=== PATIENT | female | born 1955 | race Caucasian/White ===

== ENCOUNTER 2020-08-23 07:50 | Outpatient (REF) | payer MEDICAID, SELFPAY ==
[2020-08-23 11:45] LABS: Alanine Aminotransferase 13 U/L (0-31); Anion Gap 12 (12-20); Aspartate Amino Transferase 21 U/L (5-31); Blood Urea Nitrogen 14 mg/dL (9-16); Calcium 9.2 mg/dL (8.4-10.2); Carbon Dioxide 29 mmol/L (22-29); Chloride 105 mmol/L (96-108); Cholesterol 177 mg/dL; Estimated Glomerular Filt Rate > 60; Glucose Fasting 96 mg/dL (60-99); HDL Cholesterol 68 mg/dL; LDL Cholesterol Calculated 92 mg/dl; Potassium 4.4 mmol/l (3.3-5.1); Sodium 142 mmol/L (135-145); Triglycerides 87 mg/dL
== END 2020-08-23 07:51 | disposition home or self-care (01) ==
LOC: HO.HMGCLDS 07:50
PROVIDERS: PCP Internal Medicine; Visit Provider Internal Medicine
DX: I10 Essential (primary) hypertension (principal); I69.30 Unspecified sequelae of cerebral infarction; I35.0 Nonrheumatic aortic (valve) stenosis; E78.5 Hyperlipidemia, unspecified
CPT/HCPCS: 80048; 80061; 84450; 84460

== ENCOUNTER → 2020-10-04 08:27 | Outpatient (REF) | payer MEDICAID, SELFPAY | LOC: HO.CARD 08:27 | PROVIDERS: Visit Provider Internal Medicine Cardiovascular Disease | DX: Z13.89 Encounter for screening for other disorder (principal) ==

== ENCOUNTER → 2020-10-11 08:53 | Outpatient (BNVA) | payer MEDICAID, SELFPAY | PROVIDERS: PCP Internal Medicine; Visit Provider Internal Medicine Cardiovascular Disease | DX: R07.9 Chest pain, unspecified (principal); I35.0 Nonrheumatic aortic (valve) stenosis | CPT/HCPCS: 99212 ==

== ENCOUNTER → 2021-01-16 09:52 | Outpatient (BNVA) | payer MEDICAID, SELFPAY | PROVIDERS: PCP Internal Medicine; Visit Provider Internal Medicine Cardiovascular Disease | DX: I10 Essential (primary) hypertension (principal); I97.89 Other postprocedural complications and disorders of the circulatory system, not elsewhere classified; I48.91 Unspecified atrial fibrillation; Z95.2 Presence of prosthetic heart valve; Z79.899 Other long term (current) drug therapy | CPT/HCPCS: 99212 ==

== ENCOUNTER 2021-02-06 08:11 | Outpatient (REF) | payer MEDICAID, SELFPAY ==
[2021-02-06 12:07] LABS: Alanine Aminotransferase 12 U/L (0-31); Anion Gap 14 (12-20); Aspartate Amino Transferase 17 U/L (5-31); Blood Urea Nitrogen 13 mg/dL (9-16); Calcium 9.2 mg/dL (8.4-10.2); Carbon Dioxide 27 mmol/L (22-29); Chloride 104 mmol/L (96-108); Cholesterol 150 mg/dL; Estimated Glomerular Filt Rate > 60; Glucose Fasting 98 mg/dL (60-99); HDL Cholesterol 63 mg/dL; LDL Cholesterol Calculated 70 mg/dl; Potassium 4.2 mmol/L (3.3-5.1); Sodium 141 mmol/L (135-145); Triglycerides 87 mg/dL
[2021-02-06 12:08] LABS: Vitamin D 25-OH Total 24.4 ng/mL (>30)
== END 2021-02-06 08:12 | disposition home or self-care (01) ==
LOC: HO.HMGCLDS 08:11
PROVIDERS: Visit Provider Internal Medicine
DX: E78.5 Hyperlipidemia, unspecified (principal); I10 Essential (primary) hypertension; I35.0 Nonrheumatic aortic (valve) stenosis; Z78.0 Asymptomatic menopausal state
CPT/HCPCS: 36415; 80048; 80061; 82306; 84450; 84460

== ENCOUNTER → 2021-02-23 08:15 | Outpatient (REF) | payer MEDICAID, SELFPAY ==
--- NOTE | 2021-02-23 08:22 | CA_ITS ---
Transthoracic Echocardiogram Patient (Last, First, Middle): Carrie Gonzales M Gender: Female Date of : 1955 Age: 65 Procedure Date: 02/23/2021 Procedure Type: Transthoracic Echocardiogram Location: OP Height: 154.94 cm Weight: 61.24 kg BSA: 1.60 m2 Heart Rate: bpm BP: 160 / 98 mmHg Key Carrier: ERIN Referring MD: Levon Reardon MD Television Writer: Levon Reardon MD Symptoms: Z95.2 - Presence of prosthetic heart valve Study Quality: Fair ECG Rhythm: Sinus Conclusions: - 1. Normal LV systolic function with impaired relaxation filling pattern 2. Normally function bioprosthetic aortic valve with mean gradient of 10 mm of mercury 3. Normal RV systolic pressure next 4. No pericardial effusion Findings Left Ventricle Normal left ventricular size, thickness, and systolic function. The visually estimated ejection fraction is between 60-65%. Spectral Doppler is indicative of an impaired relaxation filling pattern. E/E prime ratio is between 8 and 15 consistent with indeterminate filling pressures. There is mild septal asymmetric hypertrophy. Right Ventricle Normal right ventricular cavity size and systolic function. Atria Both atria are normal in size. There is no evidence of interatrial shunt. Aortic Valve A bioprosthetic aortic valve is present. The prosthetic aortic valve appears to be functioning normally. The mean gradient is 10 mmHg. There is no aortic valve regurgitation. A stented bioprosthesis in aortic position, well seated without abnormal rocking motion. Mitral Valve Normal mitral valve structure and function. There is trace mitral valve regurgitation. There is no mitral valve stenosis. Pulmonic Valve The pulmonic valve is likely normal. There is trace pulmonic valve regurgitation. Tricuspid Valve Normal tricuspid valve structure. There is trace tricuspid valve regurgitation. The right ventricular systolic pressure is normal. The right ventricular systolic pressure is 22 mmHg. Normal right atrial pressure. There is no evidence of pulmonary hypertension. Great Vessels All visible segments of the aorta are normal in size. The pulmonary artery was not well visualized. Venous The inferior vena cava is normal in size and collapses greater than 50% with inspiration. Pericardium/Pleural There is no evidence of pericardial effusion. Prior Study Comparison Changes noted compared to prior study dated: 06/02/2020. A normally functioning bioprosthetic aortic valve is present in place of severe aortic stenosis Measurements M-Mode Liner Measurements Normals - Women/Men AOV Cusps: 1.20 1.5-2.6 cm/m2 2D Linear Measurements IVSd: 1.30 0.6-0.9/0.6-1.0 cm LVIDd: 4.71 3.9-5.3/4.2-5.9 cm LVIDd Index: 2.94 2.4-3.2/2.2-3.1 cm/m2 LVIDs: 3.21 2.0-3.6 cm LVPWd: 0.93 0.7-1.1 cm Ao Root: 2.60 2.1-3.5 cm LA Diam: 3.30 2.7-3.8/3.0-4.0 cm LAIDs Index: 2.06 1.5-2.3 cm/m2 LV Mass: 253.89 67-162/88-224 g LV Mass Index: 158.68 43-95/49-115 g/m2 LVOT Diam: 2.20 3.0+(-)1.3 cm 2D Systolic Function EF 4C: 63.80 >55% EF 2C: 62.60 >55% EF BiP: 64.90 >55% Mitral Valve MV Pk E: 0.79 MV PK A: 0.99 MV Decel Time: 282.00 E/A: 0.80 E'Lateral: 10.10 E'Medial: 4.35 E/E' Med: 18.20 E/E' Lat: 7.80 PHT: 83.00 MVA PHT: 2.65 Decel Ritchie: 2.81 Aortic Valve AoV Pk Suman: 2.08 AoV Mn Suman: 1.45 AoV VTI: 0.50 AoV Pk Grad: 17.00 Aov Mn Grad: 10.00 [place] Cont.VTI: 1.15 LVOT LVOT Pk Suman: 0.74 LVOT Mn Suman: 0.49 LVOT VTI: 0.15 LVOT Pk Grad: 2.00 LVOT Mn Grad: 1.00 LVOT Diam: 2.20 LVOT Area: 3.80 Diastolic Function MV Pk E: 0.79 MV Pk A: 0.99 E/A: 0.80 E'Medial: 4.35 E/E' Med: 18.20 E' Laterial: 10.10 E/E' Lat: 7.80 Tricuspid Valve TR Pk Suman: 2.19 TR Pk Grad: 19.00 RA Press: 3.00 RVSP: 22.00 Great Vessels Aorta Ao Root-2D: 2.60 2.0-3.7 cm Ao Asc: 3.70 2.1-3.4 cm Ao Arch: 2.90 Pulmonary Valve PV Pk Suman: 1.13 Peak PV Grad: 5.00 Updated in Other Vendor System with Status of Final Levon Reardon MD electronically signed on 02/24/2021 11:39:58 AM with status of Final
--- NOTE | 2021-02-23 08:30 | ECG_ITS ---
Hook-up date: 2021-02-23 09:40:00 Duration: 26:15:00 Test Indications: PVC Medications: 13682 QRS complexes 29 Ventricular ectopics which represent <1 % of total QRS comp. 20 Supraventricular ectopics which represent <1 % of total QRS comp. * Paced QRS complexs which represent % of total QRS comp. VENTRICULAR ECTOPY 29 Isolated 0 Bigeminal Cycles 0 Couplets 0 Runs 0 Beats in Runs * Beats LONGEST at * BPM at :: -- * Beats FASTEST at * BPM at :: -- SUPRAVENTRICULAR ECTOPY 12 Isolated 4 Couplets 0 Runs 0 Beats in Runs * Beats LONGEST at * BPM at :: -- * Beats FASTEST at * BPM at :: -- HEART RATES 41 MIN at 23:04:20 2021-02-23 58 AVG 78 MAX at 11:56:54 2021-02-23 LONGEST RR 1.7280 secs at 23:57:17 2021-02-23 S-T LEVELS Channel 1 - 128 mm at 09:40:00 2021-02-23 - 128 mm at 09:40:00 2021-02-23 Channel 2 - 128 mm at 09:40:00 2021-02-23 - 128 mm at 09:40:00 2021-02-23 Channel 3 - 128 mm at 02:85:91 -- - 128 mm at 02:85:91 Underlying rhythm is sinus; Average ventricular rate 58/min; range 41-78/min; About 57% of the time, rate <60/min; Rare PACs, PVCs; No symptoms described in patient diary. Referred By: Levon Reardon Overread By: AVA MERCADO
== END ==
LOC: HO.CARD 08:15
PROVIDERS: Visit Provider Internal Medicine Cardiovascular Disease
DX: I49.3 Ventricular premature depolarization (principal); Z95.3 Presence of xenogenic heart valve
CPT/HCPCS: 93225; 93226; 93306

== ENCOUNTER → 2021-03-09 09:58 | Outpatient (BNVA) | payer MEDICAID, SELFPAY | PROVIDERS: PCP Internal Medicine; Referring Provider Internal Medicine; Visit Provider Nurse Practitioner Family | DX: I97.89 Other postprocedural complications and disorders of the circulatory system, not elsewhere classified (principal); I48.91 Unspecified atrial fibrillation; I10 Essential (primary) hypertension; E78.5 Hyperlipidemia, unspecified; Z98.890 Other specified postprocedural states; Z95.2 Presence of prosthetic heart valve | CPT/HCPCS: 99212 ==

== ENCOUNTER → 2021-06-21 08:42 | Outpatient (BNVA) | payer MEDICAID, SELFPAY | PROVIDERS: PCP Internal Medicine; Referring Provider Internal Medicine; Visit Provider Internal Medicine Cardiovascular Disease | DX: I10 Essential (primary) hypertension (principal); Z95.2 Presence of prosthetic heart valve | CPT/HCPCS: 99212 ==

== ENCOUNTER 2021-06-29 09:01 | Outpatient (REF) | payer MEDICAID, SELFPAY ==
[2021-06-29 11:57] LABS: Alanine Aminotransferase 14 U/L (0-31); Anion Gap 14 (12-20); Aspartate Amino Transferase 22 U/L (5-31); Blood Urea Nitrogen 10 mg/dL (9-16); Carbon Dioxide 28 mmol/L (22-29); Chloride 105 mmol/L (96-108); Cholesterol 169 mg/dL; Estimated Glomerular Filt Rate > 60; Glucose Fasting 86 mg/dL (60-99); HDL Cholesterol 64 mg/dL; LDL Cholesterol Calculated 87 mg/dl; Potassium 4.5 mmol/L (3.3-5.1); Sodium 142 mmol/L (135-145); Triglycerides 93 mg/dL
[2021-06-29 12:06] LABS: Vitamin D 25-OH Total 70.9 ng/mL (>30)
== END 2021-06-29 09:02 | disposition home or self-care (01) ==
LOC: HO.HMGCLDS 09:01
PROVIDERS: PCP Internal Medicine; Visit Provider Internal Medicine
DX: E55.9 Vitamin D deficiency, unspecified (principal); E78.5 Hyperlipidemia, unspecified; I10 Essential (primary) hypertension
CPT/HCPCS: 36415; 80048; 80061; 82306; 84450; 84460

== ENCOUNTER 2021-08-15 08:29 | Outpatient (REF) | payer MEDICAID, SELFPAY ==
--- NOTE | ~2021-08-15 | MM_ITS ---
EXAMINATION: MM SCREENING DIGITAL BREAST TOMOSYNTHESIS, BILATERAL CLINICAL INFORMATION: Screening. Asymptomatic. The lifetime risk of breast cancer based on the Tyrer-Cuzick Model is 5%. COMPARISON: Mammography: 11/20/2019 (baseline) TECHNIQUE: Digital breast tomosynthesis is performed in both the craniocaudal and mediolateral oblique views along with computer-aided detection (CAD). Synthesized 2D images are generated from the tomosynthesis. Additional left MLO view is provided. FINDINGS: There are scattered areas of fibroglandular density (ACR BI-RADS breast composition Category b). There are no significant masses, abnormal calcifications, or other abnormalities. The axilla and skin contours are unremarkable. No significant baseline exam. MM/MM tomosynthesis screening BI IMPRESSION: No mammographic evidence of malignancy. ASSESSMENT: BI-RADS 1: Negative RECOMMENDATION: Routine annual mammography screening. This patient's information was entered into a reminder system with a target due date for their next mammogram.
== END 2021-08-15 08:30 | disposition home or self-care (01) ==
LOC: HO.MAMMO 08:29
PROVIDERS: Visit Provider Internal Medicine
DX: Z12.31 Encounter for screening mammogram for malignant neoplasm of breast (principal)
CPT/HCPCS: 77063; 77067

== ENCOUNTER 2021-11-29 03:25 | Emergency (ER) | payer MEDICAID, SELFPAY ==
--- NOTE | ~2021-11-29 | CT_ITS ---
EXAMINATION: CT HEAD WITHOUT CONTRAST CLINICAL INFORMATION: Dizziness, history of CVA COMPARISON: 10/03/2019 TECHNIQUE: Contiguous axial imaging was performed from the skull base to vertex without intravenous administration of contrast. This CT examination was performed using dose optimization techniques as appropriate, variously including the following: *Automated exposure control *Adjustment of mA and/or kV according to patient size (this includes techniques or standardized protocols for targeted exams where dose is matched to indication/reason for exam; i.e. extremities or head) *Use of iterative reconstruction technique DLP: 610 mGy-cm FINDINGS: There is no evidence of acute intracranial hemorrhage or territorial infarction. No abnormal mass effect or midline shift is seen. Reyes to white matter differentiation is well preserved. No extra-axial fluid collections are identified. The ventricles are normal in size. There is a region of high right frontoparietal encephalomalacia at the location of prior intraparenchymal hemorrhage from 10/03/2019. There is mild periventricular white matter hypoattenuation consistent with chronic small vessel ischemic disease. The osseous structures and soft tissues are normal. The mastoid air cells and visualized portions of the paranasal sinuses are well aerated. CT/CT head/brain wo con IMPRESSION: No acute intracranial pathology. Region of high right frontoparietal encephalomalacia.
[2021-11-29 03:29] VITALS: BP 157/98; PULSE 81; RESP 18; TEMP 36.4; O2SAT 96; BMI 25.4
--- NOTE | 2021-11-29 03:38 | PC.NURSE ---
Pt ambulatory to room, MD Delacruz notified of pt sx and hx, NIDIA 90 min REMOTE INPATIENT CODER
--- NOTE | 2021-11-29 03:41 | ECG_ITS ---
Test Reason : TIA RULEOUT Blood Pressure : / mmHG Vent. Rate : 075 BPM Atrial Rate : 075 BPM P-R Int : 294 ms QRS Dur : 096 ms QT Int : 382 ms P-R-T Axes : 064 -41 097 degrees QTc Int : 426 ms Sinus rhythm with 1st degree A-V block Left axis deviation Nonspecific ST and T wave abnormality Abnormal ECG When compared with ECG of 03-OCT-2019 18:10, T wave inversion more evident in Lateral leads Referred By: Generic ED Physician Electronically Signed By:AVA MERCADO
[2021-11-29 03:50] LABS: Glucose, Whole Blood 125 mg/dL (60-115)
[2021-11-29 03:54] LABS: MANUAL DIFF FLAG NO
[2021-11-29 03:55] LABS: Basophils Percent Auto 0.7 % (0-2); Eosinophils Absolute Auto 0.3 X10*3/uL (0.0-0.4); Eosinophils Percent Auto 6.9 % (0-4); Hematocrit 40.3 % (37.0-47.0); Hemoglobin 12.7 g/dl (12.0-16.0); Imm Gran Abs Auto 0.01 X10*3/uL (0.00-0.03); Imm Gran Pct Auto 0.2 % (0.0-0.4); Lymphocytes Absolute Auto 1.6 X10*3/uL (1.2-4.9); Lymphocytes Percent Auto 35.3 % (20-40); Mean Corpuscular HGB Conc 31.5 g/dl (31.0-35.0); Mean Corpuscular Hemoglobin 27.7 pg (27.0-33.0); Mean Corpuscular Volume 87.8 fL (80.0-98.0); Mean Platelet Volume 9.9 fL (9.4-12.3); Monocytes Absolute Auto 0.4 X10*3/uL (0.1-1.2); Monocytes Percent Auto 8.1 % (2-11); Neutrophils Absolute Auto 2.2 x10*3/uL (2.0-8.3); Neutrophils Percent Auto 48.8 % (45-73); Platelet Count 284 X10*3/uL (160-400); Red Blood Count 4.59 X10*6/uL (4.20-5.50); Red Cell Distribution Width 14.1 % (11.0-16.0); White Blood Count 4.5 X10*3/uL (4.8-10.8)
--- NOTE | 2021-11-29 04:01 | ED_ITS ---
HPI - Dizziness General Chief Complaint: Dizziness Stated Complaint: High Blood Pressure Time Seen by Provider: 11/29/21 03:52 Source: patient and EMS Mode of arrival: EMS Limitations: no limitations History of Present Illness HPI Narrative: Patient comes emergency room complaining of dizziness. Patient states that she woke up prior to arrival feeling dizzy, patient decided to get up to go to the bathroom. Patient states that she was feeling lightheaded. Patient has history of vertigo, states she was not sure if she had vertigo., states the room was not spinning but she feels lightheaded. Patient did not fall, when she reached the bathroom, patient vomited. When patient arrived to emergency room, patient states that all the dizziness had resolved. Patient states that she did not have any episodes of facial drooping to her knowledge, no numbness or tingling. Patient states that she has chronic weakness on her left lower extremity due to a previous hemorrhagic stroke. Patient states that all her symptoms today lasted for a few minutes Related Data Previous Rx's Medication Instructions Recorded aspirin 81 mg tablet,delayed 81 mg PO DAILY #30 tab 10/11/20 release (Ecotrin Low Strength) cholecalciferol (vitamin D3) 125 125 mcg PO DAILY 90 Days #90 cap 06/14/21 mcg (5,000 unit) capsule metoprolol succinate 50 mg 50 mg PO DAILY #30 tab 06/21/21 tablet,extended release 24 hr (Toprol XL) rosuvastatin 10 mg tablet 10 mg PO DAILY #30 tab 07/06/21 amoxicillin 500 mg capsule 2,000 mg PO ONCE #4 cap 07/28/21 meclizine 25 mg tablet 25 mg PO TID PRN #10 tab 11/29/21 Allergies Allergy/AdvReac Type Severity Reaction Status Date / Time No Known Allergies Allergy Verified 11/29/21 03:28 [No Known Allergies*] Review of Systems Verdana 4l Review of Systems: Verdana 4d Verdana 4d Constitutional : No Weight loss, No Fever, No Chills, No Night Sweats, No Fatigue, No Malaise ENT/Mouth : No Hearing loss, No Ear Pain, No Nasal Congestion, No Sinus Pain, No Hoarseness, No sore throat, No Rhinorrhea, No Swallowing DifficultyDifficulty Eyes: No Eye Pain, No Swelling, No Redness, No Foreign Body, No Discharge, No Vision Changes Cardiovascular : No Chest Pain, No SOB, No Dyspnea on Exertion, No Orthopnea, No Edema, No Palpitations Respiratory : No Cough, No Sputum, No Wheezing, No Smoke Exposure, No Dyspnea Gastrointestinal : No Nausea, No Vomiting, No Diarrhea, No Constipation, No abdominal Pain, No Hematochezia, No Melena Genitourinary : no irregular bleeding, No Dysuria, No Urinary Frequency, No Hematuria, No Urinary Incontinence, No Urgency, No Flank Pain, No Urinary Flow Changes, No Hesitancy Musculoskeletal : No joint pain, No Myalgias, No Joint Swelling Skin : No Skin Lesions, No rash Neuro : No Weakness, No Numbness, No Paresthesias, No Loss of Consciousness, dizziness that self-resolved, No Headache Psych : No Anxiety/Panic, No Depression, No SI/HI/AH/VH, No Social Issues, Heme/Lymph: No Bruising, No Bleeding,No Lymphadenopathy Endocrine : No Polyuria, No Polydipsia, No Temperature Intolerance [facility] Past Medical History Medical History Essential hypertension History of CVA with residual deficit History of intracerebral hemorrhage without residual deficit Hyperlipidemia LDL goal <70 Postoperative atrial fibrillation Severe aortic stenosis Vitamin D deficiency Surgical History History of cardiac catheterization Status post aortic valve replacement Family History Family History Father Myocardial infarction Coronary artery disease Mother Coronary artery disease CVA (cerebral vascular accident) Mental health disorder Other No known health problems Social History Social History Housing: House Alcohol intake: never Patient Tobacco Use Status: Never used Tobacco e-Cigarette/Vaping Use: Never Used Second Hand Smoke Exposure: No Advance Directives: No service: No Current occupational status: retired Physical Exam Verdana 4l Vital Signs: Verdana 4d Verdana 4d Vital Signs: Verdana 4d Verdana 4Bd Last Vital Signs Verdana 4d Channel Sales Director New 4d Channel Sales Director New 4d Temp 97.5 F 11/29/21 03:29 Channel Sales Director New 4d Pulse 86 11/29/21 04:16 Channel Sales Director New 4d Resp 18 11/29/21 03:29 BP 141/96 H 11/29/21 04:16 Pulse Ox 96 11/29/21 03:29 BMI result Body Mass Index 25.4 Const: Other: Appearance: Alert. Oriented X3. No acute distress. Well-appearing Eyes: Pupils equal, round and reactive to light. ENT: Pharynx normal. Neck: Normal inspection. Neck supple. No lymph nodes noted. No crepitus CVS: Normal heart rate and rhythm. Pulses normal. Normal S1 and S2 Respiratory: No respiratory distress. Breath sounds normal. No Wheezing. No rales Abdomen: Soft and nontender. No rigidity. No distention. good BS x4 Skin: Skin warm and dry. Normal skin color. Normal skin turgor. Extremities: No lower extremity edema. No Lacerations. No Rash Neuro: Oriented X 3. No motor deficit. No sensory deficit. Moving all extermities. No slurred speech. Cranial nerves 2-12 grossly intact NIH Stroke Scale Level of Consciousness: Alert Level of Consciousness Questions: Answers both questions correctly Level of Consciousness Commands: Performs both tasks correctly Best Gaze: Normal Visual: No visual loss Facial Palsy: Normal Motor Arm (Right): No drift Motor Arm (Left): No drift Motor Leg (Right): No drift Motor Leg (Left): No drift Limb Ataxia: Absent Sensory: Normal Best Language: No aphasia Dysarthia: Normal Extinction and Inattention: No abnormality Score: 0 Course Course Course Narrative: I discussed the labs and CT with the patient, no acute findings. Orthostatic vitals negative. Patient states that she feels well. Patient usually walks with a cane. However, patient was able to walk with fast steady gait and unassisted. Patient did not have any dizziness. Patient states that she feels well. TIA is not suspected at this time MDM - Dizziness Lab Data Result diagrams: 11/29/21 03:46 11/29/21 03:46 Labs: Lab Results 11/29/21 11/29/21 11/29/21 Range/Units 03:41 03:46 03:46 WBC 4.5 L (4.8-10.8) X10*3/uL RBC 4.59 (4.20-5.50) X10*6/uL Hgb 12.7 (12.0-16.0) g/dl Hct 40.3 (37.0-47.0) % MCV 87.8 (80.0-98.0) fL MCH 27.7 (27.0-33.0) pg MCHC 31.5 (31.0-35.0) g/dl RDW 14.1 (11.0-16.0) % Plt Count 284 (160-400) X10*3/uL MPV 9.9 (9.4-12.3) fL Immature Gran % (Auto) 0.2 (0.0-0.4) % Neut % (Auto) 48.8 (45-73) % Lymph % (Auto) 35.3 (20-40) % Josephine % (Auto) 8.1 (2-11) % Eos % (Auto) 6.9 H (0-4) % Baso % (Auto) 0.7 (0-2) % Lymph # (Auto) 1.6 (1.2-4.9) X10*3/uL Josephine # (Auto) 0.4 (0.1-1.2) X10*3/uL Eos # (Auto) 0.3 (0.0-0.4) X10*3/uL Baso # (Auto) 0.0 (0.0-0.2) X10*3/uL Abs Immat Gran (auto) 0.01 (0.00-0.03) X10*3/uL Absolute Neuts (auto) 2.2 (2.0-8.3) x10*3/uL Absolute Nucleated RBC 0.000 (0.0-0.012) X10*3/uL Nucleated RBC % (auto) 0.0 (0.0-0.2) /100WBC Sodium 142 (135-145) mmol/L Potassium 3.7 (3.3-5.1) mmol/L Chloride 106 (96-108) mmol/L Carbon Dioxide 28 (22-29) mmol/L Anion Gap 12 (12-20) BUN 16 (9-16) mg/dL Creatinine 0.94 (0.5-1.4) mg/dL Estim Creat Clear Calc 48.0 Estimated GFR 59 POC Glucose 125 H (60-115) mg/dL Random Glucose 123 H (60-115) mg/dL Calcium 10.0 (8.4-10.2) mg/dL Total Bilirubin 0.6 (0.0-1.0) mg/dL AST 26 (5-31) U/L ALT 23 (0-31) U/L Alkaline Phosphatase 55 (39-117) U/L Troponin I High Sens (<3.5-17.0) ng/L Total Protein 7.1 (6.5-8.0) g/dL Albumin 4.4 (3.5-5.0) g/dL COVID-19 ([facility]) (Negative) COVID-19 Clin Com 11/29/21 11/29/21 Range/Units 03:46 03:46 WBC (4.8-10.8) X10*3/uL RBC (4.20-5.50) X10*6/uL Hgb (12.0-16.0) g/dl Hct (37.0-47.0) % MCV (80.0-98.0) fL MCH (27.0-33.0) pg MCHC (31.0-35.0) g/dl RDW (11.0-16.0) % Plt Count (160-400) X10*3/uL MPV (9.4-12.3) fL Immature Gran % (Auto) (0.0-0.4) % Neut % (Auto) (45-73) % Lymph % (Auto) (20-40) % Josephine % (Auto) (2-11) % Eos % (Auto) (0-4) % Baso % (Auto) (0-2) % Lymph # (Auto) (1.2-4.9) X10*3/uL Josephine # (Auto) (0.1-1.2) X10*3/uL Eos # (Auto) (0.0-0.4) X10*3/uL Baso # (Auto) (0.0-0.2) X10*3/uL Abs Immat Gran (auto) (0.00-0.03) X10*3/uL Absolute Neuts (auto) (2.0-8.3) x10*3/uL Absolute Nucleated RBC (0.0-0.012) X10*3/uL Nucleated RBC % (auto) (0.0-0.2) /100WBC Sodium (135-145) mmol/L Potassium (3.3-5.1) mmol/L Chloride (96-108) mmol/L Carbon Dioxide (22-29) mmol/L Anion Gap (12-20) BUN (9-16) mg/dL Creatinine (0.5-1.4) mg/dL Estim Creat Clear Calc Estimated GFR POC Glucose (60-115) mg/dL Random Glucose (60-115) mg/dL Calcium (8.4-10.2) mg/dL Total Bilirubin (0.0-1.0) mg/dL AST (5-31) U/L ALT (0-31) U/L Alkaline Phosphatase (39-117) U/L Troponin I High Sens 5.8 (<3.5-17.0) ng/L Total Protein (6.5-8.0) g/dL Albumin (3.5-5.0) g/dL COVID-19 ([facility]ERS) Negative (Negative) COVID-19 Clin Com See Note Discharge Plan Discharge Clinical Impression: Dizziness Patient Disposition: Home, Self-Care Instructions: Dizziness (ED) Additional Instructions: Please follow-up with your primary care physician tomorrow. If you have any worsening or new symptoms, please return to the emergency room or call 911 Prescriptions: New meclizine 25 mg tablet 25 mg PO TID PRN (Reason: dizziness) Qty: 10 0RF No Action cholecalciferol (vitamin D3) 125 mcg (5,000 unit) capsule 125 mcg PO DAILY 90 Days Qty: 90 1RF amoxicillin 500 mg capsule 2,000 mg PO ONCE Qty: 4 1RF Rx Instructions: Take 4 capsules by mouth 1 hour before procedure rosuvastatin 10 mg tablet 10 mg PO DAILY Qty: 30 5RF aspirin [Ecotrin Low Strength] 81 mg tablet,delayed release (DR/EC) 81 mg PO DAILY Qty: 30 0RF metoprolol succinate [Toprol XL] 50 mg tablet extended release 24 hr 50 mg PO DAILY Qty: 30 5RF
--- NOTE | 2021-11-29 04:01 | PC.NURSE ---
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 Per pt, woke up and felt lighteaded. denies any room spinning. Per pt, felt nauseous and vomited x 1 Pt states symptoms have resolved. Pt states LT leg feels numb but residual from previous CVA 2 years ago AxO x 4, clear and complete sentences Will continue to monitor
[2021-11-29 04:09] LABS: Alanine Aminotransferase 23 U/L (0-31); Albumin Level 4.4 g/dL (3.5-5.0); Alkaline Phosphatase 55 U/L (39-117); Anion Gap 12 (12-20); Aspartate Amino Transferase 26 U/L (5-31); Bilirubin Total 0.6 mg/dL (0.0-1.0); Blood Urea Nitrogen 16 mg/dL (9-16); Carbon Dioxide 28 mmol/L (22-29); Chloride 106 mmol/L (96-108); Estimated Glomerular Filt Rate 59; Glucose Random 123 mg/dL (60-115); Potassium 3.7 mmol/L (3.3-5.1); Sodium 142 mmol/L (135-145); Total Protein 7.1 g/dL (6.5-8.0)
[2021-11-29 04:10] LABS: COVID-19 Test Negative (Negative); IDNOW Serial# 9DD0AD1C
[2021-11-29 04:14] VITALS: BP 154/89; PULSE 84
[2021-11-29 04:15] VITALS: BP 149/93; PULSE 75
[2021-11-29 04:16] VITALS: BP 141/96; PULSE 86
[2021-11-29] MEDS: Meclizine HCl 25 MG TABLET 50 MG PO (04:30)
[2021-11-29 04:36] LABS: Troponin-I High Sensitivity 5.8 ng/L (<3.5-17.0)
== END 2021-11-29 05:28 | disposition home or self-care (01) ==
PROVIDERS: Emergency Provider Emergency Medicine; PCP Internal Medicine
DX: R42 Dizziness and giddiness (principal); I10 Essential (primary) hypertension; Z20.822 Contact with and (suspected) exposure to COVID-19; Z79.899 Other long term (current) drug therapy
CPT/HCPCS: 36415; 70450; 80053; 82947; 84484; 85025; 87635; 93005; 99283; 99284

== ENCOUNTER 2021-12-05 08:40 | Outpatient (REF) | payer MEDICAID, SELFPAY ==
[2021-12-05 12:09] LABS: Vitamin D 25-OH Total 73.3 ng/mL (>30)
[2021-12-05 12:13] LABS: Alanine Aminotransferase 17 U/L (0-31); Anion Gap 13 (12-20); Aspartate Amino Transferase 24 U/L (5-31); Blood Urea Nitrogen 17 mg/dL (9-16); Carbon Dioxide 29 mmol/L (22-29); Chloride 104 mmol/L (96-108); Cholesterol 176 mg/dL; Estimated Glomerular Filt Rate > 60; Glucose Fasting 99 mg/dL (60-99); HDL Cholesterol 72 mg/dL; LDL Cholesterol Calculated 88 mg/dl; Sodium 142 mmol/L (135-145); Triglycerides 81 mg/dL
== END 2021-12-05 08:41 | disposition home or self-care (01) ==
LOC: HO.HMGCLDS 08:40
PROVIDERS: Visit Provider Internal Medicine
DX: E55.9 Vitamin D deficiency, unspecified (principal); E78.5 Hyperlipidemia, unspecified; I10 Essential (primary) hypertension; Z95.2 Presence of prosthetic heart valve
CPT/HCPCS: 36415; 80048; 80061; 82306; 84450; 84460

== ENCOUNTER → 2021-12-11 07:24 | Outpatient (REF) | payer MEDICAID, SELFPAY ==
--- NOTE | 2021-12-11 07:28 | CA_ITS ---
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 Normal LV systolic function with impaired relaxation filling pattern 2. Normally function bioprosthetic aortic valve with mean gradient of 10 mmHg 3. Normal RV systolic pressure 4. No gross pericardial effusion Findings Left Ventricle Normal left ventricular size, thickness, and systolic function. The visually estimated ejection fraction is between 60-65%. Regional wall motion abnormalities can not be excluded due to suboptimal endocardial definition. Spectral Doppler is indicative of an impaired relaxation filling pattern. There is mild septal asymmetric hypertrophy. Right Ventricle Normal right ventricular cavity size and systolic function. Atria The left atrium is likely dilated. There is lipomatous hypertrophy of the interatrial septum. There is no evidence of interatrial shunt. The right atrium is normal in size. Aortic Valve A bioprosthetic aortic valve is present. The prosthetic aortic valve appears to be functioning normally. The mean gradient is 10 mmHg. There is no aortic valve regurgitation. Mitral Valve There is mild anterior and moderate posterior mitral leaflet thickening. The posterior mitral leaflet has restricted mobility. There is mild mitral annular calcification. There is trace mitral valve regurgitation. There is no mitral valve stenosis. Pulmonic Valve The pulmonic valve was not well visualized. Tricuspid Valve Likely normal tricuspid valve structure and function. There is mild tricuspid valve regurgitation. The right ventricular systolic pressure is normal. The right ventricular systolic pressure is 28 mmHg. Normal right atrial pressure. There is no evidence of pulmonary hypertension. Great Vessels All visible segments of the aorta are normal in size. The pulmonary artery was not well visualized. Venous The inferior vena cava is normal in size and collapses greater than 50% with inspiration. Pericardium/Pleural There is no evidence of pericardial effusion. Prior Study Comparison No significant change compared to prior study dated: 02/23/2021. Measurements 2D Linear Measurements IVSd: 1.35 0.6-0.9/0.6-1.0 cm LVIDd: 4.36 3.9-5.3/4.2-5.9 cm LVIDd Index: 2.56 2.4-3.2/2.2-3.1 cm/m2 LVIDs: 2.79 2.0-3.6 cm LVPWd: 0.95 0.7-1.1 cm Ao Root: 3.30 2.1-3.5 cm LA Diam: 3.20 2.7-3.8/3.0-4.0 cm LAIDs Index: 1.88 1.5-2.3 cm/m2 LV Mass: 221.58 67-162/88-224 g LV Mass Index: 130.34 43-95/49-115 g/m2 LVOT Diam: 2.30 3.0+(-)1.3 cm 2D Systolic Function EF 4C: 61.70 >55% EF 2C: 64.30 >55% EF BiP: 61.80 >55% Mitral Valve MV Pk E: 0.62 MV PK A: 1.08 MV Decel Time: 193.00 E/A: 0.60 E'Lateral: 8.59 E'Medial: 5.33 E/E' Med: 11.60 E/E' Lat: 7.20 PHT: 57.00 MVA PHT: 3.86 Decel Moody: 3.21 Aortic Valve AoV Pk Suman: 2.07 AoV Mn Suman: 1.50 AoV VTI: 0.45 AoV Pk Grad: 17.00 Aov Mn Grad: 10.00 [place] Cont.VTI: 2.26 LVOT LVOT Pk Suman: 1.06 LVOT Mn Suman: 0.72 LVOT VTI: 0.24 LVOT Pk Grad: 4.00 LVOT Mn Grad: 2.00 LVOT Diam: 2.30 LVOT Area: 4.15 Diastolic Function MV Pk E: 0.62 MV Pk A: 1.08 E/A: 0.60 E'Medial: 5.33 E/E' Med: 11.60 E' Laterial: 8.59 E/E' Lat: 7.20 Right Ventricle TAPSE (mm): 17.10 TVS' Suman: 8.27 Tricuspid Valve TR Pk Suman: 2.48 TR Pk Grad: 25.00 RA Press: 3.00 RVSP: 28.00 Great Vessels Aorta Ao Root-2D: 3.30 2.0-3.7 cm Ao Asc: 3.40 2.1-3.4 cm Ao Arch: 3.20 Updated in Other Vendor System with Status of Final Levon Reardon MD electronically signed on 12/11/2021 12:14:36 PM with status of Final
== END ==
LOC: HO.CARD 07:24
PROVIDERS: PCP Internal Medicine; Visit Provider Internal Medicine Cardiovascular Disease
DX: Z95.2 Presence of prosthetic heart valve (principal)
CPT/HCPCS: 93306

== ENCOUNTER → 2021-12-21 08:53 | Outpatient (BNVA) | payer MEDICAID, SELFPAY | PROVIDERS: PCP Internal Medicine; Referring Provider Internal Medicine; Visit Provider Internal Medicine Cardiovascular Disease | DX: R42 Dizziness and giddiness (principal); I10 Essential (primary) hypertension; Z95.2 Presence of prosthetic heart valve | CPT/HCPCS: 99212 ==

== ENCOUNTER → 2022-02-09 12:56 | Outpatient (REF) | payer MEDICAID, SELFPAY ==
--- NOTE | 2022-02-09 13:30 | ECG_ITS ---
Hook-up date: 2022-02-09 12:12:00 Duration: 47:59:00 Test Indications: DIZZINESS Medications: 234713 QRS complexes 456 Ventricular ectopics which represent <1 % of total QRS comp. 49 Supraventricular ectopics which represent <1 % of total QRS comp. * Paced QRS complexs which represent % of total QRS comp. VENTRICULAR ECTOPY 452 Isolated 0 Bigeminal Cycles 2 Couplets 0 Runs 0 Beats in Runs * Beats LONGEST at * BPM at :: -- * Beats FASTEST at * BPM at :: -- SUPRAVENTRICULAR ECTOPY 37 Isolated 1 Couplets 3 Runs 10 Beats in Runs 4 Beats LONGEST at 102 BPM at 23:31:58 2022-02-10 3 Beats FASTEST at 120 BPM at 22:32:16 2022-02-09 HEART RATES 45 MIN at 21:21:43 2022-02-10 77 AVG 108 MAX at 05:31:13 2022-02-10 LONGEST RR 1.4800 secs at 21:38:24 2022-02-10 S-T LEVELS Channel 1 - 128 mm at 12:12:00 2022-02-09 - 128 mm at 12:12:00 2022-02-09 Channel 2 - 128 mm at 12:12:00 2022-02-09 - 128 mm at 12:12:00 2022-02-09 Channel 3 - 128 mm at 03:13:11 -- - 128 mm at 03:13:11 Underlying rhythm is sinus; Average ventricular rate 77/min; range 45-108/min; Rare supraventricular ectopy with minimal burden; Rare ventricular ectopy with minimal burden; 2 couplets; Patient did not report any symptoms in the diary Referred By: Levon Reardon Overread By: AVA MERCADO
== END ==
LOC: HO.CARD 12:56
PROVIDERS: PCP Internal Medicine; Visit Provider Internal Medicine Cardiovascular Disease
DX: R42 Dizziness and giddiness (principal)
CPT/HCPCS: 93225; 93226

== ENCOUNTER 2022-07-13 12:19 | Emergency (ER) | payer MEDICAID, SELFPAY ==
--- NOTE | ~2022-07-13 | XR_ITS ---
EXAMINATION: XR CHEST CLINICAL INFORMATION: Chest pain and weakness COMPARISON: None TECHNIQUE: Portable semiupright 12:19 PM view of the chest was obtained. FINDINGS: Slight cephalization of pulmonary vasculature. Mild cardiomegaly. Evidence of previous cardiac surgery. No major zones of airspace disease or pleural disease or ectopic air. XR/XR chest 1V IMPRESSION: Mild pulmonary vascular congestion as above. No infiltrate.
--- NOTE | ~2022-07-13 | CT_ITS ---
EXAMINATION: CT HEAD WITHOUT CONTRAST (STROKE PROTOCOL) CLINICAL INFORMATION: Stroke protocol. Slurred speech. Confusion. Left leg weakness. COMPARISON: Previous head CT scans most recent November 2021 TECHNIQUE: Contiguous axial imaging was performed from the skull base to vertex without intravenous administration of contrast. This CT examination was performed using dose optimization techniques as appropriate, variously including the following: *Automated exposure control *Adjustment of mA and/or kV according to patient size (this includes techniques or standardized protocols for targeted exams where dose is matched to indication/reason for exam; i.e. extremities or head) *Use of iterative reconstruction technique DLP: 623 mGy-cm FINDINGS: There is no evidence of an extra-axial collection. There is a new area of intraparenchymal hemorrhage seen in the right frontal parietal subcortical and periventricular white matter region. This measures 2.6 x 3.4 x 2.3 cm. There is some surrounding edema. The ventricles and extra-axial CSF spaces are appropriate. There is nonspecific periventricular white matter disease. There is an old right periventricular and subcortical white matter parietal infarct or area of encephalomalacia that is unchanged. Review at bone windows is unremarkable. Visualized paranasal sinuses, mastoid air cells and middle ears are clear. CT/CT head for stroke IMPRESSION: New area of intraparenchymal hemorrhage in the right frontal and parietal lobes measuring 2.6 x 3.4 x 2.3 cm. Nonspecific periventricular white matter disease and stable old infarct or area of encephalomalacia in the right posterior parietal lobe. This critical result was discussed with Dr. Smith at 1239 hours on 07/13/2022. It was ascertained that the content and urgency of the report was understood at the time of direct communication.
--- NOTE | 2022-07-13 12:20 | ECG_ITS ---
Test Reason : weakness Blood Pressure : / mmHG Vent. Rate : 079 BPM Atrial Rate : 079 BPM P-R Int : 230 ms QRS Dur : 094 ms QT Int : 374 ms P-R-T Axes : 091 -41 055 degrees QTc Int : 428 ms Poor data quality, interpretation may be adversely affected Sinus rhythm with 1st degree A-V block Left axis deviation Pulmonary disease pattern Abnormal ECG When compared with ECG of 29-NOV-2021 03:45, No significant change was found Referred By: Kashif Smith Electronically Signed By:ROSENDA LEOS
[2022-07-13 12:25] LABS: Prothrombin Time Whole Bld POC 12.6 sec (11.1-13.5)
[2022-07-13 12:27] LABS: Glucose, Whole Blood 117 mg/dL (60-115)
[2022-07-13 12:31] VITALS: BP 175/108; PULSE 86; RESP 22; TEMP 36.4; O2SAT 99; BMI 28.5
--- NOTE | 2022-07-13 12:36 | ED_ITS ---
HPI - Weakness General Chief complaint: Stroke Stated complaint: Stroke Time Seen by Provider: 07/13/22 12:20 Source: family (, Pete) Mode of arrival: ambulatory Limitations: altered mental status History of Present Illness HPI Narrative: 67-year-old female who presents emergency department for evaluation of confusion, difficulty talking and left leg weakness. The information came from the patient's Pete who brought the patient to the emergency department by van. He states that the patient woke up this morning at 06:30. The patient was able to make breakfast for her and herself. She then walked to stop and shop to do some grocery shopping. states she for got some items and he drove her back to the store. When the patient came out of the store she seemed to be confused and had some trouble talking. She also had difficulty getting into the van since she could not lift her left leg up. The states that this was a sudden change in the patient's behavior and this occurred around 09:00. The states the patient had a stroke approximately 3 years ago which was complicated by a bleed. The patient was treated at [facility] and was hospitalized for approximately 17 days. The then called the patient's his sister who is a nurse practitioner for the GI group at [facility] and his sister advised the patient's that the patient be brought to this hospital for evaluation. Therefore the drove his here to [facility]. The patient has a history of aortic valve replacement secondary to bicuspid valve and severe stenosis, this was done 3 years prior at [facility]. The patient is only taking aspirin and is not on any other anticoagulants. The states the patient has not been ill over the past several days. She has not complained of headache, fever, chills, rhinorrhea, sore throat, cough, chest pain, shortness of breath, nausea, vomiting, diarrhea. She has not had any unusual bruising or bleeding episodes. MD Complaint: focal weakness Onset (ago): hour(s) (3) Duration: constant Location: LLE Severity: moderate Quality: tingling, numbness and other (Having) Relieving factors: none Exacerbating factors: none Associated symptoms: denies other symptoms Related Data Previous Rx's Medication Instructions Recorded aspirin 81 mg tablet,delayed 81 mg PO DAILY #30 tabs 10/11/20 release (Ecotrin Low Strength) meclizine 25 mg tablet 25 mg PO TID PRN dizziness #10 tabs 11/29/21 rosuvastatin 10 mg tablet 10 mg PO DAILY #30 tabs 01/16/22 cholecalciferol (vitamin D3) 125 125 mcg PO DAILY 90 days #90 caps 02/08/22 mcg (5,000 unit) capsule metoprolol succinate 50 mg 50 mg PO DAILY #90 tabs 06/22/22 tablet,extended release 24 hr (Toprol XL) Allergies Allergy/AdvReac Type Severity Reaction Status Date / Time No Known Allergies Allergy Verified 12/18/21 03:32 [No Known Allergies*] Review of Systems Review of Systems: Yes all other systems are reviewed and are negative [facility] Past Medical History [facility] Narrative: Social history: She lives at home with her . states that she does not smoke cigarettes, drink alcohol or use drugs. Medical History Essential hypertension History of CVA with residual deficit History of intracerebral hemorrhage without residual deficit Hyperlipidemia LDL goal <70 Postoperative atrial fibrillation Severe aortic stenosis Vitamin D deficiency Surgical History History of cardiac catheterization Status post aortic valve replacement Family History Family History Father Myocardial infarction Coronary artery disease Mother Coronary artery disease CVA (cerebral vascular accident) Mental health disorder Other No known health problems Social History Social History Housing: House Alcohol intake: never Patient Tobacco Use Status: Never used Tobacco e-Cigarette/Vaping Use: Never Used Second Hand Smoke Exposure: No Advance Directives: Yes Advance Directives Information Provided: Yes Advance Directives on File: No service: No Current occupational status: retired Physical Exam Vital Signs: Vital Signs: Last Vital Signs Temp 97.6 F 07/13/22 12:31 Pulse 82 07/13/22 13:36 Resp 18 07/13/22 13:36 BP 155/86 H 07/13/22 13:36 Pulse Ox 97 07/13/22 13:36 O2 Del Method 07/13/22 13:36 BMI result Body Mass Index 28.5 Const: General: cooperative and no acute distress Orientation/consciousness: oriented to person and oriented to place Limitations: no limitations HEENT: Head: Yes normal to inspection, Yes normocephalic and Yes atraumatic Ears: external ears normal General nose exam: Normal external nose present Face and sinus: Yes normal facial exam Mouth: Normal oral and palatal mucosa present Throat: Yes posterior oropharynx normal Eyes: General: appearance normal, both eyes and all related structures Pupils: Equal, round and reactive pupils present Neck: Neck: Yes normal visual inspection, Yes no lymphadenopathy, Yes trachea midline and Yes supple Chest: Chest palpation & inspection: normal inspection of the chest and normal palpation of entire chest wall Resp: Effort & Inspection: normal respiratory effort and able to speak in complete sentences Auscultation: clear to auscultation bilaterally Cardio: Rate: regular rate Rhythm: regular rhythm Heart sounds: S1 normal heart sound present, S2 normal heart sound present and no murmurs GI: Inspection: Yes normal to inspection Palpation (GI): Soft to palpation, nontender and no guarding Auscultation: normal bowel sounds : General: Yes no CVA tenderness Back/Spine/Pelvis: Back: no CVA tenderness Skin: General skin exam: no rashes or lesions noted Neuro: General: oriented to person and oriented to place Cranial nerves: Ye s CN's II-XII intact bilaterally and Yes Equal, round and reactive pupils present Cognition (Neuro): normal cognition Motor exam (neuro): strength not 5/5 throughout (Able to move LLE side to side minimally, unable to hold up against gravity) Sensory Exam: other (Diminished light touch left lower extremity compared to right lower extremi) Extrem: General: Yes normal to inspection Psych: Appearance: grossly normal Speech and movement: Normal speech and movement present Affect: normal affect Attitude: cooperative Thought process: Normal thought process present Thought content: Normal thought content present NIH Stroke Scale Internal: Initial- Upon Arrival Level of Consciousness: Alert Level of Consciousness Questions: Answers both questions correctly Level of Consciousness Commands: Performs both tasks correctly Best Gaze: Normal Visual: No visual loss Facial Palsy: Normal Motor Arm (Right): No drift Motor Arm (Left): No drift Motor Leg (Right): No drift Motor Leg (Left): No effort against gravity Limb Ataxia: Absent Sensory: Mild to moderate sensory loss Best Language: No aphasia Dysarthia: Normal Extinction and Inattention: No abnormality Score: 4 Course Course Course Narrative: 67-year-old female who presents emergency department for evaluation of left lower extremity weakness/heaviness/pins and needle sensation which occurred a round 09:00 hours (3 hours prior to arrival). Patient had similar symptoms 3 years prior when she had a stroke with this verbal bleed. Patient does take aspirin but is not on any other blood thinners. She does have a history of atrial fibrillation and an aortic valve replacement. The patient's physical examination did reveal weakness of the left lower extremity compared to the right with diminished light touch in the left lower extremity compared to the right. The patient was taken immediately to CT scan and the scan revealed a right frontal parietal 2.6 x 3.4 x 2.3 parenchymal bleed. This explains the patient's symptoms. I did discuss the patient's presentation with the neurologist at [facility], Dr. Mason who accepted the patient in transfer. The patient will be admitted to the [facility] neurologic intermediate unit. The neurologist recommended that the patient's blood pressure be kept approximately 160 mmHg. I also discussed the patient with the covering hospitalist. The patient will be transferred to [facility] as soon as a bed is available. 1355: Laboratory evaluation: CBC normal. PT/INR and PTT normal. CMP revealed an elevated glucose of 143. High sensitivity troponin I detectable but not elevated at 7.2. ETOH below detectable limits. COVID-19 negative. Chest x-ray, one view: Mild pulmonary vascular congestion, no infiltrates. Patient's systolic blood pressure readings have come down without treatment (13 15:SBP 168, 1333:SBP 155, 1338SBP 155) will continue to monitor patient's blood pressures. There had been no change in the patient's mental status, she is still oriented to person place. MDM - Weakness Lab Data Attestation: I reviewed the patient's lab results. Result diagrams: 07/13/22 12:35 07/13/22 12:35 Labs: Lab Results 07/13/22 07/13/22 07/13/22 Range/Units 12:22 12:22 12:35 WBC 5.2 (4.8-10.8) X10*3/uL RBC 4.81 (4.20-5.50) X10*6/uL Hgb 13.6 (12.0-16.0) g/dl Hct 41.9 (37.0-47.0) % MCV 87.1 (80.0-98.0) fL MCH 28.3 (27.0-33.0) pg MCHC 32.5 (31.0-35.0) g/dl RDW 13.2 (11.0-16.0) % Plt Count 274 (160-400) X10*3/uL MPV 9.8 (9.4-12.3) fL Immature Gran % (Auto) 0.4 (0.0-0.4) % Neut % (Auto) 69.0 (45-73) % Lymph % (Auto) 21.9 (20-40) % [place] % (Auto) 5.2 (2-11) % Eos % (Auto) 2.9 (0-4) % Baso % (Auto) 0.6 (0-2) % Lymph # (Auto) 1.1 L (1.2-4.9) X10*3/uL [place] # (Auto) 0.3 (0.1-1.2) X10*3/uL Eos # (Auto) 0.2 (0.0-0.4) X10*3/uL Baso # (Auto) 0.0 (0.0-0.2) X10*3/uL Abs Immat Gran (auto) 0.02 (0.00-0.03) X10*3/uL Absolute Neuts (auto) 3.6 (2.0-8.3) x10*3/uL Absolute Nucleated RBC 0.000 (0.0-0.012) X10*3/uL Nucleated RBC % (auto) 0.0 (0.0-0.2) /100WBC PT (10.0-13.1) SEC Whole Blood PT 12.6 (11.1-13.5) sec INR (0.9-1.1) Whole Blood INR 1.0 (0.9-1.1) APTT (26.0-36.4) SEC Sodium (135-145) mmol/L Potassium (3.3-5.1) mmol/L Chloride (96-108) mmol/L Carbon Dioxide (22-29) mmol/L Anion Gap (12-20) BUN (9-16) mg/dL Creatinine (0.5-1.4) mg/dL Estim Creat Clear Calc Estimated GFR POC Glucose 117 H (60-115) mg/dL Random Glucose (60-115) mg/dL Calcium (8.4-10.2) mg/dL Total Bilirubin (0.0-1.0) mg/dL Direct Bilirubin (0.0-0.5) mg/dL AST (5-31) U/L ALT (0-31) U/L Alkaline Phosphatase (39-117) U/L Total Creatine Kinase (26-140) U/L Troponin I High Sens (<3.5-17.0) ng/L Total Protein (6.5-8.0) g/dL Albumin (3.5-5.0) g/dL Ethyl Alcohol mg/dL COVID-19 (ROGERS) (Negative) COVID-19 Clin Com 07/13/22 07/13/22 07/13/22 Range/Units 12:35 12:35 12:35 WBC (4.8-10.8) X10*3/uL RBC (4.20-5.50) X10*6/uL Hgb (12.0-16.0) g/dl Hct (37.0-47.0) % MCV (80.0-98.0) fL MCH (27.0-33.0) pg MCHC (31.0-35.0) g/dl RDW (11.0-16.0) % Plt Count (160-400) X10*3/uL MPV (9.4-12.3) fL Immature Gran % (Auto) (0.0-0.4) % Neut % (Auto) (45-73) % Lymph % (Auto) (20-40) % [place] % (Auto) (2-11) % Eos % (Auto) (0-4) % Baso % (Auto) (0-2) % Lymph # (Auto) (1.2-4.9) X10*3/uL [place] # (Auto) (0.1-1.2) X10*3/uL Eos # (Auto) (0.0-0.4) X10*3/uL Baso # (Auto) (0.0-0.2) X10*3/uL Abs Immat Gran (auto) (0.00-0.03) X10*3/uL Absolute Neuts (auto) (2.0-8.3) x10*3/uL Absolute Nucleated RBC (0.0-0.012) X10*3/uL Nucleated RBC % (auto) (0.0-0.2) /100WBC PT 10.9 (10.0-13.1) SEC Whole Blood PT (11.1-13.5) sec INR 1.0 (0.9-1.1) Whole Blood INR (0.9-1.1) APTT 32.5 (26.0-36.4) SEC Sodium 141 (135-145) mmol/L Potassium 4.0 (3.3-5.1) mmol/L Chloride 105 (96-108) mmol/L Carbon Dioxide 23 (22-29) mmol/L Anion Gap 17 (12-20) BUN 12 (9-16) mg/dL Creatinine 0.80 (0.5-1.4) mg/dL Estim Creat Clear Calc 61.2 Estimated GFR > 60 POC Glucose (60-115) mg/dL Random Glucose 143 H (60-115) mg/dL Calcium 10.0 (8.4-10.2) mg/dL Total Bilirubin 0.4 (0.0-1.0) mg/dL Direct Bilirubin 0.2 (0.0-0.5) mg/dL AST 30 (5-31) U/L ALT 18 (0-31) U/L Alkaline Phosphatase 59 (39-117) U/L Total Creatine Kinase 84 (26-140) U/L Troponin I High Sens 7.2 (<3.5-17.0) ng/L Total Protein 7.3 (6.5-8.0) g/dL Albumin 4.4 (3.5-5.0) g/dL Ethyl Alcohol < 10 mg/dL COVID-19 (ROGERS) (Negative) COVID-19 Clin Com 07/13/22 Range/Units 13:16 WBC (4.8-10.8) X10*3/uL RBC (4.20-5.50) X10*6/uL Hgb (12.0-16.0) g/dl Hct (37.0-47.0) % MCV (80.0-98.0) fL MCH (27.0-33.0) pg MCHC (31.0-35.0) g/dl RDW (11.0-16.0) % Plt Count (160-400) X10*3/uL MPV (9.4-12.3) fL Immature Gran % (Auto) (0.0-0.4) % Neut % (Auto) (45-73) % Lymph % (Auto) (20-40) % [place] % (Auto) (2-11) % Eos % (Auto) (0-4) % Baso % (Auto) (0-2) % Lymph # (Auto) (1.2-4.9) X10*3/uL [place] # (Auto) (0.1-1.2) X10*3/uL Eos # (Auto) (0.0-0.4) X10*3/uL Baso # (Auto) (0.0-0.2) X10*3/uL Abs Immat Gran (auto) (0.00-0.03) X10*3/uL Absolute Neuts (auto) (2.0-8.3) x10*3/uL Absolute Nucleated RBC (0.0-0.012) X10*3/uL Nucleated RBC % (auto) (0.0-0.2) /100WBC PT (10.0-13.1) SEC Whole Blood PT (11.1-13.5) sec INR (0.9-1.1) Whole Blood INR (0.9-1.1) APTT (26.0-36.4) SEC Sodium (135-145) mmol/L Potassium (3.3-5.1) mmol/L Chloride (96-108) mmol/L Carbon Dioxide (22-29) mmol/L Anion Gap (12-20) BUN (9-16) mg/dL Creatinine (0.5-1.4) mg/dL Estim Creat Clear Calc Estimated GFR POC Glucose (60-115) mg/dL Random Glucose (60-115) mg/dL Calcium (8.4-10.2) mg/dL Total Bilirubin (0.0-1.0) mg/dL Direct Bilirubin (0.0-0.5) mg/dL AST (5-31) U/L ALT (0-31) U/L Alkaline Phosphatase (39-117) U/L Total Creatine Kinase (26-140) U/L Troponin I High Sens (<3.5-17.0) ng/L Total Protein (6.5-8.0) g/dL Albumin (3.5-5.0) g/dL Ethyl Alcohol mg/dL COVID-19 (ROGERS) Negative (Negative) COVID-19 Clin Com See Note ECG Data Attestation: I personally reviewed and interpreted this ECG as follows: Interpretation: 1254: Sinus rhythm with a rate of 79, first-degree AV block with SC interval of 230 milliseconds, normal QRS duration QTC duration, no ST segment elevation, no ST segment depression, no PACs, no PVCs, no significant T-wave abnormalities, there is artifact in the limb leads. Compared to EKG dated 11/29/2021 first- degree AV block is old and there are no other acute changes. Critical Care Time Critical Care Time Critical Care Time: Yes Total Critical Care Time: 70 Attestation: Critical Care: The patient was critically ill with a high probability of imminent or life threatening deterioration. I spent greater than 30 minutes of discontinuous time evaluating the patient,delivering critical care at the bedside, discussing and evaluating pertinent data with consultants. Critical care time does not include time spent performing separately billable procedures or teaching. Total time spent performing critical care was 70 minutes. Discharge Plan Discharge Clinical Impression: Cerebral parenchymal hemorrhage Qualifiers: Intracerebral hemorrhage etiology: nontraumatic Cerebral hemorrhage location: unspecified cerebral location Laterality: right Qualified Code(s): I61.9 - Nontraumatic intracerebral hemorrhage, unspecified Stroke Qualifiers: Laterality of affected vessel: right Patient Disposition: [facility] Transfer Details: [facility] neurologic intermediate unit Prescriptions: No Action rosuvastatin 10 mg tablet 10 mg PO DAILY Qty: 30 5RF cholecalciferol (vitamin D3) 125 mcg (5,000 unit) capsule 125 mcg PO DAILY 90 Days Qty: 90 1RF metoprolol succinate [Toprol XL] 50 mg tablet extended release 24 hr 50 mg PO DAILY Qty: 90 1RF meclizine 25 mg tablet 25 mg PO TID PRN (Reason: dizziness) Qty: 10 0RF aspirin [Ecotrin Low Strength] 81 mg tablet,delayed release (DR/EC) 81 mg PO DAILY Qty: 30 0RF
[2022-07-13 12:40] LABS: MANUAL DIFF FLAG NO
[2022-07-13 12:43] LABS: Basophils Percent Auto 0.6 % (0-2); Eosinophils Absolute Auto 0.2 X10*3/uL (0.0-0.4); Eosinophils Percent Auto 2.9 % (0-4); Hematocrit 41.9 % (37.0-47.0); Hemoglobin 13.6 g/dl (12.0-16.0); Imm Gran Abs Auto 0.02 X10*3/uL (0.00-0.03); Imm Gran Pct Auto 0.4 % (0.0-0.4); Lymphocytes Absolute Auto 1.1 X10*3/uL (1.2-4.9); Lymphocytes Percent Auto 21.9 % (20-40); Mean Corpuscular HGB Conc 32.5 g/dl (31.0-35.0); Mean Corpuscular Hemoglobin 28.3 pg (27.0-33.0); Mean Corpuscular Volume 87.1 fL (80.0-98.0); Mean Platelet Volume 9.8 fL (9.4-12.3); Monocytes Absolute Auto 0.3 X10*3/uL (0.1-1.2); Monocytes Percent Auto 5.2 % (2-11); Neutrophils Absolute Auto 3.6 x10*3/uL (2.0-8.3); Platelet Count 274 X10*3/uL (160-400); Red Blood Count 4.81 X10*6/uL (4.20-5.50); Red Cell Distribution Width 13.2 % (11.0-16.0); White Blood Count 5.2 X10*3/uL (4.8-10.8)
--- NOTE | 2022-07-13 12:49 | PC.NURSE ---
2 IVs placed and labs obtained. Triage also competed at this time. Report given to primary RN
[2022-07-13 13:02] LABS: Prothrombin Time 10.9 SEC (10.0-13.1)
[2022-07-13 13:03] LABS: Troponin-I High Sensitivity 7.2 ng/L (<3.5-17.0)
[2022-07-13 13:05] LABS: Partial Thromboplastin Time 32.5 SEC (26.0-36.4)
--- NOTE | 2022-07-13 13:11 | PC.NURSE ---
First contact with patient. Answering questions appropriately, however, slow to answer. A+O x 3. [place], but feels as if left leg is heavy . PERRL. Speech clear but slow. MD at bedside to speak with patient and . [place] [facility] [place] MD aware of elevated BP. Wishes to keep BP btween 160/180 systolic. ecg done. on continuous monitor with BP every 5 min.
[2022-07-13 13:15] VITALS: BP 168/96; PULSE 79; RESP 20; O2SAT 97
[2022-07-13 13:17] LABS: Alanine Aminotransferase 18 U/L (0-31); Albumin Level 4.4 g/dL (3.5-5.0); Alkaline Phosphatase 59 U/L (39-117); Anion Gap 17 (12-20); Aspartate Amino Transferase 30 U/L (5-31); Bilirubin Direct 0.2 mg/dL (0.0-0.5); Bilirubin Total 0.4 mg/dL (0.0-1.0); Blood Urea Nitrogen 12 mg/dL (9-16); Carbon Dioxide 23 mmol/L (22-29); Chloride 105 mmol/L (96-108); Creatinine Clr Calc Pharmacy 61.2; Estimated Glomerular Filt Rate > 60; Ethanol < 10 mg/dL; Glucose Random 143 mg/dL (60-115); Sodium 141 mmol/L (135-145); Total Protein 7.3 g/dL (6.5-8.0)
[2022-07-13 13:26] LABS: Stroke Lab Use COMPLETE
[2022-07-13 13:36] VITALS: BP 155/86; PULSE 82; RESP 18; O2SAT 97
[2022-07-13 13:46] LABS: COVID-19 Test Negative (Negative); IDNOW Serial# 16C4AD1C
--- NOTE | 2022-07-13 14:02 | MHC.STROKE ---
DRIVEN IN BY ARRIVED AT 1219, SEEN BY PROVIDER AND STROKE PROTOCOL ACTIVATED DIRECT TO CT 1222, + HEMORRHAGE. FAILED SWALLOW, REMAIN NPO. [place] [facility] [place] PRIOR HEMORRHAGIC STROKE 10/03/19. DR. JIMÉNEZ COORDINATING TRANSFER TO [facility].
[2022-07-13 14:09] VITALS: BP 156/83; PULSE 79; RESP 20; O2SAT 98
--- NOTE | 2022-07-13 14:23 | PC.NURSE ---
Report called [place] [facility] [place] Spoke with Brian in Neuro ICU. Transport booked by [facility]. Awaiting arrival. Charge nurse aware of transfer request.
== END 2022-07-13 14:59 | disposition short-term general hospital (02) ==
PROVIDERS: Emergency Provider Emergency Medicine Emergency Medical Services; PCP Internal Medicine
DX: I61.9 Nontraumatic intracerebral hemorrhage, unspecified (principal); G81.94 Hemiplegia, unspecified affecting left nondominant side; E78.5 Hyperlipidemia, unspecified; I10 Essential (primary) hypertension; Z20.822 Contact with and (suspected) exposure to COVID-19; Z95.2 Presence of prosthetic heart valve; Z86.73 Personal history of transient ischemic attack (TIA), and cerebral infarction without residual deficits; Z79.02 Long term (current) use of antithrombotics/antiplatelets; Z79.899 Other long term (current) drug therapy; Z79.82 Long term (current) use of aspirin
CPT/HCPCS: 36415; 70450; 71045; 80048; 80076; 82077; 82550; 82947; 84484; 85025; 85610; 85730; 87635; 93005; 99285

== ENCOUNTER 2022-09-27 15:27 | Emergency (ER) | payer MEDICAID, SELFPAY ==
--- NOTE | ~2022-09-27 | CT_ITS ---
CT HEAD WITHOUT IV CONTRAST CLINICAL INFORMATION: Altered mental status. COMPARISON: Head CT 07/13/2022. TECHNIQUE: Contiguous axial imaging was performed from the skull base to vertex without intravenous administration of contrast. This CT examination was performed using dose optimization techniques as appropriate, variously including the following: *Automated exposure control *Adjustment of mA and/or kV according to patient size (this includes techniques or standardized protocols for targeted exams where dose is matched to indication/reason for exam; i.e. extremities or head) *Use of iterative reconstruction technique FINDINGS: Chronic encephalomalacia and gliosis within the high right frontal lobe at the site of a previously seen parenchymal hemorrhage which has resolved. There is a chronic right DILLON territory infarct as well. There is global cerebral volume loss and there is chronic microangiopathy. There is no intracranial hemorrhage, hydrocephalus, extra-axial surface collection, midline shift, or other herniation pattern. Reyes to white matter differentiation is diffusely maintained without evidence of an evolved acute territorial infarct. The basilar cisterns are preserved. No significant soft tissue abnormality. No acute osseous abnormality. The paranasal sinuses and the mastoid air cells are well aerated. CT/CT head/brain wo IV con IMPRESSION: No acute intracranial abnormality. Chronic encephalomalacia and gliosis within the high right frontal lobe at the site of a previously seen parenchymal hemorrhage which has resolved. There is a chronic right DILLON territory infarct as well. There is global cerebral volume loss and there is chronic microangiopathy.
--- NOTE | ~2022-09-27 | XR_ITS ---
EXAMINATION: XR CHEST CLINICAL INFORMATION: Altered mental status. COMPARISON: Chest radiograph 07/13/2022. TECHNIQUE: Frontal view of the chest was obtained. FINDINGS: Stable prominence of the cardiomediastinal silhouette. Cardiac valve and sternal wires are noted. No focal airspace opacity, pleural effusion or pneumothorax. No acute osseous abnormalities. XR/XR chest 1V IMPRESSION: 1. No acute cardiopulmonary findings. 2. Stable prominence of the cardiomediastinal silhouette.
[2022-09-27 15:44] VITALS: BP 124/76; PULSE 76; O2SAT 94; BMI 26.1
[2022-09-27 16:18] VITALS: BP 126/81; PULSE 75; RESP 14; TEMP 37; O2SAT 98
--- NOTE | 2022-09-27 16:25 | ED.GENADULT ---
HPI - General Adult General Chief complaint: General Medical Stated complaint: Failure to Thrive Time Seen by Provider: 09/27/22 15:59 Source: RN notes reviewed Limitations: altered mental status History of Present Illness HPI narrative: This is a 67-year-old female with a history of hemorrhagic CVA x2, the last 1 few months ago. She also has hypertension, aortic valve replacement, seizures. The patient per a visiting nurse has not been taking food or fluids well recently and was sent in for ?failure to thrive?. The nurse doing that the patient was not safe at home. Patient herself is confused as to why she is here. She states that she came in a van. She notes that she was in [place]. She denies any physical complaints such as headache, chest pain, shortness of breath, abdominal pain, nausea vomiting, swelling in her extremities. Related Data Home Medications Medication Instructions Recorded Confirmed metoprolol tartrate 25 mg tablet 25 mg PO DAILY 09/17/22 09/17/22 Previous Rx's Medication Instructions Recorded aspirin 81 mg tablet,delayed 81 mg PO DAILY #30 tabs 10/11/20 release (Ecotrin Low Strength) cholecalciferol (vitamin D3) 125 125 mcg PO DAILY 90 days #90 caps 02/08/22 mcg (5,000 unit) capsule levetiracetam 250 mg tablet 750 mg PO BID 30 days #180 tabs 09/10/22 (Keppra) rosuvastatin 10 mg tablet 10 mg PO DAILY #30 tabs 09/17/22 dronabinol 5 mg capsule 5 mg PO BID #60 caps 09/22/22 mirtazapine 7.5 mg tablet 7.5 mg PO BEDTIME #30 tabs 09/22/22 Allergies Allergy/AdvReac Type Severity Reaction Status Date / Time No Known Allergies Allergy Verified 09/17/22 09:36 [No Known Allergies*] Review of Systems Review of Systems: Questionable reliability Yes all other systems are reviewed and are negative Constitutional: Constitutional: Reports as per HPI and Denies fever(s) Eyes: Eyes: Reports as per HPI and Reports no additional eye complaints ENT: Reports system reviewed and no additional complaints, except as documented, Reports as per HPI, Denies nasal congestion, Denies nasal discharge and Denies sore throat Cardiovascular: Cardiovascular: Reports as per HPI, Denies chest pain and Denies dyspnea Respiratory: Respiratory: Reports as per HPI, Denies cough and Denies dyspnea Gastrointestinal: Gastrointestinal: Reports as per HPI, Denies abdominal pain, Denies diarrhea and Denies vomiting Genitourinary: Genitourinary: Reports as per HPI, Denies hematuria, Denies urinary frequency and Denies dysuria Musculoskeletal: Musculoskeletal: Reports no additional musculoskeletal complaints and Denies numbness Integumentary/Breasts: Skin/Breast: Reports as per HPI and Denies rash Neurologic: Reports as per HPI, Denies focal weakness and Denies numbness Psychiatric: Psychiatric: Reports no additional psychiatric complaints and Reports as per HPI Endocrine: Endocrine: Reports no additional endocrine complaints and Reports as per HPI Hematologic/Lymphatic: Hematologic/Lymphatic: Reports no additional hematologic/lymphatic complaints, Reports as per HPI and Reports other (No peripheral edema) [facility] Past Medical History Medical History (Updated 09/28/22 @ 02:18 by Karthik Portillo MD) Essential hypertension History of CVA with residual deficit History of intracerebral hemorrhage without residual deficit Hx of intracranial hemorrhage Hyperlipidemia LDL goal <70 Poor appetite Postoperative atrial fibrillation Seizures Severe aortic stenosis Spastic hemiparesis of left dominant side as late effect of cerebrovascular disease Vitamin D deficiency Surgical History History of cardiac catheterization Status post aortic valve replacement Family History Family History Father Myocardial infarction Coronary artery disease Mother Coronary artery disease CVA (cerebral vascular accident) Mental health disorder Other No known health problems Social History Social History Housing: House Alcohol intake: never Patient Tobacco Use Status: Never used Tobacco Smoked in Last 30 Days: No e-Cigarette/Vaping Use: Never Used Second Hand Smoke Exposure: No Use of substances other than those prescribed or required for medical reasons: No Advance Directives: Yes Advance Directives on File: Yes Advance Directives Date on File: 09/17/22 service: No Current occupational status: retired Cognitive needs: Yes Hearing needs: Yes Vision needs: Yes Physical Exam ED Vital Signs: Vital Signs - 24 hr 09/27/22 16:18 09/27/22 18:00 09/27/22 20:00 Temperature 98.6 F 98.2 F 97.8 F Pulse Rate 75 74 74 Respiratory Rate 14 16 16 Blood Pressure 126/81 136/70 127/77 Pulse Oximetry 98 98 98 Oxygen Delivery Method Room Air Room Air Room Air 09/27/22 22:00 Temperature 97.6 F Pulse Rate 73 Respiratory Rate 16 Blood Pressure 130/87 Pulse Oximetry 97 Oxygen Delivery Method Room Air BMI result Body Mass Index 26.1 Const General: no acute distress Orientation/consciousness: oriented to person HENMT Head: Yes normal to inspection General nose exam: Normal external nose present Mouth: moist mucous membranes Throat: Yes posterior oropharynx normal, Yes tonsils normal and Yes uvula midline Eyes Eyelids: Yes eyelids normal Conjunctivae: conjunctivae normal Pupils: Equal, round and reactive pupils present Neck Neck: Yes supple Resp Effort & Inspection: normal respiratory effort Auscultation: clear to auscultation bilaterally Cardio Rate: regular rate Rhythm: regular rhythm Heart sounds: S1 normal heart sound present, S2 normal heart sound present, no gallops, no murmurs and no rubs GI Inspection: No distended Palpation (GI): Soft to palpation and nontender Auscultation: normal bowel sounds Skin General skin exam: other (Warm and dry) Neuro Other: Speech clear, no aphasia or dysarthria General: oriented to person and CN's II-XI intact bilaterally Cranial nerves: Yes Equal, round and reactive pupils present Extrem General: Yes no pedal edema Psych Affect: normal affect Attitude: cooperative Medications Administered Discontinued Medications Generic Name Dose Route Start Last Admin Trade Name Freq PRN Reason Stop Dose Admin Sodium Chloride 500 mls @ 500 mls/hr 09/27/22 20:45 09/27/22 23:36 Ns IV 09/27/22 21:44 Infused .Q1H FERN Infusion Medical Decision Making MDM Narrative Medical decision making narrative: Case management was consulted and contacted the visiting nurse who stated that the patient's home was in disarray and that the patient could not safely live there. Patient's boyfriend apparently has been recently in the hospital and case management did speak to him. He apparently is a healthcare proxy but appears not to be confident himself. Patient clearly cannot take care of herself due to her level of confusion and neurologic deficits, and will have PT/OT evaluation in the morning, and evaluation for jail home placement. Medical workup here was unremarkable including CT of the brain, chest x-ray, CBC, chemistry panel, urinalysis. The patient did have a mild elevation of her BUN relative to creatinine and was given normal saline 1 L IV bolus Lab Data Lab results reviewed: Yes I reviewed the patient's lab results. Result diagrams: 09/27/22 16:48 09/27/22 16:48 Labs: Lab Results 09/27/22 09/27/22 09/28/22 Range/Units 16:48 16:48 01:52 WBC 6.5 (4.8-10.8) X10*3/uL RBC 4.71 (4.20-5.50) X10*6/uL Hgb 13.7 (12.0-16.0) g/dl Hct 41.7 (37.0-47.0) % MCV 88.5 (80.0-98.0) fL MCH 29.1 (27.0-33.0) pg MCHC 32.9 (31.0-35.0) g/dl RDW 13.4 (11.0-16.0) % Plt Count 312 (160-400) X10*3/uL MPV 10.4 (9.4-12.3) fL Immature Gran % (Auto) 0.2 (0.0-0.4) % Neut % (Auto) 58.0 (45-73) % Lymph % (Auto) 29.5 (20-40) % [place] % (Auto) 7.5 (2-11) % Eos % (Auto) 4.3 H (0-4) % Baso % (Auto) 0.5 (0-2) % Lymph # (Auto) 1.9 (1.2-4.9) X10*3/uL [place] # (Auto) 0.5 (0.1-1.2) X10*3/uL Eos # (Auto) 0.3 (0.0-0.4) X10*3/uL Baso # (Auto) 0.0 (0.0-0.2) X10*3/uL Abs Immat Gran (auto) 0.01 (0.00-0.03) X10*3/uL Absolute Neuts (auto) 3.8 (2.0-8.3) x10*3/uL Absolute Nucleated RBC 0.000 (0.0-0.012) X10*3/uL Nucleated RBC % (auto) 0.0 (0.0-0.2) /100WBC Sodium 139 (135-145) mmol/L Potassium 4.3 (3.3-5.1) mmol/L Chloride 104 (96-108) mmol/L Carbon Dioxide 29 (22-29) mmol/L Anion Gap 10 L (12-20) BUN 21 H (9-16) mg/dL Creatinine 0.71 (0.5-1.4) mg/dL Estim Creat Clear Calc 60.9 Estimated GFR > 60 Random Glucose 101 (60-115) mg/dL Calcium 10.3 H (8.4-10.2) mg/dL Total Bilirubin 0.5 (0.0-1.0) mg/dL AST 17 (5-31) U/L ALT 10 (0-31) U/L Alkaline Phosphatase 51 (39-117) U/L Total Protein 6.6 (6.5-8.0) g/dL Albumin 4.2 (3.5-5.0) g/dL TSH 4.65 H (0.32-4.0) uIU/mL Free T4 1.07 (0.71-1.85) ng/dL Urine Color Yellow Urine Appearance Clear Urine pH 6.5 (5.0-9.0) Ur Specific [place] 1.020 (1.005-1.025) Urine Protein Negative (Neg-Trace) mg/dL Urine Glucose (UA) Negative (Negative) mg/dL Urine Ketones Trace (Negative) mg/dL Urine Blood Negative (Negative) Urine Nitrite Negative (Negative) Ur Leukocyte Esterase Trace H (Negative) Urine RBC 3-5 H (0-2) /HPF Urine WBC 0-5 (0-5) /HPF Ur Squamous Epith Cells 0-2 (0-2) /HPF Urine Bacteria None Seen (None Seen) Hyaline Casts 0-2 (0-2) /LPF Imaging Data Chest x-ray: Radiologist's impression: IMPRESSION: 1.? No acute cardiopulmonary findings. 2.? Stable prominence of the cardiomediastinal silhouette. CT scan - head: Radiologist's impression: IMPRESSION: No acute intracranial abnormality. Chronic encephalomalacia and gliosis within the high right frontal lobe at the site of a previously seen parenchymal hemorrhage which has resolved. There is a chronic right DILLON territory infarct as well. There is global cerebral volume loss and there is chronic microangiopathy. Discharge Plan Discharge Clinical Impression: Adult failure to thrive, Dementia Patient Disposition: Still a Patient Prescriptions: No Action cholecalciferol (vitamin D3) 125 mcg (5,000 unit) capsule 125 mcg PO DAILY 90 Days Qty: 90 1RF levetiracetam [Keppra] 250 mg tablet 750 mg PO BID 30 Days Qty: 180 0RF dronabinol 5 mg capsule 5 mg PO BID Qty: 60 0RF Rx Instructions: administer before lunch and evening meal/dinner mirtazapine 7.5 mg tablet 7.5 mg PO BEDTIME Qty: 30 0RF metoprolol tartrate 25 mg tablet 25 mg PO DAILY rosuvastatin 10 mg tablet 10 mg PO DAILY Qty: 30 5RF aspirin [Ecotrin Low Strength] 81 mg tablet,delayed release (DR/EC) 81 mg PO DAILY Qty: 30 0RF
[2022-09-27 16:52] LABS: MANUAL DIFF FLAG NO
[2022-09-27 16:53] LABS: Basophils Percent Auto 0.5 % (0-2); Eosinophils Absolute Auto 0.3 X10*3/uL (0.0-0.4); Eosinophils Percent Auto 4.3 % (0-4); Hematocrit 41.7 % (37.0-47.0); Hemoglobin 13.7 g/dl (12.0-16.0); Imm Gran Abs Auto 0.01 X10*3/uL (0.00-0.03); Imm Gran Pct Auto 0.2 % (0.0-0.4); Lymphocytes Absolute Auto 1.9 X10*3/uL (1.2-4.9); Lymphocytes Percent Auto 29.5 % (20-40); Mean Corpuscular HGB Conc 32.9 g/dl (31.0-35.0); Mean Corpuscular Hemoglobin 29.1 pg (27.0-33.0); Mean Corpuscular Volume 88.5 fL (80.0-98.0); Mean Platelet Volume 10.4 fL (9.4-12.3); Monocytes Absolute Auto 0.5 X10*3/uL (0.1-1.2); Monocytes Percent Auto 7.5 % (2-11); Neutrophils Absolute Auto 3.8 x10*3/uL (2.0-8.3); Platelet Count 312 X10*3/uL (160-400); Red Blood Count 4.71 X10*6/uL (4.20-5.50); Red Cell Distribution Width 13.4 % (11.0-16.0); White Blood Count 6.5 X10*3/uL (4.8-10.8)
[2022-09-27 17:30] LABS: Alanine Aminotransferase 10 U/L (0-31); Albumin Level 4.2 g/dL (3.5-5.0); Alkaline Phosphatase 51 U/L (39-117); Anion Gap 10 (12-20); Aspartate Amino Transferase 17 U/L (5-31); Bilirubin Total 0.5 mg/dL (0.0-1.0); Blood Urea Nitrogen 21 mg/dL (9-16); Calcium 10.3 mg/dL (8.4-10.2); Carbon Dioxide 29 mmol/L (22-29); Chloride 104 mmol/L (96-108); Creatinine Clr Calc Pharmacy 60.9; Estimated Glomerular Filt Rate > 60; Glucose Random 101 mg/dL (60-115); Potassium 4.3 mmol/L (3.3-5.1); Sodium 139 mmol/L (135-145); TSH reflex Free T4 4.65 uIU/mL (0.32-4.0); Total Protein 6.6 g/dL (6.5-8.0)
[2022-09-27 18:00] VITALS: BP 136/70; PULSE 74; RESP 16; TEMP 36.8; O2SAT 98
[2022-09-27 18:55] LABS: Free T4 (Free Thyroxine) 1.07 ng/dL (0.71-1.85)
[2022-09-27 20:00] VITALS: BP 127/77; PULSE 74; RESP 16; TEMP 36.6; O2SAT 98
[2022-09-27 22:00] VITALS: BP 130/87; PULSE 73; RESP 16; TEMP 36.4; O2SAT 97
[2022-09-27] MEDS: 0.9 % Sodium Chloride 500 ML IV (22:36)
--- NOTE | 2022-09-27 22:59 | MHC.CM.ED ---
CM attempted to meet with patient. Pt quite confused. Not sure where she is or why she is here. Attempted to speak with HCP/partner, poor receptionist clerk. Will try again later. Per RN, EMS has concerns about living situation. Stated house unlivable. Hoarding. Filed with Elder services. CM spoke with EMS, quite concerned. Stated home was covered with stuff everywhere. States home was cold. [employer] van in driveway was full of stuff . EMS also left message with Officer Korey Goyal at [facility] elderly officer. CM called HCP #2 Joie Tip ([phone]). She tells CM that patient is not safe at home and her brother cannot care for her, but thinks he can. States house is unlivable. Hoarding and dirty. States patient has fallen and has left the stove on in the past. Has concerns over patient returning to home. Will call her brother. CM then called Visiting nurse Marionpatsy from [facility] ([phone]). Migdalia has concerns about patient living safely at home. States she believes that Partner, Pete Albarran, loves her and wants to care for her, but cannot. Feels he may have some cognitive impairment. Was just D/C from [facility] 09/27 after fall. Migdalia feels house in unlivable. Hoarding and dirty. States patient is at risk for falls. Pt is confused. Vera states patient has poor po intake. CM finally reached, Pete Arzolazewski ([phone]). According to Pete, the house is a bit cluttered and he does think he can safely care for her. States she is confused and needs 24/7 care, but that he can do it. Feels patient just needs to eat better. Wants her to come home. Explained to Pete that concerns have been made regarding condition of living situation. Aware that Elder at Risk has been filed and that Officer Korey Goyal was contacted by EMS. Also aware that visiting nurse is also very concerned about living situation and does not feel patient should go home. Pete spoke about patient needing him and really didn't seem to understand seriousness of allegations made about condition of home and concern that patient cannot go home. Agreeable to PT assessment. Doesn't feel that PT will be very helpful. Pete will be in tomorrow, 09/28 to see the patient. Message left with Officer Korey Goyal regarding concerns about living situation and Pete's denial that the house is unlivable. Will file with Elder protective services in am. Local referrals made for STR. CM will follow for discharge planning.
--- NOTE | 2022-09-28 00:30 | PC.NURSE ---
0000 rounding done ,pt laying in bed quietly watching television ,sitter at bedside ,call lieberman within reach
--- NOTE | 2022-09-28 01:31 | PC.NURSE ---
pt stated she has to pee ,this pct took pt to bathroom ,once we got to the bathroom ,pt sat on toilet for a few minutes ,than said she cant pee ,got pt back to bed ,this pct bladder scan pt it was 541 ml ,ave dc was notified of bladder scan result .
[2022-09-28 02:02] LABS: Appearance Urine Clear; Color Urine Yellow; Glucose Urine UA Negative (Negative); Leukocyte Esterase Urine Trace (Negative); Nitrite Urine Negative (Negative); PH 6.5 (5.0-9.0); UMIC TRIGGER UACC YES; Urine Blood Negative (Negative); Urine Ketones Trace mg/dL (Negative); Urine Protein Negative (Neg-Trace)
[2022-09-28 02:06] LABS: Bacteria Urine None Seen (None Seen); Hyaline Casts Urine 0-2 /LPF (0-2); Squamous Epithelial Cell Urine 0-2 /HPF (0-2); WBC Urine 0-5 /HPF (0-5)
--- NOTE | 2022-09-28 02:30 | PC.NURSE ---
0200 rounding done ,pt watching television ,call lieberman within reach .
--- NOTE | 2022-09-28 03:24 | PC.NURSE ---
MD aware of pts 540cc urine on bladder scan. Straight cath verbal order per Dr. Portillo. Pt straight cath with 14F and 350cc of clear yellow urine output. Procedure tolerated well by pt with no issues or concerns.
--- NOTE | 2022-09-28 04:04 | PC.NURSE ---
0400 rounding done ,pt sleeping ,call lieberman within reach .
--- NOTE | 2022-09-28 05:21 | PC.NURSE ---
Med req completed.
[2022-09-28 06:00] VITALS: BP 131/91; PULSE 65; RESP 18; TEMP 36.8; O2SAT 98
[2022-09-28 09:02] VITALS: BP 131/91; PULSE 65; O2SAT 98
[2022-09-28 10:41] LABS: COVID-19 Test Negative (Negative); IDNOW Serial# BCCEAD1C
[2022-09-28] MEDS: levETIRAcetam 250 MG TABLET 750 MG PO (11:02)
[2022-09-28] MEDS: Metoprolol Tartrate 25 MG TABLET PO (11:03)
--- NOTE | 2022-09-28 12:44 | MHC.CM.ED ---
Patient remains in ER. Physical therapy eval completed. Short term rehab is recommended. Met with patient and sig other, Pete in regards to discharge planning. Patient has been to [facility] in the past. Referral sent to all acute rehab facilities. No beds were able to be offered for acute rehab. At this time, [facility] is willing to offer a bed. Pete doesn't want patient to return to [facility] because he didn't feel like the care was good at that facility. Augustine Rizo is still reviewing. Continue to monitor for d/c needs.
--- NOTE | 2022-09-28 15:02 | MHC.CM.ED ---
[facility] is able to offer a bed. MDS completed and faxed to [facility]. Also sent to Erica at [facility]. Stalin JENNINGS booked for 630pm. med [facility] with chart. Patient, Aubree Freeman RN and Birgit GLASGOW aware. Continue to monitor for d/c needs.
[2022-09-28 15:55] VITALS: BP 148/90; PULSE 77; O2SAT 97
== END 2022-09-28 20:35 ==
PROVIDERS: Nurse Practitioner Family; Emergency Provider Emergency Medicine; PCP Family Medicine
DX: F03.90 Unspecified dementia, unspecified severity, without behavioral disturbance, psychotic disturbance, mood disturbance, and anxiety (principal); R62.7 Adult failure to thrive; Z68.26 Body mass index [BMI] 26.0-26.9, adult; R33.9 Retention of urine, unspecified; Z20.822 Contact with and (suspected) exposure to COVID-19; I10 Essential (primary) hypertension; E78.5 Hyperlipidemia, unspecified; I69.352 Hemiplegia and hemiparesis following cerebral infarction affecting left dominant side; Z95.2 Presence of prosthetic heart valve; Z79.02 Long term (current) use of antithrombotics/antiplatelets; Z79.82 Long term (current) use of aspirin; Z79.899 Other long term (current) drug therapy
CPT/HCPCS: 36415; 51702; 51798; 70450; 71045; 80053; 81001; 81003; 84439; 84443; 85025; 87635; 96360; 97162; 99285

== ENCOUNTER 2022-11-08 09:04 | Outpatient (AMB) | payer MEDICAID, SELFPAY ==
--- NOTE | 2022-11-08 09:10 | MHC.PC.OV ---
Vital Signs 11/08/22 09:11 Height 5 ft Weight 132 lb BMI 25.7 BP 118/80 Blood Pressure Location Lt brachial Position Sitting Pulse 97 Pulse Source Pulse Oximeter Pulse Oximetry (%) 97 Oxygen Delivery Method Room Air Intake Visit Reasons: [facility]/10-02-22/11-02-22 Intake Note: Pt is here today Rehap f/u Allergies No Known Allergies [No Known Allergies*] Allergy (Verified 11/08/22 09:29) Medication List - Last Reconciled 11/08/22 by Sadia Marquez MD levetiracetam (Keppra) 750 mg (3 x 250 mg) PO BID 30 days metoprolol tartrate 25 mg PO DAILY mirtazapine 7.5 mg PO BEDTIME rosuvastatin 10 mg PO DAILY trazodone 50 mg PO BEDTIME PRN Tobacco use date assessed: 11/08/22 Fall risk assessment: 2 + Falls in past year Last assessed Fall Risk: 11/08/22 HPI [facility]/10-02-22/11-02-22 HPI Details 67-year-old female with a history of hemorrhagic CVA x2, the last 1 few months ago.? She also has hypertension, aortic valve replacement, seizures here today for follow-up after discharge from [facility] where she was transferred from [facility], last seen at the ER, due to failure to thrive., with very poor po intake . ? [facility] Medical History Essential hypertension History of CVA with residual deficit History of intracerebral hemorrhage without residual deficit Hx of intracranial hemorrhage Hyperlipidemia LDL goal <70 Poor appetite Postoperative atrial fibrillation Seizures Severe aortic stenosis Spastic hemiparesis of left dominant side as late effect of cerebrovascular disease Vitamin D deficiency Surgical History History of cardiac catheterization Status post aortic valve replacement Family History Father Myocardial infarction Coronary artery disease Mother Coronary artery disease CVA (cerebral vascular accident) Mental health disorder Other No known health problems Social History Housing: House Alcohol intake: never Patient Tobacco Use Status: Never used Tobacco e-Cigarette/Vaping Use: Never Used Second Hand Smoke Exposure: No Advance Directives Date on File: 09/17/22 service: No Current occupational status: retired Cognitive needs: Yes Hearing needs: Yes Vision needs: Yes Questionnaire PHQ-9 Over the last 2 weeks, how often have you been bothered by any of the following problems? 1. Little interest or pleasure in doing things: nearly every day 2. Feeling down, depressed, or hopeless: several days 3. Trouble falling or staying asleep, or sleeping too much: not at all 4. Feeling tired or having little energy: not at all 5. Poor appetite or overeating: nearly every day 6. Feeling bad about yourself - or that you are a failure or have let yourself or your family down: not at all 7. Trouble concentrating on things, such as reading the newspaper or watching television: nearly every day 8. Moving or speaking so slowly that other people could have noticed. Or the opposite - being so fidgety or restless that you have been moving around a lot more than usual: more than half the days 9. Thoughts that you would be better off or of hurting yourself in some way: not at all Total score: 12 Source: Developed by Drs. Amrit Reyes, Yulissa Lucero, Karel Tamez and colleagues, with an educational ronald from [employer]. Thrive Questionnaire Date Thrive assessed: 11/08/22 I am a: Parent/Caregiver What is your living situation today?: I have a steady place to live Within the past 12 months, did the food you bought not last and you didn't have the money to get more?: Never true Within the past 12 months, did you worry whether your food would run out before you got money to buy more?: Never true Do you have trouble paying for medicines?: No Do you have trouble getting transportation to medical appointments?: No Do you have trouble paying your heating and electricity bill?: No Do you have trouble taking care of your child, family member or friend?: No Do you have trouble with day-to-day activities such as bathing, preparing meals, shopping, managing finances, etc.?: No Are you currently unemployed and looking for a job?: No Are you interested in more education?: No BRE-7 AMB Questionnaire BRE-7 Date BRE - 7 assessed: 11/08/22 Feeling nervous, anxious, or on edge: 1 = Several days Not being able to stop or control worryin = Several days Worrying too much about different things: 1 = Several days Trouble relaxin = Several days Being so restless that it is hard to sit still: 1 = Several days Becoming easily annoyed or irritable: 1 = Several days Feeling afraid as if something awful might happen: 0 = Not at all Total BRE-7 score (0-4 normal; 5-9 mild; 10-14 moderate; 15-21 severe): 6 Source: Developed by Drs. Amrit Reyes, Yulissa Lucero, Karel Tamez and colleagues, with an educational ronald from [employer]. Physical exam (Primary Care) Vital Signs: Last Vital Signs Pulse 97 11/08/22 09:11 BP 118/80 11/08/22 09:11 Pulse Ox 97 11/08/22 09:11 Oxygen Delivery Method Room Air 11/08/22 09:11 BMI result Body Mass Index 25.7 Tobacco/Smoking Status: Tobacco use Status Tobacco use date assessed 11/08/22 11/08/22 09:20 Patient Tobacco Use Status Never used Tobacco 11/08/22 09:11 e-Cigarette/Vaping Use Never Used 11/08/22 09:11 PHQ-9: PHQ-9 Score PHQ-9: Total score 12 11/08/22 10:14 Thrive Assessment: Date of Thrive Assessment Date Thrive assessed 11/08/22 11/08/22 09:22 Immunizations pneumoc 20-chary conj-dip cr(PF) Performing Provider: Sadia Marquez MD Administered by: Shital Grijalva CMA on 11/08/22 10:16 Dose Route Admin Location Lot Number Expiration Date [employer] 0.5 mL IM Right Deltoid [id number] 01/26/24 [id number] [employer] VIS Given Date VIS Provided VIS Publication Date 11/08/22 Single Vaccine 21 Eligibility Eligibility Date Funding Source Not VFC Eligible 11/08/22 Private Assessment and Plan Assessment & Plan (1) Hypercalcemia: Code(s): E83.52 - Hypercalcemia (2) Seizures: Code(s): R56.9 - Unspecified convulsions (3) Status post aortic valve replacement: Comment: 23 mm Inspiris valve, 01/09/21 Code(s): Z95.2 - Presence of prosthetic heart valve Plan: may restart aspirin 81 mg per neurology consult on 10/31/22 (4) Hyperlipidemia LDL goal <70: Code(s): E78.5 - Hyperlipidemia, unspecified (5) Essential hypertension: Code(s): I10 - Essential (primary) hypertension (6) Spastic hemiparesis of left dominant side as late effect of cerebrovascular disease: Code(s): I69.952 - Hemiplegia and hemiparesis following unspecified cerebrovascular disease affecting left dominant side Plan: follow-up with Dr. Ryan Mason at [facility] neurology (7) History of CVA with residual deficit: Code(s): I69.30 - Unspecified sequelae of cerebral infarction Plan: Follow-up with her neurologist at [facility] (8) Need for pneumococcal 20-valent conjugate vaccination: Code(s): Z23 - Encounter for immunization Plan: Prevnar 20 given Orders: Orders Calcium, Ionized Today E83.52 - Hypercalcemia Pneumococcal 20 Immunization Today Z23 - Encounter for immunization Medications: New metoprolol tartrate 25 mg PO DAILY 30 tabs 0RF Coding Level of Care Code Est Pt Level 4 (71700) Diagnoses Hypercalcemia E83.52 Seizures R56.9 Status post aortic valve replacement Z95.2 Hyperlipidemia LDL goal <70 E78.5 Essential hypertension I10 Spastic hemiparesis of left dominant side as late effect of cerebrovascular disease I69.952 History of CVA with residual deficit I69.30 Need for pneumococcal 20-valent conjugate vaccination Z23
[2022-11-08 09:11] VITALS: BP 118/80; PULSE 97; O2SAT 97; BMI 25.7
== END 2022-11-08 10:26 | disposition home or self-care (01) ==
LOC: HO.HMGC 09:04
PROVIDERS: PCP Internal Medicine; Visit Provider Internal Medicine
DX: E83.52 Hypercalcemia (principal); R56.9 Unspecified convulsions; Z95.2 Presence of prosthetic heart valve; E78.5 Hyperlipidemia, unspecified; I10 Essential (primary) hypertension; I69.952 Hemiplegia and hemiparesis following unspecified cerebrovascular disease affecting left dominant side; I69.30 Unspecified sequelae of cerebral infarction; Z23 Encounter for immunization
CPT/HCPCS: 99499

== ENCOUNTER 2022-11-26 08:45 | Outpatient (REF) | payer MEDICAID, SELFPAY ==
[2022-11-26 12:38] LABS: Alanine Aminotransferase 12 U/L (0-31); Aspartate Amino Transferase 19 U/L (5-31); Cholesterol 170 mg/dL; HDL Cholesterol 62 mg/dL; LDL Cholesterol Calculated 90 mg/dl; Triglycerides 94 mg/dL
[2022-11-26 12:59] LABS: Folate 15.8 ng/mL (> or = 4.0); Vitamin B12 571 pg/mL (200-900)
[2022-11-29 11:22] LABS: Calcium, Ionized 5.3 mg/dL (4.8-5.6)
== END 2022-11-26 08:46 | disposition home or self-care (01) ==
LOC: HO.HMGCLDS 08:45
PROVIDERS: Visit Provider Internal Medicine
DX: E78.5 Hyperlipidemia, unspecified (principal); E83.52 Hypercalcemia; I10 Essential (primary) hypertension; I69.30 Unspecified sequelae of cerebral infarction; R63.0 Anorexia; Z95.2 Presence of prosthetic heart valve
CPT/HCPCS: 36415; 80061; 82306; 82330; 82607; 82746; 84450; 84460

== ENCOUNTER → 2022-11-27 08:40 | Outpatient (REF) | payer MEDICAID, SELFPAY ==
--- NOTE | 2022-11-27 08:43 | CA_ITS ---
Transthoracic Echocardiogram Patient (Last, First, Middle): Carrie Gonzales M Gender: Female Date of : 1955 Age: 67 Procedure Date: 11/27/2022 Procedure Type: Transthoracic Echocardiogram Location: OP Height: 157.48 cm Weight: 72.58 kg BSA: 1.74 m2 Heart Rate: 69 bpm BP: 110 / 70 mmHg Legal Librarian: MONIQUE Referring MD: Levon Reardon MD Standards Analyst: Levon Reardon MD Symptoms: Z95.2 - Presence of prosthetic heart valve Study Quality: Adequate ECG Rhythm: Sinus Conclusions: - 1. Normal LV systolic function with impaired relaxation filling pattern 2. Normally function bioprosthetic aortic valve mean gradient of 10 mmHg 3. Normal RV systolic pressure 4. Mildly dilated ascending aorta at 3.8 cm 5. No pericardial effusion Findings Left Ventricle Normal left ventricular size, thickness, and systolic function. The visually estimated ejection fraction is between 55-60%. Spectral Doppler is indicative of an impaired relaxation filling pattern. E/E prime ratio is between 8 and 15 consistent with indeterminate filling pressures. There is mild septal asymmetric hypertrophy. Right Ventricle Normal right ventricular cavity size and systolic function. Atria Both atria are normal in size. Aortic Valve A bioprosthetic aortic valve is present. The prosthetic aortic valve appears to be functioning normally. There is no aortic valve stenosis. The mean gradient is 10 mmHg. There is no aortic valve regurgitation. Mitral Valve There is mild anterior and posterior mitral leaflet thickening. There is mild mitral annular calcification. There is no mitral valve regurgitation. There is no mitral valve stenosis. Pulmonic Valve The pulmonic valve is likely normal. Tricuspid Valve Normal tricuspid valve structure. There is mild tricuspid valve regurgitation. There is no evidence of pulmonary hypertension. Great Vessels The pulmonary artery was not well visualized. The asc aorta is normal in size. There is mild dilatation of the ascending aorta measuring 3.80 cm. Venous The inferior vena cava is normal in size and collapses greater than 50% with inspiration. Pericardium/Pleural There is no evidence of pericardial effusion. Prior Study Comparison No significant change compared to prior study dated: 12/11/2021. Measurements 2D Linear Measurements IVSd: 1.18 0.6-0.9/0.6-1.0 cm LVIDd: 4.32 3.9-5.3/4.2-5.9 cm LVIDd Index: 2.48 2.4-3.2/2.2-3.1 cm/m2 LVIDs: 2.85 2.0-3.6 cm LVPWd: 0.82 0.7-1.1 cm LA Diam: 4.40 2.7-3.8/3.0-4.0 cm LAIDs Index: 2.53 1.5-2.3 cm/m2 LV Mass: 179.06 67-162/88-224 g LV Mass Index: 102.91 43-95/49-115 g/m2 LVOT Diam: 2.00 3.0+(-)1.3 cm 2D Systolic Function EF 4C: 56.90 >55% EF 2C: 45.80 >55% Mitral Valve MV Pk E: 0.78 MV PK A: 1.02 MV Decel Time: 181.00 E/A: 0.80 E'Lateral: 10.80 E'Medial: 4.90 E/E' Med: 15.90 E/E' Lat: 7.20 PHT: 53.00 MVA PHT: 4.15 Decel [place]: 4.29 Aortic Valve AoV Pk Suman: 2.04 AoV Mn Suman: 1.44 AoV VTI: 0.45 AoV Pk Grad: 17.00 Aov Mn Grad: 10.00 [place] Cont.VTI: 1.58 LVOT LVOT Pk Suman: 1.04 LVOT Mn Suman: 0.70 LVOT VTI: 0.22 LVOT Pk Grad: 4.00 LVOT Mn Grad: 2.00 LVOT Diam: 2.00 LVOT Area: 3.14 Diastolic Function MV Pk E: 0.78 MV Pk A: 1.02 E/A: 0.80 E'Medial: 4.90 E/E' Med: 15.90 E' Laterial: 10.80 E/E' Lat: 7.20 Tricuspid Valve TR Pk Suman: 2.25 TR Pk Grad: 20.00 RA Press: 3.00 RVSP: 23.00 Great Vessels Aorta Sinus of Valsalva: 3.60 2.0-3.5 cm Ao Asc: 3.80 2.1-3.4 cm Pulmonary Valve PV Pk Suman: 1.22 Peak PV Grad: 6.00 Updated in Other Vendor System with Status of Final Levon Reardon MD electronically signed on 11/27/2022 4:51:10 PM with status of Final
== END ==
LOC: HO.CARD 08:40
PROVIDERS: PCP Internal Medicine; Visit Provider Internal Medicine Cardiovascular Disease
DX: Z95.2 Presence of prosthetic heart valve (principal)
CPT/HCPCS: 93306

== ENCOUNTER → 2022-12-13 09:09 | Outpatient (BNVA) | payer MEDICAID, SELFPAY | PROVIDERS: PCP Internal Medicine; Referring Provider Internal Medicine; Visit Provider Internal Medicine Cardiovascular Disease | DX: I10 Essential (primary) hypertension (principal); I69.952 Hemiplegia and hemiparesis following unspecified cerebrovascular disease affecting left dominant side; Z95.2 Presence of prosthetic heart valve; Z79.899 Other long term (current) drug therapy | CPT/HCPCS: 99212 ==

== ENCOUNTER 2023-01-28 08:46 | Outpatient (REF) | payer MEDICAID, SELFPAY | END 2023-01-28 08:47 | disposition home or self-care (01) | LOC: HO.MAMMO 08:46 | PROVIDERS: PCP Internal Medicine; Visit Provider Internal Medicine | DX: Z13.89 Encounter for screening for other disorder (principal) ==

== ENCOUNTER 2023-02-19 13:15 | Outpatient (REF) | payer MEDICAID, SELFPAY ==
--- NOTE | ~2023-02-19 | MM_ITS ---
EXAMINATION: MM SCREENING DIGITAL BREAST TOMOSYNTHESIS, BILATERAL CLINICAL INFORMATION: Screening. Asymptomatic. The lifetime risk of breast cancer based on the Tyrer-Cuzick Model is 5%. COMPARISON: Mammography: 08/15/2021, 1 11/20/2019 (baseline). TECHNIQUE: Digital breast tomosynthesis is performed in both the craniocaudal and mediolateral oblique views along with computer-aided detection (CAD). Synthesized 2D images are generated from the tomosynthesis. Technologist notes technically challenging exam. Positioning tailored to patient capabilities. FINDINGS: There are scattered areas of fibroglandular density (ACR BI-RADS breast composition Category b). Technically challenging exam, positioning tailored to patient capabilities with inherent limitations particularly in imaging the axilla. There are no significant masses, abnormal calcifications, or other abnormalities. No architectural abnormality or developing density. The skin contours are smooth. MM/MM tomosynthesis screening BI IMPRESSION: -No mammographic evidence of malignancy. -Patient study limitations. ASSESSMENT: BI-RADS 2: Benign RECOMMENDATION: -Axilla beyond field of view. Recommend correlation with routine clinical exam. -Otherwise, routine annual mammography screening. This patient's information was entered into a reminder system with a target due date for their next mammogram.
== END 2023-02-19 13:16 | disposition home or self-care (01) ==
LOC: HO.MAMMO 13:15
PROVIDERS: Visit Provider Internal Medicine
DX: Z12.31 Encounter for screening mammogram for malignant neoplasm of breast (principal)
CPT/HCPCS: 77063; 77067

== ENCOUNTER 2023-03-14 09:48 | Outpatient (REF) | payer MEDICAID, SELFPAY ==
[2023-03-14 12:03] LABS: Alanine Aminotransferase 18 U/L (0-31); Anion Gap 11 (12-20); Aspartate Amino Transferase 27 U/L (5-31); Blood Urea Nitrogen 12 mg/dL (9-16); Carbon Dioxide 31 mmol/L (22-29); Chloride 106 mmol/L (96-108); Cholesterol 176 mg/dL; Estimated Glomerular Filt Rate > 60; Glucose Fasting 91 mg/dL (60-99); HDL Cholesterol 76 mg/dL; LDL Cholesterol Calculated 89 mg/dl; Potassium 4.8 mmol/L (3.3-5.1); Sodium 143 mmol/L (135-145); Triglycerides 56 mg/dL
[2023-03-14 12:22] LABS: Vitamin D 25-OH Total 57.2 ng/mL (>30)
== END 2023-03-14 09:49 | disposition home or self-care (01) ==
LOC: HO.HMGCLDS 09:48
PROVIDERS: PCP Internal Medicine; Visit Provider Internal Medicine
DX: E55.9 Vitamin D deficiency, unspecified (principal); R56.9 Unspecified convulsions; E78.5 Hyperlipidemia, unspecified; I10 Essential (primary) hypertension; Z95.2 Presence of prosthetic heart valve; Z86.73 Personal history of transient ischemic attack (TIA), and cerebral infarction without residual deficits
CPT/HCPCS: 36415; 80048; 80061; 82306; 84450; 84460

== ENCOUNTER 2023-10-15 08:24 | Emergency (ER) | payer MEDICAID, SELFPAY ==
--- NOTE | ~2023-10-15 | CT_ITS ---
EXAMINATION: CT HEAD WITHOUT CONTRAST CLINICAL INFORMATION: Altered mental status. COMPARISON: 09/27/2022 TECHNIQUE: Contiguous axial imaging was performed from the skull base to vertex without intravenous administration of contrast. This CT examination was performed using dose optimization techniques as appropriate, variously including the following: *Automated exposure control *Adjustment of mA and/or kV according to patient size (this includes techniques or standardized protocols for targeted exams where dose is matched to indication/reason for exam; i.e. extremities or head) *Use of iterative reconstruction technique DLP: 573 mGy-cm FINDINGS: There is cerebral volume loss with prominence of the lateral and the third ventricles. The cortical sulci are widened appropriately. The fourth ventricle and basal cisterns are normally outlined. There is right frontal encephalomalacia/cystic change similar to previous. An old right anterior cerebral artery distribution infarct is also again noted. There is moderate bilateral periventricular and central white matter diminished attenuation. There is no acute territorial defect, hemorrhage or midline shift. The extra-axial spaces are unremarkable. Calvarium: Intact. Maxillofacial sinuses and mastoids: Clear as visualized. CT/CT head/brain wo IV con IMPRESSION: 1. No acute intracranial process seen. 2. Right frontal encephalomalacia/cystic change similar to previous exam. 3. Moderate periventricular and central white matter diminished attenuation likely chronic small vessel ischemic changes. 4. Cerebral volume loss. 5. No significant interval change.
[2023-10-15 08:39] VITALS: BP 175/114; PULSE 104; RESP 17; TEMP 36.4; O2SAT 97; BMI 23.2
--- NOTE | 2023-10-15 08:54 | ECG_ITS ---
Test Reason : ams,cardiac hx Blood Pressure : / mmHG Vent. Rate : 091 BPM Atrial Rate : 091 BPM P-R Int : 234 ms QRS Dur : 100 ms QT Int : 360 ms P-R-T Axes : 050 -44 062 degrees QTc Int : 442 ms Sinus rhythm with 1st degree A-V block Left axis deviation Minimal voltage criteria for LVH, may be normal variant ( Cecil product ) Septal infarct , age undetermined Abnormal ECG When compared with ECG of 13-JUL-2022 12:54, Septal infarct is now Present Referred By: Generic ED Physician Electronically Signed By:NELSON PEREZ MD
--- NOTE | 2023-10-15 09:07 | ED_ITS ---
HPI - General Adult General Chief complaint: Altered Mental Status Stated complaint: confusion Time Seen by Provider: 10/15/23 09:06 Source: patient and family (Significant other 40 years) Mode of arrival: ambulatory Limitations: altered mental status History of Present Illness HPI narrative: This is a 68-year-old female history of dementia presenting to the emergency department for evaluation of altered mental status, worsening behavior at home, according to significant other who is here patient has been altered, wandering, recently left the house, drove to [place] and he almost could not find her, he has had to call police multiple times. Related Data Home Medications Medication Instructions Recorded Confirmed aspirin 81 mg tablet,delayed 81 mg PO DAILY 12/13/22 12/13/22 release (Adult Aspirin Regimen) Previous Rx's Medication Instructions Recorded levetiracetam 250 mg tablet 750 mg (3 x 250 mg) PO BID 30 days 09/10/22 (Keppra) #180 tabs rosuvastatin 10 mg tablet 10 mg PO DAILY #90 tabs 03/07/23 metoprolol tartrate 25 mg tablet 25 mg PO DAILY #90 tabs 08/14/23 cefuroxime axetil 250 mg tablet 250 mg PO BID 6 days #12 tabs 10/16/23 Allergies Allergy/AdvReac Type Severity Reaction Status Date / Time No Known Allergies Allergy Verified 04/22/23 03:44 [No Known Allergies*] Review of Systems 2 Review of Systems: Yes Unobtainable due to mental status PMFSH Past Medical History Attestation statement: The following information was validated with the patient. Source: old records reviewed and nursing notes reviewed Medical History Bilateral impacted cerumen Lesion of skin of face Spastic hemiparesis of left dominant side as late effect of cerebrovascular disease Seizures Hx of intracranial hemorrhage Poor appetite Vitamin D deficiency Postoperative atrial fibrillation History of intracerebral hemorrhage without residual deficit Hyperlipidemia LDL goal <70 Severe aortic stenosis Essential hypertension History of CVA with residual deficit Surgical History History of heart valve replacement with bioprosthetic valve Status post aortic valve replacement History of cardiac catheterization Family History Family History Father Myocardial infarction Coronary artery disease Mother Coronary artery disease CVA (cerebral vascular accident) Mental health disorder Other No known health problems Social History Social History Housing: House Alcohol intake: never Patient Tobacco Use Status: Never used Tobacco Smoked in Last 30 Days: No e-Cigarette/Vaping Use: Never Used Second Hand Smoke Exposure: No Use of substances other than those prescribed or required for medical reasons: No Advance Directives: Yes Advance Directives on File: Yes Advance Directives Date on File: 09/17/22 service: No Current occupational status: retired Cognitive needs: Yes Hearing needs: Yes Vision needs: Yes Physical Exam ED Vital Signs: Vital Signs - 24 hr 10/15/23 11:59 10/15/23 16:10 10/15/23 21:54 Temperature 98.0 F 98.4 F 98.6 F Pulse Rate 60 75 76 Respiratory Rate 12 18 16 Blood Pressure 130/91 H 132/87 131/90 H Pulse Oximetry 99 96 99 Oxygen Delivery Method Room Air Room Air Room Air 10/16/23 04:41 10/16/23 05:30 10/16/23 07:12 Temperature 97.8 F 98.3 F Pulse Rate 71 75 Respiratory Rate 14 16 15 Blood Pressure 121/83 124/90 H Pulse Oximetry 97 97 Oxygen Delivery Method Room Air Room Air 10/16/23 08:04 Temperature Pulse Rate 75 Respiratory Rate Blood Pressure 124/90 H Pulse Oximetry 97 Oxygen Delivery Method BMI result Body Mass Index 23.2 Patient hypertensive, tachycardic likely secondary to non med compliance. Will give home meds Appearance: Alert.? Oriented to person not place, time or situation.? No acute distress.? Head: Normocephalic, atraumatic, no step-offs or deformities Eyes: Pupils equal, round and reactive to light.? ENT: Pharynx normal.? Neck: Normal inspection.? Neck supple.? CVS: Normal heart rate and rhythm.? Pulses normal.? Respiratory: No respiratory distress.? Breath sounds normal.? Abdomen: Soft and nontender.? Skin: Skin warm and dry.? Normal skin color.? Normal skin turgor.? Extremities: No lower extremity edema.? No calf ttp. 5/5 strength to bilateral upper and lower extremities Neuro: Oriented to person not place, time or situation.?No motor deficit.? No sensory deficit. Unable to obtain an accurate neurological assessment on patient, poor historian, not following commands. Course Reevaluation(s) Reevaluation #1: CBC without leukocytosis or anemia. Chemistry unremarkable no acute findings requiring intervention. Normal magnesium normal lactic acid. Troponin negative, EKG nonischemic. UA with trace leukocyte esterases and 2+ bacteria there is concern for UTI as patient is also altered will start her on p.o. Ceftin. Not meeting criteria for inpatient admission therefore she can receive p.o. antibiotics while in the department. Negative tox. CT head no acute intracranial process seen. Right frontal encephalomalacia/cystic changes similar to PB scan. Cerebral volume loss, moderate preventricular in central white matter diminished attenuation likely chronic small vessel ischemic changes. No signs of bleed. At this time patient to be placed into observation to be seen by care team as well as likely Case Management at some point. A time observation was started patient common cooperative no acute distress. Still pending med reconciliation Time: 11:40 Reevaluation #2: Patient was evaluated by school psychologist assistant no need for inpatient psychiatric admission. Patient will likely benefit from Case Management as partner at home can no longer care for her. Time: 15:38 Reevaluation #3: will return home tomorrow with new VNA and [facility] referral. Additional Reevaluation(s): Her sig other/HCP, Emiliano is going to take her home. [facility] and [facility] will follow up for additional needs at home. Patient will take seroquel BID per psych. Will dc home w/ ceftin.. Medications Administered Generic Name Dose Route Start Last Admin Trade Name Freq PRN Reason Stop Dose Admin Cefuroxime Axetil 250 mg 10/15/23 21:00 10/16/23 09:58 Cefuroxime Axetil 250 Mg Tablet PO 10/20/23 07:00 250 mg BID FERN Administration Discontinued Medications Generic Name Dose Route Start Last Admin Trade Name Freq PRN Reason Stop Dose Admin Melatonin 6 mg 10/16/23 01:43 10/16/23 01:50 Melatonin 3 Mg Tablet PO 10/16/23 01:44 6 mg ONCE ONE Administration Metoprolol Tartrate 25 mg 10/15/23 10:25 10/15/23 10:39 Metoprolol Tartrate 25 Mg Tablet PO 10/15/23 10:26 25 mg ONCE ONE Administration Protocol Medical Decision Making Medical Decision Making [facility] Narrative: 1026 68-year-old female presents with altered mental status, worsening confusion, eloping from home. Physical exam patient alert to person not place, time or situation. No signs of acute trauma. This is likely worsening dementia versus acute UTI versus schizophrenia versus bipolar. Unlikely intracranial hemorrhage stroke, posterior stroke. Will rule out metabolic derangements, anemia. Plan at this time labs, urine, head CT Differential Diagnosis Differential Diagnoses: The differential diagnosis associated with the presentation includes This is likely worsening dementia versus acute UTI versus schizophrenia versus bipolar. Unlikely intracranial hemorrhage stroke, posterior stroke. Will rule out metabolic derangements, anemia. Admission/Observation Consideration of admission/observation: Escalation of care including admission/observation considered Lab Data [facility] Lab Attestation statement: I reviewed the patient's lab results. 10/15/23 08:57 10/15/23 08:57 Labs: Lab Results 10/15/23 10/15/23 10/15/23 Range/Units 08:52 08:57 08:58 WBC 5.3 (4.8-10.8) X10*3/uL RBC 4.20 (4.20-5.50) X10*6/uL Hgb 12.7 (12.0-16.0) g/dl Hct 39.3 (37.0-47.0) % MCV 93.6 (80.0-98.0) fL MCH 30.2 (27.0-33.0) pg MCHC 32.3 (31.0-35.0) g/dl RDW 11.8 (11.0-16.0) % Plt Count 198 D (160-400) X10*3/uL MPV 10.2 (9.4-12.3) fL Immature Gran % (Auto) 0.4 (0.0-0.4) % Neut % (Auto) 76.3 H (45-73) % Lymph % (Auto) 15.0 L (20-40) % [place] % (Auto) 5.3 (2-11) % Eos % (Auto) 2.8 (0-4) % Baso % (Auto) 0.2 (0-2) % Lymph # (Auto) 0.8 L (1.2-4.9) X10*3/uL [place] # (Auto) 0.3 (0.1-1.2) X10*3/uL Eos # (Auto) 0.2 (0.0-0.4) X10*3/uL Baso # (Auto) 0.0 (0.0-0.2) X10*3/uL Abs Immat Gran (auto) 0.02 (0.00-0.03) X10*3/uL Absolute Neuts (auto) 4.1 (2.0-8.3) x10*3/uL Absolute Nucleated RBC 0.000 (0.0-0.012) X10*3/uL Nucleated RBC % (auto) 0.0 (0.0-0.2) /100WBC Sodium 145 (135-145) mmol/L Potassium 3.8 D (3.3-5.1) mmol/L Chloride 107 (96-108) mmol/L Carbon Dioxide 28 (22-29) mmol/L Anion Gap 14 (12-20) BUN 22 H (9-16) mg/dL Creatinine 0.75 (0.5-1.4) mg/dL Estim Creat Clear Calc 55.2 Estimated GFR > 60 POC Glucose 112 (60-115) mg/dL Random Glucose 113 (60-115) mg/dL Lactic Acid (0.5-2.0) mmol/L Calcium 10.2 (8.4-10.2) mg/dL Magnesium (1.6-2.6) mg/dL Troponin I High Sens < 2.7 (<3.5-17.0) ng/L Urine Color Yellow Urine Appearance Cloudy Urine pH 6.0 (5.0-9.0) Ur Specific [place] 1.010 (1.005-1.025) Urine Protein Negative (Neg-Trace) mg/dL Urine Glucose (UA) Negative (Negative) mg/dL Urine Ketones Negative (Negative) mg/dL Urine Blood Small (1+) H (Negative) Urine Nitrite Negative (Negative) Ur Leukocyte Esterase Trace H (Negative) Urine RBC 6-10 H (0-2) /HPF Urine WBC 0-5 (0-5) /HPF Ur Squamous Epith Cells 0-2 (0-2) /HPF Urine Bacteria 2+ (None Seen) Hyaline Casts 0-2 (0-2) /LPF Urine Opiates Screen (Not Detect) Urine Fentanyl Screen (Not Detect) Ur Barbiturates Screen (Not Detect) Ur Phencyclidine Scrn (Not Detect) Ur Amphetamines Screen (Not Detect) U Benzodiazepines Scrn (Not Detect) Urine Cocaine Screen (Not Detect) U Marijuana (THC) Screen (Not Detect) Ethyl Alcohol < 10 mg/dL 10/15/23 10/15/23 10/15/23 Range/Units 09:40 09:51 16:21 WBC (4.8-10.8) X10*3/uL RBC (4.20-5.50) X10*6/uL Hgb (12.0-16.0) g/dl Hct (37.0-47.0) % MCV (80.0-98.0) fL MCH (27.0-33.0) pg MCHC (31.0-35.0) g/dl RDW (11.0-16.0) % Plt Count (160-400) X10*3/uL MPV (9.4-12.3) fL Immature Gran % (Auto) (0.0-0.4) % Neut % (Auto) (45-73) % Lymph % (Auto) (20-40) % [place] % (Auto) (2-11) % Eos % (Auto) (0-4) % Baso % (Auto) (0-2) % Lymph # (Auto) (1.2-4.9) X10*3/uL [place] # (Auto) (0.1-1.2) X10*3/uL Eos # (Auto) (0.0-0.4) X10*3/uL Baso # (Auto) (0.0-0.2) X10*3/uL Abs Immat Gran (auto) (0.00-0.03) X10*3/uL Absolute Neuts (auto) (2.0-8.3) x10*3/uL Absolute Nucleated RBC (0.0-0.012) X10*3/uL Nucleated RBC % (auto) (0.0-0.2) /100WBC Sodium (135-145) mmol/L Potassium (3.3-5.1) mmol/L Chloride (96-108) mmol/L Carbon Dioxide (22-29) mmol/L Anion Gap (12-20) BUN (9-16) mg/dL Creatinine (0.5-1.4) mg/dL Estim Creat Clear Calc Estimated GFR POC Glucose (60-115) mg/dL Random Glucose (60-115) mg/dL Lactic Acid 0.6 (0.5-2.0) mmol/L Calcium (8.4-10.2) mg/dL Magnesium 2.1 (1.6-2.6) mg/dL Troponin I High Sens (<3.5-17.0) ng/L Urine Color Yellow Urine Appearance Clear Urine pH 6.5 (5.0-9.0) Ur Specific [place] 1.015 (1.005-1.025) Urine Protein Negative (Neg-Trace) mg/dL Urine Glucose (UA) Negative (Negative) mg/dL Urine Ketones Trace (Negative) mg/dL Urine Blood Negative (Negative) Urine Nitrite Negative (Negative) Ur Leukocyte Esterase Negative (Negative) Urine RBC (0-2) /HPF Urine WBC (0-5) /HPF Ur Squamous Epith Cells (0-2) /HPF Urine Bacteria (None Seen) Hyaline Casts (0-2) /LPF Urine Opiates Screen Not Detected (Not Detect) Urine Fentanyl Screen Not Detected (Not Detect) Ur Barbiturates Screen Not Detected (Not Detect) Ur Phencyclidine Scrn Not Detected (Not Detect) Ur Amphetamines Screen Not Detected (Not Detect) U Benzodiazepines Scrn Not Detected (Not Detect) Urine Cocaine Screen Not Detected (Not Detect) U Marijuana (THC) Screen Not Detected (Not Detect) Ethyl Alcohol mg/dL Independent Interpretation I performed an independent interpretation of an: CT Scan Radiology Impression Discussion of test interpretation with radiology: I have reviewed the radiologist's reading. Chronic Conditions Patient?s care impacted by: Other (dementia, seizure, hld, ) Core Measures AMI core measures followed: Yes Measure exclusions: not indicated Critical Care Time Critical Care Time Critical Care Time: No Discharge Plan Discharge Clinical Impression: Acute UTI, Dementia Patient Disposition: Home, Self-Care Instructions: Dementia (ED), Urinary Tract Infection in Older Adults (ED) Additional Instructions: Take your medications as prescribed. If you were prescribed antibiotics today, it is important that you take your medication to their entirety, do not skip any doses, do not finish them early. Follow-up with your primary care provider this week. Return to the emergency department with new or worsening symptoms. Such as fevers, chills, chest pain, shortness of breath, nausea, vomiting, dizziness, headache, vision changes, lethargy In case of emergency call 911 [facility] has been arranged and [facility] will follow up for additional needs at home. Prescriptions: New cefuroxime axetil 250 mg tablet 250 mg PO BID 6 Days Qty: 12 0RF No Action levetiracetam [Keppra] 250 mg tablet 750 mg PO BID 30 Days Qty: 180 0RF metoprolol tartrate 25 mg tablet 25 mg PO DAILY Qty: 90 3RF rosuvastatin 10 mg tablet 10 mg PO DAILY Qty: 90 3RF aspirin [Adult Aspirin Regimen] 81 mg tablet,delayed release (DR/EC) 81 mg PO DAILY Referrals: [facility] [Outside]
[2023-10-15 09:10] LABS: Glucose, Whole Blood 112 mg/dL (60-115)
[2023-10-15 09:10] LABS: MANUAL DIFF FLAG NO
[2023-10-15 09:12] LABS: Appearance Urine Cloudy; Color Urine Yellow; Glucose Urine UA Negative (Negative); Leukocyte Esterase Urine Trace (Negative); Nitrite Urine Negative (Negative); UMIC TRIGGER UACC YES; Urine Blood Small (1+) (Negative); Urine Ketones Negative (Negative); Urine Protein Negative (Neg-Trace)
[2023-10-15 09:13] LABS: Basophils Percent Auto 0.2 % (0-2); Eosinophils Absolute Auto 0.2 X10*3/uL (0.0-0.4); Eosinophils Percent Auto 2.8 % (0-4); Hematocrit 39.3 % (37.0-47.0); Hemoglobin 12.7 g/dl (12.0-16.0); Imm Gran Abs Auto 0.02 X10*3/uL (0.00-0.03); Imm Gran Pct Auto 0.4 % (0.0-0.4); Lymphocytes Absolute Auto 0.8 X10*3/uL (1.2-4.9); Mean Corpuscular HGB Conc 32.3 g/dl (31.0-35.0); Mean Corpuscular Hemoglobin 30.2 pg (27.0-33.0); Mean Corpuscular Volume 93.6 fL (80.0-98.0); Mean Platelet Volume 10.2 fL (9.4-12.3); Monocytes Absolute Auto 0.3 X10*3/uL (0.1-1.2); Monocytes Percent Auto 5.3 % (2-11); Neutrophils Absolute Auto 4.1 x10*3/uL (2.0-8.3); Neutrophils Percent Auto 76.3 % (45-73); Platelet Count 198 X10*3/uL (160-400); Red Cell Distribution Width 11.8 % (11.0-16.0); White Blood Count 5.3 X10*3/uL (4.8-10.8)
[2023-10-15 09:14] LABS: Bacteria Urine 2+ (None Seen); Hyaline Casts Urine 0-2 /LPF (0-2); Squamous Epithelial Cell Urine 0-2 /HPF (0-2); WBC Urine 0-5 /HPF (0-5)
[2023-10-15 09:32] LABS: Anion Gap 14 (12-20); Blood Urea Nitrogen 22 mg/dL (9-16); Calcium 10.2 mg/dL (8.4-10.2); Carbon Dioxide 28 mmol/L (22-29); Chloride 107 mmol/L (96-108); Creatinine Clr Calc Pharmacy 55.2; Estimated Glomerular Filt Rate > 60; Ethanol < 10 mg/dL; Glucose Random 113 mg/dL (60-115); Potassium 3.8 mmol/L (3.3-5.1); Sodium 145 mmol/L (135-145)
[2023-10-15 09:39] LABS: Troponin-I High Sensitivity < 2.7 ng/L (<3.5-17.0)
[2023-10-15 10:07] LABS: Magnesium 2.1 mg/dL (1.6-2.6)
[2023-10-15 10:11] LABS: Lactic Acid 0.6 mmol/L (0.5-2.0)
[2023-10-15 10:37] VITALS: BP 131/90; PULSE 69; RESP 13; TEMP 36.6; O2SAT 97
[2023-10-15] MEDS: Metoprolol Tartrate 25 MG TABLET PO (10:39)
[2023-10-15 11:59] VITALS: BP 130/91; PULSE 60; RESP 12; TEMP 36.7; O2SAT 99
--- NOTE | 2023-10-15 12:45 | MHC.EDTECH ---
T/w ambulated with Pt to bathroom and back to stretcher without difficulty. Pt resting in bed, call lieberman within reach
--- NOTE | 2023-10-15 13:55 | PC.NURSE ---
sitter at bedside as pt is forgetful and wanders.
--- NOTE | 2023-10-15 16:09 | MHC.CM.ED ---
Received case management consult from Coby OLIVER. Patient came to the ER due to confusion. Patient has a history of dementia. Diagnosed with UTI in the ER. Currently on PO antibiotics. Attempted to speak with patient. Patient confused at this time. Spoke with patient's sig/other, HCP, Emiliano, via telephone at [phone]. Patient lives with Emiliano, ambulates independently and had no services prior to coming to the hospital. PCP verified as Dr Marquez. Copy of HCP verified to be on file. Patient received 3 Moderna and 1 Pfizer vaccines. Emiliano has been trying to get additional help in the home but has not been successful. Patient has been eloping from the home. Emiliano is not interested in placement at this time. Emiliano is agreeable to patient spending the night, case management arranging VNA and putting a referral in for [facility]. Coby OLIVER aware. Continue to monitor for d/c needs.
[2023-10-15 16:10] VITALS: BP 132/87; PULSE 75; RESP 18; TEMP 36.9; O2SAT 96
[2023-10-15 16:31] LABS: Appearance Urine Clear; Color Urine Yellow; Glucose Urine UA Negative (Negative); Leukocyte Esterase Urine Negative (Negative); Nitrite Urine Negative (Negative); PH 6.5 (5.0-9.0); Specific Gravity - Urine 1.015 (1.005-1.025); Urine Blood Negative (Negative); Urine Ketones Trace mg/dL (Negative); Urine Protein Negative (Neg-Trace)
[2023-10-15 16:41] LABS: Amphetamine Screen Urine Not Detected (Not Detect); Barbiturates, Urine Not Detected (Not Detect); Benzodiazepines Screen Urine Not Detected (Not Detect); Cannabinoid Screen Urine Not Detected (Not Detect); Cocaine Screen Urine Not Detected (Not Detect); Fentanyl, urine Not Detected (Not Detect); Opiate Screen Urine Not Detected (Not Detect); Phencyclidine Screen Urine Not Detected (Not Detect)
--- NOTE | 2023-10-15 16:48 | PM.PSYCN ---
History of Present Illness Date of Service: 10/15/2023 Chief Complaint: confusion Reason for Consult: found wondering Requesting physician: Israel Evans Discussed with referring provider: Yes Sources of Information: patient interviewed, chart reviewed and crisis/core team assessment reviewed HPI Narrative: Mrs. Gonzales is a 68 year-old woman with advanced dementia. Pt was brought via EMS after she elope from the home where she resides with her significant other, got lost and police had to be called. Pt seen in the ED. Pt is pleasant and friendly. Her hands and clothes have dirt on it and apparently she has not showered in several month. She reports she lives in [place]. She does not know name of this place or that this is a hospital. She states I don't know what kind of place this is but I like the curtains pointing at curtains that cover ED rooms. She denies any physical concerns. She reports she will walk home even though she does not know where she is now. She reports month is June. Pt has not presented as combative but will try to walk around the ED seeking for an exit. She does not know how long she has been here. [facility] Medical History Bilateral impacted cerumen Lesion of skin of face Spastic hemiparesis of left dominant side as late effect of cerebrovascular disease Seizures Hx of intracranial hemorrhage Poor appetite Vitamin D deficiency Postoperative atrial fibrillation History of intracerebral hemorrhage without residual deficit Hyperlipidemia LDL goal <70 Severe aortic stenosis Essential hypertension History of CVA with residual deficit Surgical History History of heart valve replacement with bioprosthetic valve Status post aortic valve replacement History of cardiac catheterization Diagnostics Vital Signs (24Hr): Vital Signs - 24 hr 10/15/23 08:39 10/15/23 10:37 10/15/23 11:59 Temperature 97.5 F 97.9 F 98.0 F Pulse Rate 104 H 69 60 Respiratory Rate 17 13 12 Blood Pressure 175/114 H 131/90 H 130/91 H Pulse Oximetry 97 97 99 Oxygen Delivery Method Room Air Room Air Room Air 10/15/23 16:10 Temperature 98.4 F Pulse Rate 75 Respiratory Rate 18 Blood Pressure 132/87 Pulse Oximetry 96 Oxygen Delivery Method Room Air BMI result Body Mass Index 23.2 Labs 10/15/23 08:57 10/15/23 08:57 Labs: Laboratory Results - last 48 hr 10/15/23 10/15/23 10/15/23 08:52 08:57 08:58 WBC 5.3 RBC 4.20 Hgb 12.7 Hct 39.3 MCV 93.6 MCH 30.2 MCHC 32.3 RDW 11.8 Plt Count 198 D MPV 10.2 Immature Gran % (Auto) 0.4 Neut % (Auto) 76.3 H Lymph % (Auto) 15.0 L [place] % (Auto) 5.3 Eos % (Auto) 2.8 Baso % (Auto) 0.2 Lymph # (Auto) 0.8 L [place] # (Auto) 0.3 Eos # (Auto) 0.2 Baso # (Auto) 0.0 Abs Immat Gran (auto) 0.02 Absolute Neuts (auto) 4.1 Absolute Nucleated RBC 0.000 Nucleated RBC % (auto) 0.0 Sodium 145 Potassium 3.8 D Chloride 107 Carbon Dioxide 28 Anion Gap 14 BUN 22 H Creatinine 0.75 Estim Creat Clear Calc 55.2 Estimated GFR > 60 POC Glucose 112 Random Glucose 113 Lactic Acid Calcium 10.2 Magnesium Troponin I High Sens < 2.7 Urine Color Yellow Urine Appearance Cloudy Urine pH 6.0 Ur Specific [place] 1.010 Urine Protein Negative Urine Glucose (UA) Negative Urine Ketones Negative Urine Blood Small (1+) H Urine Nitrite Negative Ur Leukocyte Esterase Trace H Urine RBC 6-10 H Urine WBC 0-5 Ur Squamous Epith Cells 0-2 Urine Bacteria 2+ Hyaline Casts 0-2 Urine Opiates Screen Urine Fentanyl Screen Ur Barbiturates Screen Ur Phencyclidine Scrn Ur Amphetamines Screen U Benzodiazepines Scrn Urine Cocaine Screen U Marijuana (THC) Screen Ethyl Alcohol < 10 10/15/23 10/15/23 10/15/23 09:40 09:51 16:21 WBC RBC Hgb Hct MCV MCH MCHC RDW Plt Count MPV Immature Gran % (Auto) Neut % (Auto) Lymph % (Auto) [place] % (Auto) Eos % (Auto) Baso % (Auto) Lymph # (Auto) [place] # (Auto) Eos # (Auto) Baso # (Auto) Abs Immat Gran (auto) Absolute Neuts (auto) Absolute Nucleated RBC Nucleated RBC % (auto) Sodium Potassium Chloride Carbon Dioxide Anion Gap BUN Creatinine Estim Creat Clear Calc Estimated GFR POC Glucose Random Glucose Lactic Acid 0.6 Calcium Magnesium 2.1 Troponin I High Sens Urine Color Yellow Urine Appearance Clear Urine pH 6.5 Ur Specific [place] 1.015 Urine Protein Negative Urine Glucose (UA) Negative Urine Ketones Trace Urine Blood Negative Urine Nitrite Negative Ur Leukocyte Esterase Negative Urine RBC Urine WBC Ur Squamous Epith Cells Urine Bacteria Hyaline Casts Urine Opiates Screen Not Detected Urine Fentanyl Screen Not Detected Ur Barbiturates Screen Not Detected Ur Phencyclidine Scrn Not Detected Ur Amphetamines Screen Not Detected U Benzodiazepines Scrn Not Detected Urine Cocaine Screen Not Detected U Marijuana (THC) Screen Not Detected Ethyl Alcohol Imaging Radiology Impressions: ITS Impressions Head CT 10/15/23 11:21 IMPRESSION: 1. No acute intracranial process seen. 2. Right frontal encephalomalacia/cystic change similar to previous exam. 3. Moderate periventricular and central white matter diminished attenuation likely chronic small vessel ischemic changes. 4. Cerebral volume loss. 5. No significant interval change. Mental Status Exam Mental Status Exam Narrative: Appearance: casually groomed, dirt on clothes and hands, poor hygiene, in NAD Behavior: pleasant Psychomotor: no agitation or retardation noted Speech: clear, normal rate/rhythm/volume, spontaneous TP: mostly linear TC: wanting to walk home Mood: good Affect: congruent SI: none HI: none VH/AH: none Delusions: none but she does comfabulate. Insight/judgment: impaired x 2. Memory/cog: alert, not oriented to place, situation, month, year or date. Severely impaired. Medications Medications Current Medications Cefuroxime Axetil (Cefuroxime Axetil 250 Mg Tablet) 250 mg PO BID FERN Stop: 10/20/23 07:00 Allergies Allergies Allergy/AdvReac Type Severity Reaction Status Date / Time No Known Allergies Allergy Verified 04/22/23 03:44 [No Known Allergies*] Assessment & Plan Assessment & Plan (1) Major neurocognitive disorder: Status: Acute Code(s): F03.90 - Unspecified dementia, unspecified severity, without behavioral disturbance, psychotic disturbance, mood disturbance, and anxiety Plan Mrs. Gonzales is a 68 year-old woman who appears older than stated age. She has advanced dementia. She is not oriented to place, situation, month or year. She does not appear delirious. Wondering behavior appear to be related to her dementing process most likely of AD type. PLAN 1. No need for inpatient anthony psych 2. Concern as to ability to significant other to care for her as her hygiene is very poor and she has been wondering. May need placement if caregiver reports unable to care for her. if he insists, and pt returns home to significant other, that protective services form be filed for neglect. 3. Pt does NOT have capacity to make medical decisions and given severity of dementia she is not able to care for herself and would required 24/ supervision and care. Total time managing care of this patient today ____ minutes.
--- NOTE | 2023-10-15 20:12 | PC.NURSE ---
pt trying to get out of bed, camera alerted staff. pt wants to go home. RN redirected back to bed
[2023-10-15] MEDS: cefuroxime axetiL 250 MG TABLET PO (21:10)
[2023-10-15 21:54] VITALS: BP 131/90; PULSE 76; RESP 16; TEMP 37; O2SAT 99
--- NOTE | 2023-10-15 23:17 | PC.NURSE ---
pt left her bed and walked down the [place], camera did not alert staff. pt was escorted back to bed.
[2023-10-16] MEDS: Melatonin 3 MG TABLET 6 MG PO (01:50)
--- NOTE | 2023-10-16 02:02 | PC.NURSE ---
pt still awake trying to leave, PA aware. pt medicated per DEC w/ melatonin
--- NOTE | 2023-10-16 04:04 | PC.NURSE ---
pt resting comfortably with eyes closed, breathing even and unlabored. no apparent distress at this time. camera at bedside
[2023-10-16 04:41] VITALS: RESP 14
[2023-10-16 05:30] VITALS: BP 121/83; PULSE 71; RESP 16; TEMP 36.6; O2SAT 97
--- NOTE | 2023-10-16 05:47 | PC.NURSE ---
pt awake and alert, ambulated to the bathroom with staff. pt removed her IV.
[2023-10-16 07:12] VITALS: BP 124/90; PULSE 75; RESP 15; TEMP 36.8; O2SAT 97
[2023-10-16 08:04] VITALS: BP 124/90; PULSE 75; O2SAT 97
--- NOTE | 2023-10-16 09:56 | MHC.CM.ED ---
Patient remins in ER. Spoke with patient's sig other/HCP, Emiliano via telephone at [phone]. Emiliano has already been in contact with [facility] about obtaining a LUGGAGE ATTENDANT for patient. He expects [facility] to call him back at the end of September. Emiliano agreeable to referral to [facility] for fci and to [facility] to see if there is any additional help that can be provided at home. Patient was started on Namenda twice a day and Seroquel once a day as needed for aggitation by Dr Armstrong. Emiliano is afraid this isn't enough for the patient's dementia behaviors. T/W spoke with Emerita, swim coach about this. Emerita is recommending Seroquel be given twice a day scheduled. This medication should be held if the patient is overly sedated. Emiliano aware and agreeable. Patient will get a dose in the ER this morning. Emiliano will be here at 11am to transport patient home. Patient, Bea MORALES and Coby OLIVER aware. Continue to monitor for d/c needs.
[2023-10-16] MEDS: cefuroxime axetiL 250 MG TABLET PO (09:58)
--- NOTE | 2023-10-16 10:46 | PC.NURSE ---
Pt medicated per MAR, endorsing improvement in pain with PRN pain medication. VSS. RR even and unlabored bilaterally on RA. Awaiting IP bed placement. Lights dimmed for patient comfort.
[2023-10-16] MEDS: QUEtiapine Fumarate 25 MG TABLET PO (11:03)
== END 2023-10-16 12:19 | disposition home or self-care (01) ==
PROVIDERS: Physician Assistant; Emergency Provider Emergency Medicine; PCP Internal Medicine
DX: F03.90 Unspecified dementia, unspecified severity, without behavioral disturbance, psychotic disturbance, mood disturbance, and anxiety (principal); N39.0 Urinary tract infection, site not specified; R41.82 Altered mental status, unspecified; R26.2 Difficulty in walking, not elsewhere classified; Z79.899 Other long term (current) drug therapy
CPT/HCPCS: 36415; 70450; 80048; 80307; 81001; 81003; 82947; 83605; 83735; 84484; 85025; 87040; 93005; 97161; 99285

== ENCOUNTER → 2023-10-15 08:49 | Outpatient (BNV) | payer MEDICAID, SELFPAY | PROVIDERS: Emergency Provider Emergency Medicine; PCP Internal Medicine; Visit Provider Social Worker | DX: F03.90 Unspecified dementia, unspecified severity, without behavioral disturbance, psychotic disturbance, mood disturbance, and anxiety (principal) | CPT/HCPCS: 99284 ==

== ENCOUNTER → 2023-10-15 08:54 | Outpatient (BNV) | payer MEDICAID, SELFPAY | PROVIDERS: Emergency Provider Emergency Medicine; PCP Internal Medicine; Visit Provider Internal Medicine Cardiovascular Disease | DX: I44.0 Atrioventricular block, first degree (principal) | CPT/HCPCS: 93010 ==

== ENCOUNTER 2023-11-13 09:32 | Outpatient (REF) | payer MEDICAID, SELFPAY ==
[2023-11-16 07:59] LABS: TS Negative Control Passed; TS Panel A 0; TS Panel B 0; TS Positive Control Passed; TSpotTB Negative (Negative)
== END 2023-11-13 09:33 | disposition home or self-care (01) ==
LOC: HO.LAB 09:32
PROVIDERS: PCP Internal Medicine; Visit Provider Internal Medicine
DX: Z11.1 Encounter for screening for respiratory tuberculosis (principal)
CPT/HCPCS: 36415; 86481

== ENCOUNTER 2023-11-15 09:31 | Emergency (ER) | payer MEDICAID, SELFPAY ==
--- NOTE | ~2023-11-15 | CT_ITS ---
EXAMINATION: CT HEAD WITHOUT CONTRAST CLINICAL INFORMATION: Change in mental status. COMPARISON: CT head on 10/15/2023 TECHNIQUE: Contiguous axial imaging was performed from the skull base to vertex without intravenous administration of contrast. This CT examination was performed using dose optimization techniques as appropriate, variously including the following: *Automated exposure control *Adjustment of mA and/or kV according to patient size (this includes techniques or standardized protocols for targeted exams where dose is matched to indication/reason for exam; i.e. extremities or head) *Use of iterative reconstruction technique DLP: 593 mGy-cm FINDINGS: No acute intracranial hemorrhage or infarct. Encephalomalacic changes in the right frontal lobe, unchanged from prior. Patchy hypodensity involving the periventricular and deep white matter compatible with small vessel ischemic disease. Diffuse widening of the sulci with associated ex vacuo dilation of the ventricles compatible with global cerebral atrophy. No midline shift or hydrocephalus. No acute extra-axial fluid collections. The osseous structures are unremarkable. No orbital pathology. The paranasal sinuses and mastoid air cells are clear. Atherosclerotic calcifications of the bilateral carotid siphons. CT/CT head/brain wo IV con IMPRESSION: No acute intracranial pathology.
[2023-11-15 09:45] VITALS: BP 126/80; PULSE 86; RESP 17; TEMP 37.1; O2SAT 97; BMI 21.0
--- NOTE | 2023-11-15 12:05 | PC.NURSE ---
phone call from elder protective services - increased concern regarding safety in community, increased confusion - hx vascular dementia, eloping apartment, PD called frequently for missing person/well being w pt being found 5 miles away from home w no awareness as to how she got there and inappropriately clothed. charge authorizer notified, case management notified.
[2023-11-15 12:55] VITALS: BP 121/80; PULSE 61; RESP 19; TEMP 36.8; O2SAT 100
[2023-11-15 13:18] LABS: MANUAL DIFF FLAG NO
[2023-11-15 13:21] LABS: Basophils Percent Auto 0.3 % (0-2); Eosinophils Absolute Auto 0.1 X10*3/uL (0.0-0.4); Eosinophils Percent Auto 1.6 % (0-4); Hematocrit 37.8 % (37.0-47.0); Hemoglobin 12.5 g/dl (12.0-16.0); Imm Gran Abs Auto 0.01 X10*3/uL (0.00-0.03); Imm Gran Pct Auto 0.2 % (0.0-0.4); Lymphocytes Percent Auto 15.7 % (20-40); Mean Corpuscular HGB Conc 33.1 g/dl (31.0-35.0); Mean Corpuscular Hemoglobin 29.8 pg (27.0-33.0); Mean Corpuscular Volume 90.2 fL (80.0-98.0); Mean Platelet Volume 9.9 fL (9.4-12.3); Monocytes Absolute Auto 0.3 X10*3/uL (0.1-1.2); Neutrophils Absolute Auto 4.8 x10*3/uL (2.0-8.3); Neutrophils Percent Auto 77.2 % (45-73); Platelet Count 225 X10*3/uL (160-400); Red Blood Count 4.19 X10*6/uL (4.20-5.50); Red Cell Distribution Width 12.4 % (11.0-16.0); White Blood Count 6.2 X10*3/uL (4.8-10.8)
--- NOTE | 2023-11-15 13:30 | PC.NURSE ---
pt is alert, oriented to self, aware of where they live but did not know where they are. Pt has hx of dementia. per , pt has had episodes of blanking, staring into space, and not responding to him. he reports these have been happening for a couple of days in the morning. per , for about a year now, pt sometimes does not recognize him. No neuro acute neuro deficits noted - strength is equal bilaterally, face is symmetrical, eyes PERRLA. IV inserted and initial lab work drawn.
--- NOTE | 2023-11-15 13:47 | ECG_ITS ---
Test Reason : DIZZINESS Blood Pressure : / mmHG Vent. Rate : 071 BPM Atrial Rate : 071 BPM P-R Int : 210 ms QRS Dur : 092 ms QT Int : 400 ms P-R-T Axes : 086 -46 072 degrees QTc Int : 434 ms Sinus rhythm with 1st degree A-V block Left anterior fascicular block Septal infarct (cited on or before 15-OCT-2023) Abnormal ECG When compared with ECG of 15-OCT-2023 09:03, No significant change was found Referred By: Thais Richards Electronically Signed By:AVA MERCADO
[2023-11-15 14:09] VITALS: BP 124/75; PULSE 67; RESP 18; O2SAT 97
[2023-11-15 14:10] LABS: Alanine Aminotransferase 16 U/L (0-31); Albumin Level 3.9 g/dL (3.5-5.0); Alkaline Phosphatase 54 U/L (39-117); Anion Gap 12 (12-20); Aspartate Amino Transferase 21 U/L (5-31); Bilirubin Total 0.4 mg/dL (0.0-1.0); Blood Urea Nitrogen 18 mg/dL (9-16); Calcium 9.3 mg/dL (8.4-10.2); Carbon Dioxide 26 mmol/L (22-29); Chloride 107 mmol/L (96-108); Creatinine Clr Calc Pharmacy 64.9; Estimated Glomerular Filt Rate > 60; Glucose Random 99 mg/dL (60-115); Potassium 4.3 mmol/L (3.3-5.1); Sodium 141 mmol/L (135-145); Total Protein 6.7 g/dL (6.5-8.0)
[2023-11-15 14:20] LABS: Appearance Urine Clear; Color Urine Yellow; Glucose Urine UA Negative (Negative); Leukocyte Esterase Urine Negative (Negative); Nitrite Urine Negative (Negative); PH 5.5 (5.0-9.0); Specific Gravity - Urine 1.025 (1.005-1.025); Urine Blood Negative (Negative); Urine Ketones 15 mg/dL (Negative); Urine Protein Negative (Neg-Trace)
--- NOTE | 2023-11-15 14:26 | ED_ITS ---
HPI - Neuro Symptoms/Deficit General Chief Complaint: Altered Mental Status Stated Complaint: Dizziness, recent stroke (?) symptoms Time Seen by Provider: 11/15/23 13:47 Source: patient, family and old records reviewed Mode of arrival: ambulatory Limitations: other (dementia) History of Present Illness HPI Narrative: 68 yo female PMH of CVA, ICH, dementia, HLD, HTN, seizures on keppra comes in with no complain but states the last two morning she goes to get up sits on edge of bed and eyes roll back no seizure activity no incontinence no LOC but she wont' respond it lasts 5 minutes he tries to get her up and she yells at him once he gets her up she seems at her baseline for the rest of the day. Compliance with medications. Onset (ago): day(s) (2) Timing confirmed by: spouse Location: other History of same: No Severity: mild Quality: other Relieving factors: none Exacerbating factors: other (sitting up) Context: gradual onset Associated symptoms: denies other symptoms Treatments Prior to Arrival: none Related Data Home Medications Medication Instructions Recorded Confirmed aspirin 81 mg tablet,delayed 81 mg PO DAILY 12/13/22 12/13/22 release (Adult Aspirin Regimen) Previous Rx's Medication Instructions Recorded levetiracetam 250 mg tablet 750 mg (3 x 250 mg) PO BID 30 days 09/10/22 (Keppra) #180 tabs rosuvastatin 10 mg tablet 10 mg PO DAILY #90 tabs 03/07/23 metoprolol tartrate 25 mg tablet 25 mg PO DAILY #90 tabs 08/14/23 cefuroxime axetil 250 mg tablet 250 mg PO BID 6 days #12 tabs 10/16/23 food supplemt, lactose-reduced 1 ea PO BID 30 days #14,220 mL 11/05/23 0.06 gram-0.8 kcal/mL oral liquid (Boost Women) Allergies Allergy/AdvReac Type Severity Reaction Status Date / Time No Known Allergies Allergy Verified 04/22/23 03:44 [No Known Allergies*] Review of Systems 2 Review of Systems: ROS unable to be obtained due to dementia [facility] Past Medical History Source: old records reviewed Onset Date is defined in the Problem List Problems that require an onset date and time if occurred within 24 hrs of arrival to the ED Aortic Dissection and Rupture; Neurologic impairment; Cardiopulmonary Arrest; Endotracheal Intubation; Insertion or Replacement of Mechanical Circulatory Assist Device Medical History Bilateral impacted cerumen Lesion of skin of face Spastic hemiparesis of left dominant side as late effect of cerebrovascular disease Seizures Hx of intracranial hemorrhage Poor appetite Vitamin D deficiency Postoperative atrial fibrillation History of intracerebral hemorrhage without residual deficit Hyperlipidemia LDL goal <70 Severe aortic stenosis Essential hypertension History of CVA with residual deficit Surgical History History of heart valve replacement with bioprosthetic valve Status post aortic valve replacement History of cardiac catheterization Family History Family History Father Myocardial infarction Coronary artery disease Mother Coronary artery disease CVA (cerebral vascular accident) Mental health disorder Other No known health problems Social History Social History Housing: House Alcohol intake: never Patient Tobacco Use Status: Never used Tobacco Smoked in Last 30 Days: No e-Cigarette/Vaping Use: Never Used Second Hand Smoke Exposure: No Use of substances other than those prescribed or required for medical reasons: No Advance Directives: Yes Advance Directives on File: Yes Advance Directives Date on File: 10/15/23 service: No Current occupational status: retired Cognitive needs: Yes Hearing needs: Yes Vision needs: Yes Physical Exam 2 Vital Signs: Vital Signs: Last Vital Signs Temp 98.2 F 11/15/23 12:55 Pulse 67 11/15/23 14:09 Resp 18 11/15/23 14:09 BP 124/75 11/15/23 14:09 Pulse Ox 97 11/15/23 14:09 O2 Del Method Room Air 11/15/23 14:09 BMI result Body Mass Index 21.0 Appearance: Alert. Oriented to person and place. No acute distress. Eyes: Pupils equal, round and reactive to light. ENT: Pharynx normal. Neck: Normal inspection. Neck supple. CVS: Normal heart rate and rhythm. Pulses normal. Respiratory: No respiratory distress. Breath sounds normal. Abdomen: Soft and nontender. Skin: Skin warm and dry. Normal skin color. Normal skin turgor. Extremities: No lower extremity edema. No calf ttp Neuro: Oriented X to person and place moves extremities equally confused but no obvious deficits Course Course Course Narrative: case management and elder protective involved at this time can go home with with spouse Medical Decision Making Medical Decision Making [facility] Narrative: 68 yo female PMH of CVA, ICH, dementia, HLD, HTN, seizures on keppra here with c/o looking up and not responding on edge of bed in the AM but no overt seizure activity and just saw her neurologist - not postictal no tongue biting no incontinence and then normal days. She has no complaints she has baseline neuro exam at this time will obtain basic labs, EKG, UA and CT head for ICH, NIH is O Differential Diagnosis Differential Diagnoses: The differential diagnosis associated with the presentation includes UTI, atypical seizures Admission/Observation Consideration of admission/observation: Escalation of care including admission/observation considered at baseline events in AM not fully consistent with seizures would refer to her neurologist as outpatient Consult Healthcare Provider Management of the patient was discussed with: Programs Assistant (case management) Lab Data [facility] Lab Attestation statement: I reviewed the patient's lab results. 11/15/23 13:07 11/15/23 13:30 Labs: Lab Results 11/15/23 11/15/23 11/15/23 Range/Units 13:07 13:30 14:11 WBC 6.2 (4.8-10.8) X10*3/uL RBC 4.19 L (4.20-5.50) X10*6/uL Hgb 12.5 (12.0-16.0) g/dl Hct 37.8 (37.0-47.0) % MCV 90.2 (80.0-98.0) fL MCH 29.8 (27.0-33.0) pg MCHC 33.1 (31.0-35.0) g/dl RDW 12.4 (11.0-16.0) % Plt Count 225 (160-400) X10*3/uL MPV 9.9 (9.4-12.3) fL Immature Gran % (Auto) 0.2 (0.0-0.4) % Neut % (Auto) 77.2 H (45-73) % Lymph % (Auto) 15.7 L (20-40) % Worth % (Auto) 5.0 (2-11) % Eos % (Auto) 1.6 (0-4) % Baso % (Auto) 0.3 (0-2) % Lymph # (Auto) 1.0 L (1.2-4.9) X10*3/uL Worth # (Auto) 0.3 (0.1-1.2) X10*3/uL Eos # (Auto) 0.1 (0.0-0.4) X10*3/uL Baso # (Auto) 0.0 (0.0-0.2) X10*3/uL Abs Immat Gran (auto) 0.01 (0.00-0.03) X10*3/uL Absolute Neuts (auto) 4.8 (2.0-8.3) x10*3/uL Absolute Nucleated RBC 0.000 (0.0-0.012) X10*3/uL Nucleated RBC % (auto) 0.0 (0.0-0.2) /100WBC Sodium 141 (135-145) mmol/L Potassium 4.3 (3.3-5.1) mmol/L Chloride 107 (96-108) mmol/L Carbon Dioxide 26 (22-29) mmol/L Anion Gap 12 (12-20) BUN 18 H (9-16) mg/dL Creatinine 0.75 (0.5-1.4) mg/dL Estim Creat Clear Calc 64.9 Estimated GFR > 60 Random Glucose 99 (60-115) mg/dL Calcium 9.3 D (8.4-10.2) mg/dL Total Bilirubin 0.4 (0.0-1.0) mg/dL AST 21 (5-31) U/L ALT 16 (0-31) U/L Alkaline Phosphatase 54 (39-117) U/L Total Protein 6.7 (6.5-8.0) g/dL Albumin 3.9 (3.5-5.0) g/dL Urine Color Yellow Urine Appearance Clear Urine pH 5.5 (5.0-9.0) Ur Specific [place] 1.025 (1.005-1.025) Urine Protein Negative (Neg-Trace) mg/dL Urine Glucose (UA) Negative (Negative) mg/dL Urine Ketones 15 (Negative) mg/dL Urine Blood Negative (Negative) Urine Nitrite Negative (Negative) Ur Leukocyte Esterase Negative (Negative) Independent Interpretation I performed an independent interpretation of an: EKG and CT Scan (normal ) Interpretation: Rate: 71 Rhythm: NSR 1st degree avb [place]: left Normal P waves. 1st degree avb Normal QRS complex. ST T wave : nonspecific ST T wave chagnes in I and aVL qTC: 434 prior studies: no change from priors The study has been interpreted contemporaneously by me. . Radiology Impression Discussion of test interpretation with radiology: I have reviewed the radiologist's reading. Independent Historian Clinical information obtained from an independent historian. History obtained from or confirmed by: Spouse External Record Review External record reviewed: Inpatient record, Office record and Outpatient record Discharge Plan Discharge Clinical Impression: Change in mental state Qualifiers: Altered mental status type: transient alteration of awareness Qualified Code(s): R40.4 - Transient alteration of awareness Patient Disposition: Home, Self-Care Instructions: Altered Mental Status (ED), Cognitive Disorders after Traumatic Brain Injury (ED) Additional Instructions: return for worsening symptoms, seizures, confusion from baseline, fevers. I would consult her neurologist about ths as well labs reassuring, no UTI and CT head normal no signs of bleeding. Prescriptions: No Action levetiracetam [Keppra] 250 mg tablet 750 mg PO BID 30 Days Qty: 180 0RF metoprolol tartrate 25 mg tablet 25 mg PO DAILY Qty: 90 3RF Boost Women 0.06 gram- 0.8 kcal/mL liquid 1 ea PO BID 30 Days Qty: 92412 2RF cefuroxime axetil 250 mg tablet 250 mg PO BID 6 Days Qty: 12 0RF rosuvastatin 10 mg tablet 10 mg PO DAILY Qty: 90 3RF aspirin [Adult Aspirin Regimen] 81 mg tablet,delayed release (DR/EC) 81 mg PO DAILY
[2023-11-15 15:11] VITALS: BP 154/84; PULSE 68; RESP 13; TEMP 36.5; O2SAT 98
[2023-11-15 15:57] LABS: Troponin-I High Sensitivity 3.3 ng/L (<3.5-17.0)
--- NOTE | 2023-11-15 15:58 | MHC.CM.ED ---
Received consult for assessment of d/c needs: Pt w/memory impairment issues and not a reliable historian. Call placed to pt's HCP/skilled nursing customer care team coach, Pete who states pt has a history of elopement and wandering. He states pt can complete ADL's with cueing but will refuse to shower. Pt has recently purchased door alarms and has a lock wire attached to the front door. He also signed pt up for an elder day care program in [place]. Pete states he wants pt to return home and feels he can ensure her safety. Received call from Mavis Delgado at [facility]: she states concerns w/pt's elopement. She would like pt evaluated for competency: Pt has Pete listed ast her HCP (on file) ED provider states pt is medically cleared and can return to home: plan reviewed w/pt who nodded her head in affirmation. Pete to transport pt to home.
--- NOTE | 2023-11-15 16:05 | MHC.EDTECH ---
Pt has gotten out of bed three times and is trying to leave. The pt seems confused as they were asking where they were even after they were told that they were at [facility] ED. The pt did not seem to understand that they were waiting on test results before they could leave.
== END 2023-11-15 16:24 | disposition home or self-care (01) ==
PROVIDERS: Emergency Provider Emergency Medicine; PCP Internal Medicine
DX: R40.4 Transient alteration of awareness (principal); F03.90 Unspecified dementia, unspecified severity, without behavioral disturbance, psychotic disturbance, mood disturbance, and anxiety; I10 Essential (primary) hypertension; E78.5 Hyperlipidemia, unspecified; I69.30 Unspecified sequelae of cerebral infarction; Z79.02 Long term (current) use of antithrombotics/antiplatelets; Z79.82 Long term (current) use of aspirin; Z79.899 Other long term (current) drug therapy
CPT/HCPCS: 36415; 70450; 80053; 81003; 84484; 85025; 93005; 99284

== ENCOUNTER → 2023-11-15 13:47 | Outpatient (BNV) | payer MEDICAID, SELFPAY | PROVIDERS: Emergency Provider Emergency Medicine; PCP Internal Medicine; Visit Provider Internal Medicine | DX: I44.0 Atrioventricular block, first degree (principal) | CPT/HCPCS: 93010 ==

== ENCOUNTER → 2023-11-28 09:52 | Outpatient (REF) | payer MEDICAID, SELFPAY ==
--- NOTE | 2023-11-28 09:57 | CA_ITS ---
Transthoracic Echocardiogram Amended Patient (Last, First, Middle): Carrie Gonzales M Gender: Female Date of : 1955 Age: 68 Procedure Date: 11/28/2023 Procedure Type: Transthoracic Echocardiogram Location: OP Height: 157.48 cm Weight: 61.24 kg BSA: 1.62 m2 Heart Rate: 79 bpm BP: 132 / 84 mmHg [place] Laborer: SB Referring MD: Levon Reardon MD [place] Presser: Levon Reardon MD Symptoms: Z95.2 - Presence of prosthetic heart valve Study Quality: Adequate ECG Rhythm: Sinus Conclusions: - 1. Normal LV ejection fraction of 60 65% with impaired relaxation filling pattern 2. Normally function bioprosthetic aortic valve with mean gradient of 11 mmHg 3. Normal RV systolic pressure 4. Mildly dilated ascending aorta 5. No pericardial effusion Findings Left Ventricle Normal left ventricular size, thickness, and systolic function. The visually estimated ejection fraction is between 60-65%. Spectral Doppler is indicative of an impaired relaxation filling pattern. E/E prime ratio is between 8 and 15 consistent with indeterminate filling pressures. There is moderate septal asymmetric hypertrophy. Right Ventricle Normal right ventricular cavity size and systolic function. Atria The left atrium is normal in size. Interatrial shunt cannot be excluded. The right atrium is normal in size. Aortic Valve A bioprosthetic aortic valve is present. The prosthetic aortic valve appears to be functioning normally. The mean gradient is 11 mmHg. Mitral Valve There is mild anterior and posterior mitral leaflet thickening. There is trace mitral valve regurgitation. There is no mitral valve stenosis. Pulmonic Valve The pulmonic valve was not well visualized. Tricuspid Valve Normal tricuspid valve structure. There is trace tricuspid valve regurgitation. The right ventricular systolic pressure is normal. The right ventricular systolic pressure is 19 mmHg. Normal right atrial pressure. There is no evidence of pulmonary hypertension. Great Vessels The pulmonary artery was not well visualized. There is mild dilatation of the ascending aorta measuring 3.80 cm. Venous The inferior vena cava is normal in size and collapses greater than 50% with inspiration. Pericardium/Pleural There is no evidence of pericardial effusion. Prior Study Comparison No significant change compared to prior study dated: 11/27/2022. delay in reporting due to technical issues Measurements 2D Linear Measurements IVSd: 1.59 0.6-0.9/0.6-1.0 cm LVIDd: 4.26 3.9-5.3/4.2-5.9 cm LVIDd Index: 2.63 2.4-3.2/2.2-3.1 cm/m2 LVIDs: 3.37 2.0-3.6 cm LVPWd: 0.76 0.7-1.1 cm LA Diam: 3.80 2.7-3.8/3.0-4.0 cm LAIDs Index: 2.35 1.5-2.3 cm/m2 LV Mass: 220.09 67-162/88-224 g LV Mass Index: 135.86 43-95/49-115 g/m2 LVOT Diam: 1.90 3.0+(-)1.3 cm 2D Volumes LA Vol: 21.80 2D Systolic Function EF 4C: 67.60 >55% EF 2C: 62.30 >55% EF BiP: 65.70 >55% Mitral Valve MV Pk E: 0.51 MV PK A: 0.81 MV Decel Time: 170.00 E/A: 0.60 E'Lateral: 8.59 E'Medial: 5.11 E/E' Med: 10.00 E/E' Lat: 5.90 PHT: 50.00 MVA PHT: 4.40 Decel [place]: 2.99 Aortic Valve AoV Pk Suman: 2.22 AoV Mn Suman: 1.59 AoV VTI: 0.43 AoV Pk Grad: 20.00 Aov Mn Grad: 11.00 [place] Cont.VTI: 1.25 LVOT LVOT Pk Suman: 0.90 LVOT Mn Suman: 0.66 LVOT VTI: 0.19 LVOT Pk Grad: 3.00 LVOT Mn Grad: 2.00 LVOT Diam: 1.90 LVOT Area: 2.84 Diastolic Function MV Pk E: 0.51 MV Pk A: 0.81 E/A: 0.60 E'Medial: 5.11 E/E' Med: 10.00 E' Laterial: 8.59 E/E' Lat: 5.90 Right Ventricle TAPSE (mm): 10.90 Tricuspid Valve TR Pk Suman: 2.03 TR Pk Grad: 16.00 RA Press: 3.00 RVSP: 19.00 Great Vessels Aorta Sinus of Valsalva: 3.00 2.0-3.5 cm Ao Asc: 3.80 2.1-3.4 cm Pulmonary Valve PV Pk Suman: 0.87 Peak PV Grad: 3.00 TX Pk Suman: 1.72 Updated in Other Vendor System with Status of Final Levon Reardon MD electronically signed on 11/29/2023 2:35:40 PM with status of Final
== END ==
LOC: HO.CARD 09:52
PROVIDERS: PCP Internal Medicine; Visit Provider Internal Medicine Cardiovascular Disease
DX: Z95.2 Presence of prosthetic heart valve (principal)
CPT/HCPCS: 93306

== ENCOUNTER → 2023-11-28 09:57 | Outpatient (BNV) | payer MEDICAID, SELFPAY | PROVIDERS: PCP Internal Medicine; Visit Provider Internal Medicine Cardiovascular Disease | DX: I34.89 Other nonrheumatic mitral valve disorders (principal); Z95.2 Presence of prosthetic heart valve | CPT/HCPCS: 93306 ==

== ENCOUNTER 2023-11-29 09:01 | Outpatient (AMB) | payer MEDICAID, SELFPAY ==
[2023-11-29 09:06] VITALS: BP 110/80; PULSE 80; O2SAT 99; BMI 21.5
--- NOTE | 2023-11-29 09:06 | MHC.PC.OV ---
Vital Signs 11/29/23 09:06 Height 5 ft 6 in Weight 133 lb BMI 21.5 BP 110/80 Blood Pressure Location Rt brachial Position Sitting Pulse 80 Pulse Source Pulse Oximeter Pulse Oximetry (%) 99 Oxygen Delivery Method Room Air Intake Visit Reasons: [facility] on 10/15/23 mental episode Intake Note: Pt is here today for a HDF [facility] mental episodes Allergies No Known Allergies [No Known Allergies*] Allergy (Verified 11/29/23 10:03) Medication List - Last Reconciled 11/29/23 by Sadia Marquez MD aspirin (Adult Aspirin Regimen) 81 mg PO DAILY divalproex 500 mg PO BID food supplemt, lactose-reduced (Boost Women) 1 ea PO BID 30 days memantine 10 mg PO BID metoprolol tartrate 25 mg PO DAILY quetiapine 50 mg PO BID rosuvastatin 10 mg PO DAILY Tobacco use date assessed: 11/29/23 Fall risk assessment: No Falls in past year Last assessed Fall Risk: 11/29/23 Dental Screening Dental Screen Date: 11/29/23 Did you have a dental visit in the last 12 months?: No Was dental information given to patient?: No HPI [facility] on 10/15/23 mental episode HPI Details 68-year-old lady with hypertension, defect oral dementia / Lewy body dementia and complex partial seizure disorder, here today accompanied by , for follow-up. She was seen at the ER at [facility] 10/15/2023 for? Seizure episodes. Needs states that she was lying in bed , when she stiffened up and had her eyes rolling upwards. This lasted only several seconds and resolved spontaneously. She is unable to recognize her , and frequently wanders. Patient's had to resort put wires on GERD or handles will prevent patient from leaving the house at times. She is now needing constant supervision. She has a ASSEMBLY LINE SUPERVISOR that goes to there have to assist in showering and bathing once a weak and has weekly nurse visit. She has been seen by Dr. Armstrong her neurologist 11/13/2023, who continued her on divalproex sodium 100 mg 1 tablet twice a day, and increased her dose of memantine to 10 mg 1 tablet taken twice a day and decrease quetiapine fumarate tablet to 50 mg 1 tablet twice a day. Patient's 's also enquiring whether she can get vaccinated against the flu and get a COVID booster and shingles vaccine.. [facility], [facility] Medical History (Updated 11/29/23 @ 10:04 by Sadia Marquez MD) Lewy body dementia Bilateral impacted cerumen Lesion of skin of face Spastic hemiparesis of left dominant side as late effect of cerebrovascular disease Seizures Hx of intracranial hemorrhage Poor appetite Vitamin D deficiency Postoperative atrial fibrillation History of intracerebral hemorrhage without residual deficit Hyperlipidemia LDL goal <70 Severe aortic stenosis Essential hypertension History of CVA with residual deficit Surgical History History of heart valve replacement with bioprosthetic valve Status post aortic valve replacement History of cardiac catheterization Family History Father Myocardial infarction Coronary artery disease Mother Coronary artery disease CVA (cerebral vascular accident) Mental health disorder Other No known health problems Social History Housing: House Alcohol intake: never Patient Tobacco Use Status: Never used Tobacco e-Cigarette/Vaping Use: Never Used Second Hand Smoke Exposure: No Advance Directives Date on File: 10/15/23 service: No Current occupational status: retired Cognitive needs: Yes Hearing needs: Yes Vision needs: Yes Questionnaire Thrive Questionnaire Date Thrive assessed: 11/08/22 AUDIT C Alcohol Use Questionnaire (AUDIT-C) 1. How often do you have a drink containing alcohol?: Never Total Score: 0 BRE-7 AMB Questionnaire BRE-7 Date BRE - 7 assessed: 11/08/22 Source: Developed by Drs. Amrit Reyes, Yulissa Lucero, Karel Tamez and colleagues, with an educational ronald from [employer]. Review of Systems Const Denies headache(s) ENT Reports as per HPI, Denies otalgia, Denies headache(s), Reports disequilibrium and Reports tinnitus Card Reports no additional complaints and Denies dyspnea Resp Denies chest congestion, Denies cough, Denies dyspnea and Denies wheezing GI Reports no additional complaints Reports no additional complaints Musc Reports no additional complaints Neuro Reports as per HPI, Reports behavioral changes, Denies headache(s) and Reports disequilibrium Psych Reports behavioral changes Endo Reports no additional complaints Sahil/Lymph Reports no additional complaints Aller/Immun Denies seasonal rhinorrhea and Denies wheezing Physical exam (Primary Care) Vital Signs: Last Vital Signs Pulse 80 11/29/23 09:06 BP 110/80 11/29/23 09:06 Pulse Ox 99 11/29/23 09:06 Oxygen Delivery Method Room Air 11/29/23 09:06 BMI result Body Mass Index 21.5 Tobacco/Smoking Status: Tobacco use Status Tobacco use date assessed 11/29/23 11/29/23 09:14 Patient Tobacco Use Status Never used Tobacco 11/29/23 09:14 e-Cigarette/Vaping Use Never Used 11/29/23 09:14 Thrive Assessment: Date of Thrive Assessment Date Thrive assessed 11/08/22 11/29/23 09:14 Const General: comfortable, no acute distress, alert, awake and well groomed Nutritional Appearance: average body habitus Orientation/consciousness: Other orientation findings (Able to answer simple question, but unable to recognize ) HENMT Head: Yes normocephalic Ears: external ears normal General nose exam: Normal external nose present Face and sinus: Yes face symmetric Mouth: Normal oral and palatal mucosa present, oropharynx normal and moist mucous membranes Eyes General: appearance normal, both eyes and all related structures Neck Neck: Yes full ROM, Yes no lymphadenopathy and Yes supple Resp Auscultation: clear to auscultation bilaterally Cardio Other: S1-S2 present regular rate and rhythm GI Palpation (GI): Soft to palpation, nontender, no guarding and no masses Auscultation: normal bowel sounds Neuro General: gait normal, tone normal, moves all extremities, no focal motor deficits and CN's II-XI intact bilaterally Cognition (Neuro): abnormal cognition (confused ) Gait exam (Neuro): Normal gait present Extrem General: Yes full ROM, Yes no joint enlargement, Yes no clubbing, cyanosis or edema and Yes normal gait Psych Appearance: grossly normal and well kempt Mental Status: mental status grossly normal Speech and movement: Normal speech and movement present Affect: Blunted affect present Attitude: cooperative Assessment and Plan Assessment & Plan (1) Major neurocognitive disorder: Code(s): F03.90 - Unspecified dementia, unspecified severity, without behavioral disturbance, psychotic disturbance, mood disturbance, and anxiety Plan: Followed by Neurology, on memantine and quetiapine (2) Seizures: Code(s): R56.9 - Unspecified convulsions Plan: Currently on divalproex (3) Vitamin D deficiency: Code(s): E55.9 - Vitamin D deficiency, unspecified Plan: Vitamin-D level ordered as well as vitamin B12 folic acid (4) Status post aortic valve replacement: Comment: 23 mm Inspiris valve, 01/09/21 Code(s): Z95.2 - Presence of prosthetic heart valve Plan: Continue aspirin 81 mg daily (5) Hyperlipidemia LDL goal <70: Code(s): E78.5 - Hyperlipidemia, unspecified Plan: Currently on rosuvastatin 10 mg daily, fasting lipid panel and liver enzyme ordered (6) Essential hypertension: Code(s): I10 - Essential (primary) hypertension Plan: Currently on metoprolol tartrate 25 mg once a day (7) History of CVA with residual deficit: Code(s): I69.30 - Unspecified sequelae of cerebral infarction (8) Lewy body dementia: Code(s): G31.83 - Neurocognitive disorder with Lewy bodies; F02.80 - Dementia in other diseases classified elsewhere, unspecified severity, without behavioral disturbance, psychotic disturbance, mood disturbance, and anxiety Plan: Currently on memantine and quetiapine, followed by Neurology Orders: Orders Lipid Panel 11/29/23 E55.9 - Vitamin D deficiency, unspecified, E78.5 - Hyperlipidemia, unspecified, F03.90 - Unspecified dementia, unspecified severity, without behavioral disturbance, psychotic disturbance, mood disturbance, and anxiety, I10 - Essential (primary) hypertension, I69.30 - Unspecified sequelae of cerebral infarction, R56.9 - Unspecified convulsions, Z95.2 - Presence of prosthetic heart valve, Z95.3 - Presence of xenogenic heart valve TSH reflex Free T4 11/29/23 E55.9 - Vitamin D deficiency, unspecified, E78.5 - Hyperlipidemia, unspecified, F03.90 - Unspecified dementia, unspecified severity, without behavioral disturbance, psychotic disturbance, mood disturbance, and anxiety, I10 - Essential (primary) hypertension, I69.30 - Unspecified sequelae of cerebral infarction, R56.9 - Unspecified convulsions, Z95.2 - Presence of prosthetic heart valve, Z95.3 - Presence of xenogenic heart valve Vitamin B12 and Folate 11/29/23 E55.9 - Vitamin D deficiency, unspecified, E78.5 - Hyperlipidemia, unspecified, F03.90 - Unspecified dementia, unspecified severity, without behavioral disturbance, psychotic disturbance, mood disturbance, and anxiety, I10 - Essential (primary) hypertension, I69.30 - Unspecified sequelae of cerebral infarction, R56.9 - Unspecified convulsions, Z95.2 - Presence of prosthetic heart valve, Z95.3 - Presence of xenogenic heart valve Vitamin D 25-OH Total 11/29/23 E55.9 - Vitamin D deficiency, unspecified, E78.5 - Hyperlipidemia, unspecified, F03.90 - Unspecified dementia, unspecified severity, without behavioral disturbance, psychotic disturbance, mood disturbance, and anxiety, I10 - Essential (primary) hypertension, I69.30 - Unspecified sequelae of cerebral infarction, R56.9 - Unspecified convulsions, Z95.2 - Presence of prosthetic heart valve, Z95.3 - Presence of xenogenic heart valve Coding Level of Care Code Est Pt Level 4 (49665) Diagnoses Major neurocognitive disorder F03.90 Seizures R56.9 Vitamin D deficiency E55.9 Status post aortic valve replacement Z95.2 Hyperlipidemia LDL goal <70 E78.5 Essential hypertension I10 History of CVA with residual deficit I69.30 Lewy body dementia G31.83; F02.80
== END 2023-11-29 12:02 | disposition home or self-care (01) ==
PROVIDERS: PCP Internal Medicine; Visit Provider Internal Medicine
DX: R56.9 Unspecified convulsions (principal); G31.83 Neurocognitive disorder with Lewy bodies; F02.80 Dementia in other diseases classified elsewhere, unspecified severity, without behavioral disturbance, psychotic disturbance, mood disturbance, and anxiety; F03.90 Unspecified dementia, unspecified severity, without behavioral disturbance, psychotic disturbance, mood disturbance, and anxiety; E55.9 Vitamin D deficiency, unspecified; Z95.2 Presence of prosthetic heart valve; E78.5 Hyperlipidemia, unspecified; I10 Essential (primary) hypertension; I69.30 Unspecified sequelae of cerebral infarction
CPT/HCPCS: 99214

== ENCOUNTER 2023-12-04 07:53 | Outpatient (REF) | payer MEDICAID, SELFPAY ==
[2023-12-04 13:09] LABS: Cholesterol 171 mg/dL (<200); HDL Cholesterol 77 mg/dL (>40); LDL Cholesterol Calculated 82 mg/dL (<100); Triglycerides 60 mg/dL (<150)
[2023-12-04 13:11] LABS: Folate 11.3 ng/mL (> or = 4.0); Vitamin B12 511 pg/mL (200-900)
[2023-12-04 13:13] LABS: TSH reflex Free T4 5.32 uIU/mL (0.32-4.0); Vitamin D 25-OH Total 51.2 ng/mL (>30)
[2023-12-04 14:22] LABS: Free T4 (Free Thyroxine) 0.98 ng/dL (0.71-1.85)
== END 2023-12-04 07:54 | disposition home or self-care (01) ==
LOC: HO.HMGCLDS 07:53
PROVIDERS: PCP Internal Medicine; Visit Provider Internal Medicine
DX: F03.90 Unspecified dementia, unspecified severity, without behavioral disturbance, psychotic disturbance, mood disturbance, and anxiety (principal); R56.9 Unspecified convulsions; E55.9 Vitamin D deficiency, unspecified; E78.5 Hyperlipidemia, unspecified; I69.30 Unspecified sequelae of cerebral infarction; I10 Essential (primary) hypertension; Z95.2 Presence of prosthetic heart valve; Z95.3 Presence of xenogenic heart valve
CPT/HCPCS: 36415; 80061; 82306; 82607; 82746; 84439; 84443

== ENCOUNTER 2023-12-24 09:23 | Outpatient (AMB) | payer MEDICAID, SELFPAY ==
[2023-12-24 09:34] VITALS: BP 120/70; BMI 21.0
--- NOTE | 2023-12-24 09:34 | A.OFFVIS_ITS ---
Intake Vital Signs 12/24/23 09:34 Height 5 ft 6 in Weight 130 lb 1.164 oz BMI 21.0 BP 120/70 Blood Pressure Location Lt brachial Position Sitting Intake Visit Reasons: 1 YEAR FUP AFTER ECHO Intake Note: 1 year follow-up after echo has not been eating much dementia is progressing had ekg in [place] [employer] Required: No Senior Production Manager: Senior Production Manager Present Accompanied by: Family/Other Allergies No Known Allergies [No Known Allergies*] Allergy (Verified 11/29/23 10:03) Medication List - Last Reconciled 12/24/23 by Levon Reardon MD aspirin (Adult Aspirin Regimen) 81 mg PO DAILY divalproex 500 mg PO BID food supplemt, lactose-reduced (Boost Women) 1 ea PO BID 30 days memantine 10 mg PO BID metoprolol tartrate 25 mg PO DAILY quetiapine 50 mg PO BID rosuvastatin 10 mg PO DAILY HPI HPI Comments History of Present Illness Details Carrie comes for follow-up. She is accompanied by her . She has had progressive cognitive decline related to Lewy body dementia. No cardiac complaints. Recent echocardiogram shows normal function of the bioprosthetic aortic valve. No chest pain or shortness of breath. No prolonged palpitations. Takes all her medications. [facility] Medical History Lewy body dementia Bilateral impacted cerumen Lesion of skin of face Spastic hemiparesis of left dominant side as late effect of cerebrovascular disease Seizures Hx of intracranial hemorrhage Poor appetite Vitamin D deficiency Postoperative atrial fibrillation History of intracerebral hemorrhage without residual deficit Hyperlipidemia LDL goal <70 Severe aortic stenosis Essential hypertension History of CVA with residual deficit Surgical History History of heart valve replacement with bioprosthetic valve Status post aortic valve replacement History of cardiac catheterization Family History Father Myocardial infarction Coronary artery disease Mother Coronary artery disease CVA (cerebral vascular accident) Mental health disorder Other No known health problems Social History Housing: House Alcohol intake: never Patient Tobacco Use Status: Never used Tobacco e-Cigarette/Vaping Use: Never Used Second Hand Smoke Exposure: No Advance Directives Date on File: 10/15/23 service: No Current occupational status: retired Cognitive needs: Yes Hearing needs: Yes Vision needs: Yes Review of Systems Const Denies chills, Denies fatigue, Denies fever(s), Denies frequent falls, Denies weakness, Denies weight gain and Denies weight loss ENT Denies dizziness Card Denies chest pain, Denies leg edema, Denies lightheadedness, Denies palpitations, Denies dyspnea, Denies dyspnea on exertion, Denies orthopnea and Denies other (loss of consciousness) Resp Denies cough, Denies dyspnea and Denies dyspnea on exertion GI Denies hematochezia and Denies change in stool character Musc Denies abnormal gait, Denies muscle weakness, Denies numbness, Denies radiating pain into limb and Denies tingling Neuro Denies abnormal gait, Denies dizziness, Denies frequent falls, Denies numbness, Denies tingling and Denies weakness Endo Denies fatigue and Denies palpitations Physical Exam Vital Signs: Last Vital Signs BP 120/70 12/24/23 09:34 BMI result Body Mass Index 21.0 Const General: cooperative, comfortable, no acute distress, alert and awake Nutritional Appearance: average body habitus Orientation/consciousness: patient oriented x3 Limitations: ambulation with cane Neck Neck: Yes trachea midline, Yes supple and Yes no JVD Chest Chest palpation & inspection: normal inspection of the chest and other (Sternotomy wound is healing well) Resp Effort & Inspection: normal respiratory effort Auscultation: no crackles, no rales and diminished lung sounds Cardio Jugular venous distension: no JVD Palpation: normal PMI Rate: regular rate Rhythm: regular rhythm Heart sounds: S1 normal heart sound present, S2 normal heart sound present and Murmur heart sound present systolic early, decrescendo and crescendo Skin General skin exam: no rashes or lesions noted Neuro General: patient oriented x3 and no focal motor deficits Extrem General: Yes no clubbing, cyanosis or edema Psych Appearance: grossly normal Assessment & Plan Assessment & Plan (1) History of heart valve replacement with bioprosthetic valve: Comment: Needs SBE prophylaxis Code(s): Z95.3 - Presence of xenogenic heart valve Plan: Patient bioprosthetic aortic valve replacement for severe aortic stenosis. This is working well clinically as well as by echocardiogram. Continue aspirin lifelong. Continue risk factor modification with target goal LDL less than 100 mg/dL. Continue exercise as tolerated. Blood pressure is well optimized. SBE prophylaxis as per ACC/[facility] guidelines. Her major issue is going to be neuro cognitive related to her dementia. Will follow up in the clinic in 1 year's time, sooner p.r.n.. Thank you for allowing me to partake in her care Coding Level of Care Code Est Pt Level 3 (81928) Diagnoses History of heart valve replacement with bioprosthetic valve Z95.3
== END 2023-12-24 10:04 | disposition home or self-care (01) ==
PROVIDERS: Visit Provider Internal Medicine Cardiovascular Disease
DX: Z95.3 Presence of xenogenic heart valve (principal)
CPT/HCPCS: 99213

== ENCOUNTER → 2023-12-24 09:23 | Outpatient (BNVA) | payer MEDICAID, SELFPAY | PROVIDERS: Visit Provider Internal Medicine Cardiovascular Disease | DX: Z95.3 Presence of xenogenic heart valve (principal) | CPT/HCPCS: 99212 ==

== ENCOUNTER 2024-01-08 11:20 | Outpatient (AMB) | payer MEDICAID, SELFPAY ==
--- NOTE | 2024-01-08 12:21 | AM.OFFWIN_ITS ---
Intake Vital Signs 01/08/24 12:22 Height 5 ft 6 in Weight 129 lb BMI 20.8 BP 112/80 Blood Pressure Location Lt brachial Position Sitting Pulse 82 Pulse Source Pulse Oximeter Temp 97.1 F Temp Source Temporal Artery Scan Pulse Oximetry (%) 96 Oxygen Delivery Method Room Air Intake Visit Reasons: EP Stomach Issues Intake Note: pt is here today for stomach issues started 1 month ago Patient Tobacco Use Status: Never used Tobacco Allergies No Known Allergies [No Known Allergies*] Allergy (Verified 01/08/24 12:26) Do you need a note to return to daycare/school/sports/work: No HPI HPI Comments History of Present Illness Details 68-year-old female brought in today by h er with a change of mental status. The patient has dementia and he relates she was somewhat combative this morning and requests be evaluated for a UTI. He does relate that she had to episodes of lower abdominal pain which has resolved today. He also requests a flu shot to be given today so that she can be admitted to adult daycare [facility] Medical History Lewy body dementia Bilateral impacted cerumen Lesion of skin of face Spastic hemiparesis of left dominant side as late effect of cerebrovascular disease Seizures Hx of intracranial hemorrhage Poor appetite Vitamin D deficiency Postoperative atrial fibrillation History of intracerebral hemorrhage without residual deficit Hyperlipidemia LDL goal <70 Severe aortic stenosis Essential hypertension History of CVA with residual deficit Surgical History History of heart valve replacement with bioprosthetic valve Status post aortic valve replacement History of cardiac catheterization Family History Father Myocardial infarction Coronary artery disease Mother Coronary artery disease CVA (cerebral vascular accident) Mental health disorder Other No known health problems Social History Housing: House Alcohol intake: never Patient Tobacco Use Status: Never used Tobacco e-Cigarette/Vaping Use: Never Used Second Hand Smoke Exposure: No Advance Directives Date on File: 10/15/23 service: No Current occupational status: retired Cognitive needs: Yes Hearing needs: Yes Vision needs: Yes Review of Systems Const All systems reviewed & are unremarkable except as noted in HPI and below Physical Exam Vital Signs: Last Vital Signs Temp 97.1 F 01/08/24 12:22 Pulse 82 01/08/24 12:22 BP 112/80 01/08/24 12:22 Pulse Ox 96 01/08/24 12:22 Oxygen Delivery Method Room Air 01/08/24 12:22 BMI result Body Mass Index 20.8 HEENT Head: Yes normal to inspection, Yes normocephalic and Yes atraumatic Ears: hearing grossly normal bilaterally General nose exam: Normal external nose present GI Palpation (GI): Soft to palpation and Tenderness to palpation present (GI) (Nontender to palpation in lower quadrants) Auscultation: normal bowel sounds Office Procedures Flu Questionnaire Does the patient have a severe egg allergy?: No Does the patient have severe life threatening allergies?: No Does the patient have a fever or illness today?: No Has the patient ever had Guillain-[place] Syndrome?: No Has the patient ever had any past reaction to a flu shot?: No Assessment & Plan Assessment & Plan (1) Mental status alteration: Code(s): R41.82 - Altered mental status, unspecified Plan: The patient was given a had to take home to collect the urine sample. He will bring him back to the office for urinalysis and culture. She was given a flu shot today. 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
[2024-01-08 12:22] VITALS: BP 112/80; PULSE 82; TEMP 36.2; O2SAT 96; BMI 20.8
== END 2024-01-08 14:03 | disposition home or self-care (01) ==
PROVIDERS: PCP Internal Medicine; Visit Provider Physician Assistant Medical
DX: Z23 Encounter for immunization (principal)
CPT/HCPCS: 90471; 90686; 99213

== ENCOUNTER 2024-01-10 09:30 | Outpatient (REF) | payer MEDICAID, SELFPAY ==
[2024-01-10 13:37] LABS: Appearance Urine Clear; Color Urine Yellow; Glucose Urine UA Negative (Negative); Leukocyte Esterase Urine Small (1+) (Negative); Nitrite Urine Negative (Negative); PH 6.5 (5.0-9.0); UMIC TRIGGER UACC YES; Urine Blood Negative (Negative); Urine Ketones 15 mg/dL (Negative); Urine Protein Negative (Neg-Trace)
[2024-01-10 13:47] LABS: Bacteria Urine Trace (None Seen); RBC Urine 0-2 /HPF (0-2); UACC Culture Trigger YES
== END 2024-01-10 09:31 | disposition home or self-care (01) ==
LOC: HO.HMGCLNP 09:30
PROVIDERS: PCP Internal Medicine; Visit Provider Nurse Practitioner Family
DX: R39.9 Unspecified symptoms and signs involving the genitourinary system (principal)
CPT/HCPCS: 81001; 87086

== ENCOUNTER 2024-02-24 08:01 | Outpatient (AMB) | payer MEDICAID, SELFPAY ==
--- NOTE | 2024-02-24 08:03 | AM.OFFWIN_ITS ---
Intake Vital Signs 02/24/24 08:04 Height 5 ft 6 in Weight 130 lb 4 oz BMI 21.0 BP 110/72 Blood Pressure Location Rt brachial Position Sitting Pulse 93 Pulse Source Pulse Oximeter Temp 98.2 F Temp Source Oral Pulse Oximetry (%) 96 Oxygen Delivery Method Room Air Intake Visit Reasons: EP Nose bleed Intake Note: Pt presents to the office today for c/o a nose bleed that has been happening for the past 2 nights. Patient Tobacco Use Status: Never used Tobacco Allergies No Known Allergies [No Known Allergies*] Allergy (Verified 02/24/24 08:21) Medication List - Last Reconciled 02/24/24 by Zac Mccray MD aspirin (Adult Aspirin Regimen) 81 mg PO DAILY divalproex 500 mg PO BID food supplemt, lactose-reduced (Boost Women) 1 ea PO BID 30 days memantine 10 mg PO BID metoprolol tartrate 25 mg PO DAILY quetiapine 50 mg PO BID rosuvastatin 10 mg PO DAILY HPI EP Nose bleed HPI Details 68-year-old female presents to the [facility] for a sick visit. She is accompanied by her . Patient has baseline dementia and does not communicate. is speaking on her behalf. reports she is having intermittent bleeding from the nose for the last 2 days. Left nostril only. Symptoms are mostly early in the morning. Currently there is no bleeding. [facility] Medical History Lewy body dementia Bilateral impacted cerumen Lesion of skin of face Spastic hemiparesis of left dominant side as late effect of cerebrovascular disease Seizures Hx of intracranial hemorrhage Poor appetite Vitamin D deficiency Postoperative atrial fibrillation History of intracerebral hemorrhage without residual deficit Hyperlipidemia LDL goal <70 Severe aortic stenosis Essential hypertension History of CVA with residual deficit Surgical History History of heart valve replacement with bioprosthetic valve Status post aortic valve replacement History of cardiac catheterization Family History Father Myocardial infarction Coronary artery disease Mother Coronary artery disease CVA (cerebral vascular accident) Mental health disorder Other No known health problems Social History Housing: House Alcohol intake: never Patient Tobacco Use Status: Never used Tobacco e-Cigarette/Vaping Use: Never Used Second Hand Smoke Exposure: No Advance Directives Date on File: 10/15/23 service: No Current occupational status: retired Cognitive needs: Yes Hearing needs: Yes Vision needs: Yes Physical Exam Vital Signs: Last Vital Signs Temp 98.2 F 02/24/24 08:04 Pulse 93 02/24/24 08:04 BP 110/72 02/24/24 08:04 Pulse Ox 96 02/24/24 08:04 Oxygen Delivery Method Room Air 02/24/24 08:04 BMI result Body Mass Index 21.0 Const General: cooperative and healthy appearing Nutritional Appearance: well nourished Orientation/consciousness: patient oriented x3 Limitations: no limitations HEENT Other: Nose: Left nostril, the nasal passage is caked with blood. No polyp seen. Dry skin. Head: Yes normal to inspection Eyes General: appearance normal, both eyes and all related structures Neck Neck: Yes normal visual inspection Chest Chest palpation & inspection: normal palpation of entire chest wall Resp Effort & Inspection: normal respiratory effort Neuro General: patient oriented x3 Assessment & Plan Assessment & Plan (1) Epistaxis: Code(s): R04.0 - Epistaxis Plan: Due to the drying of the skin. Flonase has been prescribed. Patient's was educated on how to manually. Bleeding when it happens. 15 minutes spent on demonstrating the to techniques. Coding Level of Care Code Est Pt Level 4 (43218) Diagnoses Epistaxis R04.0
[2024-02-24 08:04] VITALS: BP 110/72; PULSE 93; TEMP 36.8; O2SAT 96; BMI 21.0
== END 2024-02-24 08:38 | disposition home or self-care (01) ==
PROVIDERS: PCP Internal Medicine; Visit Provider Internal Medicine
DX: R04.0 Epistaxis (principal)
CPT/HCPCS: 99214

== ENCOUNTER 2024-03-16 07:11 | Emergency (ER) | payer MEDICAID, SELFPAY ==
--- NOTE | ~2024-03-16 | CT_ITS ---
EXAMINATION: CT HEAD WITHOUT CONTRAST CLINICAL INFORMATION: Blunt head trauma without loss of consciousness, significant head injury and posttraumatic headache. COMPARISON: CT scan of brain on 11/15/2023 TECHNIQUE: Contiguous axial imaging was performed from the skull base to vertex without intravenous administration of contrast. This CT examination was performed using dose optimization techniques as appropriate, variously including the following: *Automated exposure control *Adjustment of mA and/or kV according to patient size (this includes techniques or standardized protocols for targeted exams where dose is matched to indication/reason for exam; i.e. extremities or head) *Use of iterative reconstruction technique DLP: 559.70 mGy-cm FINDINGS: Ventricles, sulci and cisterns are markedly dilated. Bilateral frontal and parietal subcortical and deep white matter shows extensive confluent abnormal decreased in attenuation. A chronic cerebral infarction is seen in right parasagittal superior frontal lobe. 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 There is no midline shift, no abnormal intra- or extra- axial fluid accumulation. Reyes and white matter differentiation is normal. Bone window images show no evidence of skull fracture. Bilateral ethmoid sinuses show mild mucosal thickening. CT/CT head/brain wo IV con IMPRESSION: 1. Unchanged marked age related cerebral atrophy, ventriculomegaly, extensive confluent ischemic white matter disease. 2. Unchanged chronic right parasagittal frontal cerebral infarction and right superior frontal porencephalic cyst. 3. No intracranial hemorrhage or skull fracture is seen. 4. No evidence of space occupying lesion could be found. 5. The current plain CT scan of the brain shows no diagnostic evidence of acute cerebral infarction.
--- NOTE | ~2024-03-16 | CT_ITS ---
EXAMINATION: CT CERVICAL SPINE WITHOUT CONTRAST CLINICAL INFORMATION: Cervical spine injury and pain COMPARISON: None available. TECHNIQUE: Multiple 2.0 mm axial images were obtained from base of skull to T1 levels without IV contrast enhancement. Sagittal and coronal 2.0 mm bone window images were reconstructed from axial image data. This CT examination was performed using dose optimization techniques as appropriate, variously including the following: *Automated exposure control *Adjustment of mA and/or kV according to patient size (this includes techniques or standardized protocols for targeted exams where dose is matched to indication/reason for exam; i.e. extremities or head) *Use of iterative reconstruction technique DLP: 242.60 mGy-cm FINDINGS: C1/C2: Bony structures are intact with normal alignment. There is no spinal stenosis. C2/C3: Bony structures are intact with normal alignment. There is no spinal stenosis. Bilateral C2/C3 neuroforamina are patent. Bilateral apophyseal joints are intact with normal alignment. C3/C4: Bony structures are intact with normal alignment. There is no spinal stenosis. Bilateral C3/C4 neuroforamina are patent. Bilateral apophyseal joints are intact with normal alignment. C4/C5: Bony structures are intact with normal alignment. There is no spinal stenosis. Bilateral C4/C5 neuroforamina are patent. Bilateral apophyseal joints are intact with normal alignment. C5/C6: Bony structures are intact with normal alignment. There is moderate decrease in intervertebral disc height. Posterior bridging syndesmophytes are present. There is no spinal stenosis. Bilateral C5/C6 neuroforamina are moderately stenosed. Bilateral apophyseal joints are intact with normal alignment. C6/C7: Bony structures are intact with normal alignment. There is mild decrease in intervertebral disc height. Posterior bridging syndesmophytes are present. There is no spinal stenosis. There is mild asymmetric left C6/C7 neuroforaminal stenosis. Bilateral apophyseal joints are intact with normal alignment. C7/T1: Bony structures are intact with normal alignment. There is no spinal stenosis. Bilateral C7/T1 neuroforamina are patent. Bilateral apophyseal joints are intact with normal alignment. Multilevel bilateral apophyseal joint and uncovertebral joint osteoarthritis with loss of joint space, sclerosis, facet hypertrophy and osteophytosis are seen. A right lower thyroid hypodense nodule is seen measuring 1.3 x 0[address]/CT cervical spine wo IV con IMPRESSION: 1. No evidence of acute fracture or dislocation. 2. Multilevel degenerative changes of the cervical spine as described above. 3. Right lower thyroid nodule is found. Incidental thyroid nodules up to 1.5 cm in diameter in patients 35 years of age or older are statistically overwhelmingly not clinically significant and no followup imaging recommended. Reference: J Am Kenny Radiol 2015 b; 12(2): 143-50.
--- NOTE | ~2024-03-16 | XR_ITS ---
EXAMINATION: XR CHEST CLINICAL INFORMATION: Mechanical fall, chest injury and pain COMPARISON: None available. TECHNIQUE: Frontal view of the chest was obtained. FINDINGS: vascularity. LUNGS: Lungs are clear. No pneumothorax is seen. BONES: Bony skeleton is intact. Median sternotomy wire loops are present. XR/XR chest 1V IMPRESSION: 1. Unchanged no radiographic signs of acute cardiopulmonary process. 2. Unchanged status post median sternotomy.
[2024-03-16 07:27] VITALS: BP 115/84; PULSE 76; RESP 16; TEMP 36.9; O2SAT 97; BMI 25.0
--- NOTE | 2024-03-16 07:41 | ECG_ITS ---
Test Reason : fall Blood Pressure : / mmHG Vent. Rate : 067 BPM Atrial Rate : 067 BPM P-R Int : 232 ms QRS Dur : 084 ms QT Int : 374 ms P-R-T Axes : 057 -45 071 degrees QTc Int : 395 ms Sinus rhythm with 1st degree A-V block with Premature atrial complexes Left anterior fascicular block Nonspecific ST and T wave abnormality Abnormal ECG When compared with ECG of 15-NOV-2023 14:26, Premature atrial complexes are now Present Criteria for Septal infarct are no longer Present Referred By: Thais Richards Electronically Signed By:Atul Lindquist
--- NOTE | 2024-03-16 07:43 | ED_ITS ---
HPI - Fall General Chief Complaint: Fall Stated Complaint: falling Time Seen by Provider: 03/16/24 07:42 Source: patient and old records reviewed Mode of arrival: ambulatory Limitations: no limitations History of Present Illness ED Provider: IRMA HPI Narrative: 68 yo female with PMH of lewy body dementia, seizures, L sided hemiparesis after CVA, AVR, HTN, HLD here with c/o increase and falls and partner brought her here requesting more help and case management services. No trauma from falls reported. Not on thinners. The patient has no complaints. Possible trip and fall. Patient has had increase in falls over the past 2 days. Her partner dropped her off in triage and went to work. Told RN he turns his back and she is falling. The patient tells me she is not sure. MD complaint: fall Onset (ago): day(s) (2) Fall from: standing Fall witnessed: yes, by family Place fall occurred: home Loss of consciousness: none Prolonged down time: unclear Symptoms prior to fall: none Context: tripped/slipped Severity: mild Associated symptoms (after fall): denies Related Data Home Medications ?Medication ?Instructions ?Recorded ?Confirmed aspirin 81 mg tablet,delayed 81 mg PO DAILY 12/13/22 12/24/23 release (Adult Aspirin Regimen) divalproex 500 mg tablet,delayed 500 mg PO BID 11/29/23 12/24/23 release memantine 10 mg tablet 10 mg PO BID 11/29/23 12/24/23 quetiapine 50 mg tablet 50 mg PO BID 11/29/23 12/24/23 Previous Rx's ?Medication ?Instructions ?Recorded metoprolol tartrate 25 mg tablet 25 mg PO DAILY #90 tabs 08/14/23 food supplemt, lactose-reduced 1 ea PO BID 30 days #14,220 mL 11/05/23 0.06 gram-0.8 kcal/mL oral liquid (Boost Women) fluticasone propionate 50 1 spray intranasal DAILY #9.9 mL 02/24/24 mcg/actuation nasal spray,suspension (Flonase Allergy Relief) rosuvastatin 10 mg tablet 10 mg PO DAILY #90 tabs 03/13/24 Allergies Allergy/AdvReac Type Severity Reaction Status Date / Time No Known Allergies Allergy Verified 03/16/24 07:27 [No Known Allergies*] Review of Systems 2 Review of Systems: ROS unable to be obtained due to altered mental status [facility] Past Medical History Source: old records reviewed Medical History Lewy body dementia Bilateral impacted cerumen Lesion of skin of face Spastic hemiparesis of left dominant side as late effect of cerebrovascular disease Seizures Hx of intracranial hemorrhage Poor appetite Vitamin D deficiency Postoperative atrial fibrillation History of intracerebral hemorrhage without residual deficit Hyperlipidemia LDL goal <70 Severe aortic stenosis Essential hypertension History of CVA with residual deficit Surgical History History of heart valve replacement with bioprosthetic valve Status post aortic valve replacement History of cardiac catheterization Family History Family History Father Myocardial infarction Coronary artery disease Mother Coronary artery disease CVA (cerebral vascular accident) Mental health disorder Other No known health problems Social History Social History Housing: House Alcohol intake: never Patient Tobacco Use Status: Never used Tobacco Smoked in Last 30 Days: No e-Cigarette/Vaping Use: Never Used Second Hand Smoke Exposure: No Use of substances other than those prescribed or required for medical reasons: No Advance Directives: Yes Advance Directives on File: Yes Advance Directives Date on File: 10/15/23 Do you have a plan to hurt others: No Plan service: No Current occupational status: retired Cognitive needs: Yes Hearing needs: Yes Vision needs: Yes Physical Exam 2 Vital Signs: Vital Signs: Last Vital Signs Temp 98.2 F 03/16/24 13:59 Pulse 89 03/16/24 13:59 Resp 16 03/16/24 13:59 BP 126/88 03/16/24 13:59 Pulse Ox 96 03/16/24 13:59 O2 Del Method Room Air 03/16/24 13:59 BMI result Body Mass Index 25.0 Appearance: Alert. Oriented X2. No acute distress. Eyes: Pupils equal, round and reactive to light. ENT: Pharynx normal. Neck: Normal inspection. Neck supple. CVS: Normal heart rate and rhythm. Pulses normal. Respiratory: No respiratory distress. Breath sounds normal. Abdomen: Soft and nontender. Skin: Skin warm and dry. Normal skin color. Normal skin turgor. Extremities: 1+ ankle pitting L sided lower extremity edema. Neuro: Oriented X 2 L sided hemiparesis. Medical Decision Making Medical Decision Making MDM Narrative: 68 yo female with PMH of lewy body dementia, seizures, L sided hemiparesis after CVA, AVR, HTN, HLD here with c/o increase in falls over 2 days at this time she has no obvious trauma or complaints looks a little disheveled and has very flat affect will obtain labs, EKG, CT head/cspine, UA and once medically evaluated and cleared will refer to PT/CM. Differential Diagnosis Differential Diagnoses: The differential diagnosis associated with the presentation includes falls, worsening dementia, UTI Admission/Observation Consideration of admission/observation: Escalation of care including admission/observation considered physician observation started at 1052am pending PT/CM for falls and concern for safety at home Consult Healthcare Provider Management of the patient was discussed with: Seat Cover Maker Lab Data [facility] Lab Attestation statement: I reviewed the patient's lab results. 03/16/24 08:04 03/16/24 08:04 Labs: Lab Results 03/16/24 03/16/24 03/16/24 Range/Units 08:04 13:55 14:10 WBC 5.7 (4.8-10.8) X10*3/uL RBC 3.95 L (4.20-5.50) X10*6/uL Hgb 12.3 (12.0-16.0) g/dl Hct 37.1 (37.0-47.0) % MCV 93.9 (80.0-98.0) fL MCH 31.1 (27.0-33.0) pg MCHC 33.2 (31.0-35.0) g/dl RDW 13.1 (11.0-16.0) % Plt Count 144 L D (160-400) X10*3/uL MPV 9.8 (9.4-12.3) fL Immature Gran % (Auto) 0.2 (0.0-0.4) % Neut % (Auto) 72.5 (45-73) % Lymph % (Auto) 14.7 L (20-40) % [place] % (Auto) 12.0 H (2-11) % Eos % (Auto) 0.4 (0-4) % Baso % (Auto) 0.2 (0-2) % Lymph # (Auto) 0.8 L (1.2-4.9) X10*3/uL [place] # (Auto) 0.7 (0.1-1.2) X10*3/uL Eos # (Auto) 0.0 (0.0-0.4) X10*3/uL Baso # (Auto) 0.0 (0.0-0.2) X10*3/uL Abs Immat Gran (auto) 0.01 (0.00-0.03) X10*3/uL Absolute Neuts (auto) 4.1 (2.0-8.3) x10*3/uL Absolute Nucleated RBC 0.000 (0.0-0.012) X10*3/uL Nucleated RBC % (auto) 0.0 (0.0-0.2) /100WBC Sodium 142 (135-145) mmol/L Potassium 4.2 (3.3-5.1) mmol/L Chloride 105 (96-108) mmol/L Carbon Dioxide 28 (22-29) mmol/L Anion Gap 13 (12-20) BUN 22 H (9-16) mg/dL Creatinine 0.71 (0.5-1.4) mg/dL Estim Creat Clear Calc 66.3 Estimated GFR > 60 Random Glucose 96 (60-115) mg/dL Calcium 9.6 (8.4-10.2) mg/dL Magnesium 2.0 (1.6-2.6) mg/dL Total Bilirubin 0.6 (0.0-1.0) mg/dL Direct Bilirubin 0.3 (0.0-0.5) mg/dL AST 35 H (5-31) U/L ALT 15 (0-31) U/L Alkaline Phosphatase 47 (39-117) U/L Total Creatine Kinase 678 H (26-140) U/L Troponin I High Sens 8.7 D (<3.5-17.0) ng/L Total Protein 6.2 L (6.5-8.0) g/dL Albumin 3.7 (3.5-5.0) g/dL Lipase 19 (8-78) U/L TSH 4.82 H (0.32-4.0) uIU/mL Free T4 0.92 (0.71-1.85) ng/dL Urine Color Yellow Urine Appearance Clear Urine pH 7.5 (5.0-9.0) Ur Specific [place] 1.015 (1.005-1.025) Urine Protein Negative (Neg-Trace) mg/dL Urine Glucose (UA) Negative (Negative) mg/dL Urine Ketones Trace (Negative) mg/dL Urine Blood Negative (Negative) Urine Nitrite Negative (Negative) Ur Leukocyte Esterase Negative (Negative) Valproic Acid 37.8 L (50.0-100.0) mcg/mL COVID-19 (ROGERS) Negative (Negative) COVID-19 Clin Com See Note Independent Interpretation I performed an independent interpretation of an: EKG, Plain X-Ray (no pneumonia) and CT Scan (no trauma) Interpretation: Rate: 67 Rhythm: NSR with 1st degree AVB [place]: left Normal P waves. 1st degree Normal QRS complex. ST T wave : no GERMAINE, nonspecific ST T wave changes lateral leads qTC: 395 prior studies: no change The study has been interpreted contemporaneously by me. . Radiology Impression Discussion of test interpretation with radiology: I have reviewed the radiologist's reading. External Record Review External record reviewed: Inpatient record Discharge Plan Discharge Clinical Impression: Lewy body dementia, Recurrent falls Patient Disposition: Still a Patient Prescriptions: No Action metoprolol tartrate 25 mg tablet 25 mg PO DAILY Qty: 90 3RF Boost Women 0.06 gram- 0.8 kcal/mL liquid 1 ea PO BID 30 Days Qty: 63386 2RF rosuvastatin 10 mg tablet 10 mg PO DAILY Qty: 90 1RF divalproex 500 mg tablet,delayed release (DR/EC) 500 mg PO BID memantine 10 mg tablet 10 mg PO BID quetiapine 50 mg tablet 50 mg PO BID fluticasone propionate [Flonase Allergy Relief] 50 mcg/actuation spray,suspension 1 spray intranasal DAILY Qty: 9.9 1RF Rx Instructions: administer into each nostril aspirin [Adult Aspirin Regimen] 81 mg tablet,delayed release (DR/EC) 81 mg PO DAILY Print Language: Uzbek
[2024-03-16 08:08] LABS: MANUAL DIFF FLAG NO
[2024-03-16 08:10] LABS: Basophils Percent Auto 0.2 % (0-2); Eosinophils Percent Auto 0.4 % (0-4); Hematocrit 37.1 % (37.0-47.0); Hemoglobin 12.3 g/dl (12.0-16.0); Imm Gran Abs Auto 0.01 X10*3/uL (0.00-0.03); Imm Gran Pct Auto 0.2 % (0.0-0.4); Lymphocytes Absolute Auto 0.8 X10*3/uL (1.2-4.9); Lymphocytes Percent Auto 14.7 % (20-40); Mean Corpuscular HGB Conc 33.2 g/dl (31.0-35.0); Mean Corpuscular Hemoglobin 31.1 pg (27.0-33.0); Mean Corpuscular Volume 93.9 fL (80.0-98.0); Mean Platelet Volume 9.8 fL (9.4-12.3); Monocytes Absolute Auto 0.7 X10*3/uL (0.1-1.2); Neutrophils Absolute Auto 4.1 x10*3/uL (2.0-8.3); Neutrophils Percent Auto 72.5 % (45-73); Platelet Count 144 X10*3/uL (160-400); Red Blood Count 3.95 X10*6/uL (4.20-5.50); Red Cell Distribution Width 13.1 % (11.0-16.0); White Blood Count 5.7 X10*3/uL (4.8-10.8)
[2024-03-16 08:22] LABS: Valproate 37.8 mcg/mL (50.0-100.0)
[2024-03-16 08:31] LABS: Alanine Aminotransferase 15 U/L (0-31); Albumin Level 3.7 g/dL (3.5-5.0); Alkaline Phosphatase 47 U/L (39-117); Anion Gap 13 (12-20); Aspartate Amino Transferase 35 U/L (5-31); Bilirubin Direct 0.3 mg/dL (0.0-0.5); Bilirubin Total 0.6 mg/dL (0.0-1.0); Blood Urea Nitrogen 22 mg/dL (9-16); Calcium 9.6 mg/dL (8.4-10.2); Carbon Dioxide 28 mmol/L (22-29); Chloride 105 mmol/L (96-108); Creatinine Clr Calc Pharmacy 66.3; Estimated Glomerular Filt Rate > 60; Glucose Random 96 mg/dL (60-115); Lipase 19 U/L (8-78); Potassium 4.2 mmol/L (3.3-5.1); Sodium 142 mmol/L (135-145); Total Protein 6.2 g/dL (6.5-8.0); Troponin-I High Sensitivity 8.7 ng/L (<3.5-17.0)
[2024-03-16 08:46] LABS: TSH reflex Free T4 4.82 uIU/mL (0.32-4.0)
[2024-03-16 09:32] LABS: Free T4 (Free Thyroxine) 0.92 ng/dL (0.71-1.85)
[2024-03-16 10:41] VITALS: BP 150/88; PULSE 74; RESP 16; TEMP 36.7; O2SAT 95
--- NOTE | 2024-03-16 13:52 | MHC.CM.ED ---
Received case management consult from Dr Richards. Patient came to the ER due to falls. Work up is negative so far. Physical therapy eval completed. LTC is recommended. Patient has a history of dementia. Spoke with patient's sig other/HCP, Pete, via telephone at [phone].Patient lives with Pete, ambulates independently and had VNA services until about 6 weeks ago. Patient and Pete have been together for over 40 years. Pete has been trying to care for patient at home, however due to increased dementia symptoms (confusion, insomnia, attempted elopement) and increased falls, it appears Pete is no longer able to care for patient. Pete is agreeable to LTC placement. Patient has been to [facility] in the past. Pete does not want a referral there. Patient has also been to [facility] in the past. Pete would prefer facility in [place] but is aware referral might need to be broadcasted further due to 4 facilities closing. Referral sent to all facitlies contracted with [facility] within 25 miles of patient's home. Patient has Information Assurance but not Medicare. HCP verified to be on file. Continue to monitor for d/c needs.
[2024-03-16 13:59] VITALS: BP 126/88; PULSE 89; RESP 16; TEMP 36.8; O2SAT 96
[2024-03-16 14:15] LABS: COVID-19 Test Negative (Negative); IDNOW Serial# 08D9AD1C
[2024-03-16 14:18] LABS: Appearance Urine Clear; Color Urine Yellow; Glucose Urine UA Negative (Negative); Leukocyte Esterase Urine Negative (Negative); Nitrite Urine Negative (Negative); PH 7.5 (5.0-9.0); Specific Gravity - Urine 1.015 (1.005-1.025); Urine Blood Negative (Negative); Urine Ketones Trace mg/dL (Negative); Urine Protein Negative (Neg-Trace)
[2024-03-16 15:56] VITALS: BP 124/83; PULSE 79; RESP 16; TEMP 36.2; O2SAT 96
--- NOTE | 2024-03-16 15:57 | MHC.EDTECH ---
tHIS PCT ASSUMED CARE OF PATIENT AT 1500 ,VITALS TAKEN ,PATIENT WAS GIVEN A BED BATH AND BEDDING CHANGE ,PATIENT COMFORTABLE ,HAD SOME JUICE TO DRINK .
--- NOTE | 2024-03-16 17:02 | MHC.CM.ED ---
[facility] not yet [facility]. CM will follow for safe discharge plan.
--- NOTE | 2024-03-16 20:29 | MHC.EDTECH ---
PATIENT WAS ASSISTED UNTO BEDPAN ,PATIENT VOID ,CARE GIVEN ,FOR DINNER ,PATIENT ATE 100 % OF MEAL AND DRANK 240 ML FLUIDS .
--- NOTE | 2024-03-16 21:09 | PC.NURSE ---
Patient unsure of medications that she takes on a daily basis. Unable to get a hold of family member to go over med list.
[2024-03-16 21:52] VITALS: BP 134/93; PULSE 86; RESP 16; TEMP 36.9; O2SAT 95
--- NOTE | 2024-03-17 03:28 | PC.NURSE ---
pt resting in bed at this time. bed was changed after bed bowers used to urinate. pt washed and changed. camera in place. call luisana w/in reach
[2024-03-17 04:59] VITALS: BP 124/82; PULSE 66; RESP 14; O2SAT 96
[2024-03-17 06:00] VITALS: BP 128/84; PULSE 77; TEMP 36.8; O2SAT 95
--- NOTE | 2024-03-17 08:33 | PC.NURSE ---
Resumed care of patient at 0700, she is currently resting comfortably at this time, call lieberman within reach
--- NOTE | 2024-03-17 08:55 | PC.NURSE ---
PA aware that home medications are not ordered at this time
--- NOTE | 2024-03-17 11:51 | PC.NURSE ---
patient found to be incontinent of urine, patient cleaned up, new pads and linens. patient given a warm blanket. camera monitor in place for safety
[2024-03-17 12:18] VITALS: BP 117/68; PULSE 71; TEMP 37.1; O2SAT 95
--- NOTE | 2024-03-17 12:48 | MHC.CM.ED ---
Addendum entered by Aditi Chase 03/17/24 14:09: No response from [facility]. Spoke to patient's sig other/HCP, Pete. Pete accepts bed at [facility]. MDS completed, sent to [facility] and [facility]. Waiting to hear when patient can transfer to facility. Original Note: Patient remains in ER. [facility] [place] is able to offer a bed. Waiting to hear from [facility] if they can offer a bed. Continue to monitor for d/c needs.
[2024-03-17 14:00] VITALS: BP 132/73; PULSE 75; TEMP 36.5; O2SAT 97
--- NOTE | 2024-03-17 18:16 | MHC.CM.ED ---
Addendum entered by Brittany Willams 03/17/24 18:19: [facility] [place] unable to offer a bed at this time. Addendum entered by Brittany Willams 03/17/24 18:18: Referrals placed within 50 miles, no bed offers yet. Original Note: MH cannot covert to LTC because patient is not a citizen of the [place]. Pt is a [place] Citizen. Family verifies. State her green card is lost. Facility is needing a payor source. Previous CM reported above and Iram Pabon is aware.
--- NOTE | 2024-03-17 20:10 | PC.NURSE ---
this rn assumed care of pt, pt resting in hospital stretcher, no acute distress noted. pt has camera in place, bed alarm on and educated business administration teacher lieberman use.
--- NOTE | 2024-03-17 20:25 | PC.NURSE ---
pt moved into [address] at this time, camera in place for safety, chair alarm in place.
[2024-03-17 22:26] VITALS: BP 116/76; PULSE 71; RESP 14; TEMP 36.4; O2SAT 97
[2024-03-18 00:23] VITALS: BP 119/78; PULSE 74; RESP 18; TEMP 36.4; O2SAT 95
--- NOTE | 2024-03-18 05:38 | MHC.EDTECH ---
checked patient for incontinence at 5:38. patient was dry. In addition i asked if she needed to use the bedpan patient declined
--- NOTE | 2024-03-18 08:16 | PHA.MEDREC ---
Addendum entered by Bacilio Cuevas [facility] 03/18/24 09:41: said that she takes quetiapine 50 mg bid and he gives her an extra 50 mg daily if she is agitated. Original Note: Pharmacy Consult ? Medication Reconciliation Pharmacy has completed the medication reconciliation. spoke with over the phone to confirm medications.
--- NOTE | 2024-03-18 08:22 | MHC.CM.ED ---
Addendum entered by Aditi Chase 03/18/24 08:35: Spoke with Pete via telephone. T/W explained patient's [facility] will not be able to be transitioned to intermediate teacher care because patient is not an [place] citizen. Patient is [place]. Also explained Pete would need to privately pay for LTC or patient would have to return home. Pete is unable to privately pay for LTC. Pete agreeable to referral for VNA and referral for [facility] for more assistance at home. Pete will be here around 9am to tranpsort patient home. Patient, Julio MORALES and Lala GLASGOW aware. Original Note: Patient remains in ER. Attempted to notify Pete that [facility] is no longer able to offer a bed via telephone at [phone]. Pete did not answer. Was not able to leave a voicemail. Will attempt to call again. Continue to monitor for d/c needs.
[2024-03-18 09:25] VITALS: BP 146/87; PULSE 75; RESP 16; TEMP 36.8; O2SAT 100
== END 2024-03-18 09:33 | disposition home or self-care (01) ==
PROVIDERS: Emergency Provider Emergency Medicine; PCP Internal Medicine
DX: G31.83 Neurocognitive disorder with Lewy bodies (principal); R29.6 Repeated falls; R60.0 Localized edema; I10 Essential (primary) hypertension; E78.5 Hyperlipidemia, unspecified; Z95.3 Presence of xenogenic heart valve; Z86.73 Personal history of transient ischemic attack (TIA), and cerebral infarction without residual deficits; Z79.02 Long term (current) use of antithrombotics/antiplatelets; Z79.82 Long term (current) use of aspirin; Z79.899 Other long term (current) drug therapy; Z11.52 Encounter for screening for COVID-19
CPT/HCPCS: 36415; 70450; 71045; 72125; 80048; 80076; 80164; 81003; 82550; 83690; 83735; 84439; 84443; 84484; 85025; 87635; 93005; 97162; 99285

== ENCOUNTER → 2024-03-16 07:41 | Outpatient (BNV) | payer MEDICAID, SELFPAY | PROVIDERS: Emergency Provider Emergency Medicine; PCP Internal Medicine; Visit Provider Internal Medicine Cardiovascular Disease | DX: I44.0 Atrioventricular block, first degree (principal); I49.1 Atrial premature depolarization | CPT/HCPCS: 93010 ==

== ENCOUNTER 2024-12-18 13:14 | Emergency (ER) | payer MEDICAID, SELFPAY ==
--- NOTE | 2024-12-18 13:36 | ED_ITS ---
HPI - General Adult General Chief complaint: Dyspnea Stated complaint: SOB S/P POSS ASPIRATION, 90% ON NRB, AFIB PER EMS Time Seen by Provider: 12/18/24 13:36 History of Present Illness ED Provider: Jenn RIVERA narrative: The patient is a 69-year-old female with a history of Lewy body dementia. She stays at the [facility]. She has a MOLST form indicating that she is DNR/DNI. It also indicates that she should not be sent to the hospital. Today her was visiting and was trying to encourage her to take fluids when she seemed to have a significant choking episode and became short of breath with poor oxygen saturations. The decision was made to send her to the emergency room. On arrival here the patient continues to have an oxygen requirement. She is nonverbal. She has apparently nonverbal at baseline. She seems quite ill. I was able to contact the patient's who is the healthcare proxy. He confirms that the patient has condition is very severe and that the primary goal is comfort. Related Data Home Medications ?Medication ?Instructions ?Recorded ?Confirmed aspirin 81 mg tablet,delayed 81 mg PO DAILY 12/13/22 03/18/24 release (Adult Aspirin Regimen) divalproex 500 mg tablet,delayed 500 mg PO BID 11/29/23 03/18/24 release memantine 10 mg tablet 10 mg PO BID 11/29/23 03/18/24 quetiapine 50 mg tablet 50 mg PO BID 11/29/23 03/18/24 quetiapine 50 mg tablet 50 mg PO DAILY PRN Agitation 03/18/24 03/18/24 Previous Rx's ?Medication ?Instructions ?Recorded metoprolol tartrate 25 mg tablet 25 mg PO DAILY #90 tabs 08/14/23 fluticasone propionate 50 1 spray intranasal DAILY #9.9 mL 02/24/24 mcg/actuation nasal spray,suspension (Flonase Allergy Relief) rosuvastatin 10 mg tablet 10 mg PO DAILY #90 tabs 03/13/24 Allergies Allergy/AdvReac Type Severity Reaction Status Date / Time No Known Allergies Allergy Verified 12/18/24 13:46 [No Known Allergies*] Review of Systems Review of Systems: Yes Unobtainable due to mental status PMFSH Past Medical History Medical History Lewy body dementia Bilateral impacted cerumen Lesion of skin of face Spastic hemiparesis of left dominant side as late effect of cerebrovascular disease Seizures Hx of intracranial hemorrhage Poor appetite Vitamin D deficiency Postoperative atrial fibrillation History of intracerebral hemorrhage without residual deficit Hyperlipidemia LDL goal <70 Severe aortic stenosis Essential hypertension History of CVA with residual deficit Surgical History History of heart valve replacement with bioprosthetic valve Status post aortic valve replacement History of cardiac catheterization Family History Family History Father Myocardial infarction Coronary artery disease Mother Coronary artery disease CVA (cerebral vascular accident) Mental health disorder Other No known health problems Social History Social History Housing: House Alcohol intake: never Patient Tobacco Use Status: Never used Tobacco e-Cigarette/Vaping Use: Never Used Second Hand Smoke Exposure: No Advance Directives: Yes Advance Directives on File: Yes Advance Directives Date on File: 10/15/23 service: No Current occupational status: retired Cognitive needs: Yes Hearing needs: Yes Vision needs: Yes Physical Exam ED Vital Signs: Vital Signs - 24 hr 12/18/24 13:38 12/18/24 14:18 12/18/24 15:07 Temperature 98.4 F Pulse Rate 103 H 101 H 104 H Respiratory Rate 20 23 H 20 Blood Pressure 120/81 124/83 Pulse Oximetry 90 L 99 Oxygen Delivery Method Oxymask Non-Rebreather Mask Oxygen Flow Rate 15 12/18/24 15:27 12/18/24 16:17 Temperature 99.1 F Pulse Rate 104 H 104 H Respiratory Rate 23 H 20 Blood Pressure 124/83 113/80 Pulse Oximetry 98 100 Oxygen Delivery Method Non-Rebreather Mask Non-Rebreather Mask Oxygen Flow Rate 15 15 BMI result Body Mass Index 18.0 Const Other: The patient is a chronically ill-appearing 69-year-old who was not responsive to verbal stimuli. HENMT Other: No facial asymmetry. The patient's mouth is open and she seems to be a primarily a mouth breather. Airway seems clear. Eyes Other: Eyes are closed. When she opens her eyes her pupils are equal. Conjunctivae are clear Neck Other: No obvious JVD. Resp Other: Rhonchorous breath sounds bilaterally. Cardio Rate: tachycardic Rhythm: regular rhythm Heart sounds: S1 normal heart sound present and S2 normal heart sound present GI Other: Abdomen is soft and seems nontender. Skin Other: Skin is pale and dry Neuro Other: The patient is unresponsive to verbal stimuli. She opens her eyes to tactile stimuli. She is nonverbal. Extremities seem somewhat rigid. Extrem Other: Extremities are somewhat atrophied. No peripheral edema. Medications Administered Discontinued Medications Generic Name Dose Route Start Last Admin Trade Name Freq PRN Reason Stop Dose Admin Albuterol/Ipratropium 3 ml 12/18/24 13:55 12/18/24 14:16 Albuterol/Iprat 2.5/0.5mg 3 Ml Ampul.Neb INHALE 12/18/24 13:56 3 ml ONCE ONE Administration Medical Decision Making Medical Decision Making [facility] Narrative: The patient is a very chronically ill 69-year-old with Lewy body dementia who lives at a longterm. She had a choking episode while taking fluids today and now has a significant oxygen requirement. She looks quite chronically ill and her MOLST form indicates that she should be transferred to the hospital only for comfort. I was able to contact the patient's who was also the healthcare proxy. He confirms that the goal of care in this case is comfort. Therefore we are not doing any acute interventions in the emergency room other than supplying oxygen. I spoke to the about having the patient put on hospice care which, given the patient's oxygen requirement today, I think is appropriate. I discussed this with the who was in agreement. I consulted case management for assistance in signing the patient onto hospice. The plan would be to have the patient return to her nursing facility where she is well known. She has been there for 6 months. Case management was unfortunately unable to make all arrangements today and therefore the patient will be kept in the emergency room overnight with hopes to get the patient to her nursing facility tomorrow on a hospice designation. The patient will be placed in physician observation until this can occur. Discharge Plan Discharge Clinical Impression: Shortness of breath, Lewy body dementia, Low oxygen saturation Patient Disposition: Still a Patient Prescriptions: No Action metoprolol tartrate 25 mg tablet 25 mg PO DAILY Qty: 90 3RF rosuvastatin 10 mg tablet 10 mg PO DAILY Qty: 90 1RF quetiapine 50 mg Tablet 50 mg PO DAILY PRN (Reason: Agitation) divalproex 500 mg tablet,delayed release (DR/EC) 500 mg PO BID memantine 10 mg tablet 10 mg PO BID quetiapine 50 mg tablet 50 mg PO BID fluticasone propionate [Flonase Allergy Relief] 50 mcg/actuation spray,suspension 1 spray intranasal DAILY Qty: 9.9 1RF Rx Instructions: administer into each nostril aspirin [Adult Aspirin Regimen] 81 mg tablet,delayed release (DR/EC) 81 mg PO DAILY Print Language: Faroese
[2024-12-18 13:38] VITALS: BP 102/60; BP 120/81; PULSE 103; PULSE 120; RESP 20; TEMP 36.9; O2SAT 90; O2SAT 95; BMI 18.0
--- NOTE | 2024-12-18 13:57 | PC.NURSE ---
patient currently on oxymask 15L, satting 88%. patient opens eyes to verbal/noxious stimuli and tracks with eyes, does not follow commands. resp equal but shallow. patient noted to be in afib on the monitor, rate low 100s. patient changed into hospital attire. patient noted to be DNR/DNI/juanito not transfer. patient appears to be comfortable, awaiting family response from ED attending.
[2024-12-18] MEDS: Albuterol/Iprat 2.5/0.5MG 3 ML AMPUL.NEB INHALE (14:16)
[2024-12-18 14:18] VITALS: PULSE 101; RESP 23; O2SAT 91
[2024-12-18 15:07] VITALS: BP 124/83; PULSE 104; RESP 20; O2SAT 99
--- NOTE | 2024-12-18 15:12 | MHC.CM.ED ---
Addendum entered by Aditi Chase 12/18/24 16:17: [facility] is contracted with [facility] for hospice. Referral made via [facility]. Trying to determine if patient can d/c back to facility tonight or if it will need to wait until tomorrow. Original Note: Received case management consult from Dr Barajas. Patient came to the ER due to SOB from [facility]. Per Dr Barajas, family is interested in hospice. Hospital admission not required at this time. Return referral made in [facility]. Continue to monitor for d/c needs.
[2024-12-18 15:27] VITALS: BP 124/83; PULSE 104; RESP 23; O2SAT 98
[2024-12-18 16:17] VITALS: BP 113/80; PULSE 104; RESP 20; TEMP 37.3; O2SAT 100
--- NOTE | 2024-12-18 16:32 | PC.NURSE ---
patient remains somnolant, resp even and unlabored, remains on non rebreather mask. VSS
[2024-12-18 18:28] VITALS: BP 116/86; PULSE 106; RESP 20; TEMP 37.7; O2SAT 91
[2024-12-19 01:21] VITALS: PULSE 102; TEMP 36.9; O2SAT 94
--- NOTE | 2024-12-19 01:58 | PC.NURSE ---
this rn assumed care of pt @ 2300 pt provided with warm blacket and repositioned on R side pt provided with [employer]PER[employer]OR blanket bundle
--- NOTE | 2024-12-19 05:45 | PC.NURSE ---
pt brief changed and replaced with clean brief. pt repositioned utilizing pillows between knees. 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
--- NOTE | 2024-12-19 05:45 | MHC.EDTECH ---
Pt received incontinence care and also repositioned at this time with assistance of this tech and nurse.
[2024-12-19 06:01] VITALS: PULSE 95; O2SAT 94
--- NOTE | 2024-12-19 08:26 | PHA.MEDREC ---
Pharmacy Consult ? Medication Reconciliation Pharmacy has completed the medication reconciliation. Utilized list from [facility].
--- NOTE | 2024-12-19 09:34 | PC.NURSE ---
Resumed care of patient at 0700, pt resting comfortably at this time, hygiene care provided prior to EMS arrival, all monitors and stickers removed, facility updated on pt return, CM in contact with hospice. Pt sent back to facility on RA at this time, further orders to be placed by hospice if needed.
[2024-12-19 09:36] VITALS: BP 0/0; PULSE 0; RESP 0; TEMP -17.7; TEMP 0; O2SAT 0
--- NOTE | 2024-12-19 09:47 | MHC.CM.PN ---
CM SPOKE WITH HCP/SPOUSE EVELIO AND NOTIFIED OF RETURN TO [facility] TODAY AT 9:30 AM. SPOUSE IS IN AGREEMENT WITH HOSPICE [facility]. [facility] NOTIFIED OF TODAY'S TRANSFER BACK TO SNF VIA [facility] AND TELEPHONE MESSAGE. ED PROVIDER UPDATED. BLS TRANSPORT VIA [facility] AT 9:30 AM. CENTER AWARE AND UPDATED VIA ED RN/CM VIA [facility].
== END 2024-12-19 09:38 | disposition skilled nursing facility (03) ==
PROVIDERS: Emergency Provider Emergency Medicine; PCP Hospitalist
DX: R06.02 Shortness of breath (principal); G31.83 Neurocognitive disorder with Lewy bodies; F02.80 Dementia in other diseases classified elsewhere, unspecified severity, without behavioral disturbance, psychotic disturbance, mood disturbance, and anxiety; Z79.899 Other long term (current) drug therapy
CPT/HCPCS: 94640; 99284; 99285